=== PATIENT | female | born 1950 | race Caucasian/White ===

== ENCOUNTER 2016-08-24 15:16 | Emergency (ER) | payer MEDICARE, MEDICAID | END 2016-08-24 16:40 | disposition home or self-care (01) | DX: S83.8X2A Sprain of other specified parts of left knee, initial encounter (principal); W01.0XXA Fall on same level from slipping, tripping and stumbling without subsequent striking against object, initial encounter; Y93.01 Activity, walking, marching and hiking; Y92.017 Garden or yard in single-family (private) house as the place of occurrence of the external cause; I10 Essential (primary) hypertension; E78.00 Pure hypercholesterolemia, unspecified; J44.9 Chronic obstructive pulmonary disease, unspecified; K21.9 Gastro-esophageal reflux disease without esophagitis; M19.90 Unspecified osteoarthritis, unspecified site; F17.200 Nicotine dependence, unspecified, uncomplicated ==

== ENCOUNTER 2017-07-03 08:01 | Outpatient (CLI) | payer MEDICARE, MEDICAID ==
[2017-07-03 10:35] LABS: BASOPHILS % (AUTO) 0.5 %; EOSINOPHILS # (AUTO) 0.3 10^3/uL (0.0-0.7); EOSINOPHILS % (AUTO) 3.6 %; HGB - HEMOGLOBIN 13.7 g/dL (12.0-16.0); LYMPHOCYTES # (AUTO) 2.6 10^3/uL (1.5-3.5); LYMPHOCYTES % (AUTO) 34.1 %; MEAN CORPUSCULAR HEMOGLOBIN 30.4 pg (27.0-31.0); MEAN CORPUSCULAR HGB CONC 33.7 g/dL (32.0-36.0); MEAN CORPUSCULAR VOLUME 90.3 fL (81.0-99.0); MEAN PLATELET VOLUME 7.9 fL (7.9-10.8); MONOCYTES # (AUTO) 0.6 10^3/uL (0.0-1.0); MONOCYTES % (AUTO) 8.3 %; NEUTROPHILS # (AUTO) 4.1 10^3/uL (1.5-6.6); NEUTROPHILS % (AUTO) 53.5 %; PLT - PLATELET COUNT 274 10^3/uL (130-450); RED BLOOD COUNT 4.52 10^6/uL (4.20-5.40); RED CELL DISTRIBUTION WIDTH 14.1 % (12.0-15.0); WHITE BLOOD COUNT 7.6 x10^3/uL (4.8-10.8)
[2017-07-03 10:55] LABS: ALBUMIN 3.8 g/dL (3.2-5.5); ALBUMIN/GLOBULIN RATIO 1.2 (1.0-2.2); ALKALINE PHOSPHATASE 91 IU/L (42-121); ALT ALANINE AMINOTRANSFERASE 22 IU/L (10-60); AST ASPARTATE AMINOTRANSFERASE 20 IU/L (10-42); BILIRUBIN,TOTAL 0.4 mg/dL (0.2-1.0); BUN - BLOOD UREA NITROGEN 16 mg/dL (6-20); CALCIUM 9.2 mg/dL (8.5-10.3); CARBON DIOXIDE - CO2 24 mmol/L (21-32); CHLORIDE 103 mmol/L (101-111); CHOL/HDL RATIO 6.8 (<4.4); CHOLESTEROL 291 mg/dL; CREATININE 0.8 mg/dL (0.4-1.0); GFR - MDRD 72 (>89); GLUCOSE 128 mg/dL (70-100); HDL CHOLESTEROL 43 mg/dL; LDL CHOLESTEROL,CALCULATED 211 mg/dL; LDL/HDL RATIO 4.9 (<4.4); SODIUM 138 mmol/L (135-145); TOTAL PROTEIN 6.9 g/dL (6.7-8.2); VLDL CHOLESTEROL 37 mg/dL
== END 2017-07-03 08:02 | disposition home or self-care (01) ==
LOC: LAB.F 08:01
PROVIDERS: ATTEND Nurse Practitioner Family
DX: I10 Essential (primary) hypertension (principal); Z86.79 Personal history of other diseases of the circulatory system; F32.9 Major depressive disorder, single episode, unspecified
CPT/HCPCS: 36415; 80053; 80061; 83721; 84443; 85025

== ENCOUNTER 2017-07-07 13:24 | Emergency (ER) | payer MEDICARE, MEDICAID ==
--- NOTE | 2017-07-07 15:13 | ED Physician Documentation ---
History of Present Illness - Stated complaint Stated Complaint: LOWER ABD PX - Chief complaint Chief Complaint: Abd Pain - Additonal information Additional information: hx from pt 66 female s/p efraín to ER with subacute (several months) but acutely worse upper abd pain is taking prilocec and pepto s relief saw PMD and had labs 07/03 no imaging no fever no cp no soa no cough no back pain no dysuria one episode of diarrhea, no blood (dark from pepto) no vomiting, some nasuea also a SUTTON now which she thinks is due to dehydration Review of Systems Constitutional: denies: Fever Cardiac: denies: Chest pain / pressure Respiratory: denies: Dyspnea GI: reports: Abdominal Pain, Nausea, Diarrhea, Bloody / black stool (pepto) Neurologic: denies: Generalized weakness Endocrine: denies: Easy bruising / bleeding Immunocompromised: denies: Immunocompromised PD PAST MEDICAL HISTORY - Past Medical History Cardiovascular: Hypertension, High cholesterol Respiratory: COPD Neuro: Headache/migraine Endocrine/Autoimmune: None GI: GERD HIGH TENSION TESTER: None : None HEENT: None Psych: Depression, Anxiety Musculoskeletal: Chronic back pain Derm: None - Past Surgical History Past Surgical History: Yes Ortho: Knee replacement - Present Medications Home Medications: Ambulatory Orders Medication Instructions Recorded Confirmed Meloxicam 15 mg ORAL DAILY 04/03/14 01/13/16 Ziprasidone [Geodon] 60 mg PO DAILY 01/13/16 01/13/16 FLUoxetine [PROzac] 20 mg PO DAILY 02/03/16 Losartan [Cozaar] 50 mg PO DAILY 02/03/16 Nystatin 200,000 unit PO TID #300 ml 02/03/16 OLANZapine [Olanzapine] 5 mg PO DAILY 02/03/16 Trazodone HCl 100 mg PO DAILY 02/03/16 lamoTRIgine [LaMICtal] 200 mg PO 02/03/16 oxyCODONE/ACET 5/325 [Percocet 5 1 each PO Q4-6H PRN #12 tablet 08/24/16 mg/325 mg] Nitrofurantoin [Macrobid] 100 mg PO BID #14 capsule 07/07/17 Sucralfate 1 gm PO ACHS #120 tablet 07/07/17 raNITIdine [Zantac] 150 mg PO BID #60 tablet 07/07/17 - Allergies Allergies/Adverse Reactions: Allergies Allergy/AdvReac Type Severity Reaction Status Date / Time Penicillins Allergy Hives Verified 01/13/16 04:09 Sulfa (Sulfonamide Allergy Hives Verified 01/13/16 04:09 Antibiotics) - Social History Does the pt smoke?: Yes Smoking Status: Current every day smoker Does the pt drink ETOH?: No Does the pt have substance abuse?: No - Immunizations Immunizations are current?: No Immunizations: TDAP >10years/unknown - POLST Patient has POLST: No PD ED PE NORMAL - Vitals Vital signs reviewed: Yes - Neck Neck: Supple, no meningeal sign - Cardiac Cardiac: RRR - Respiratory Respiratory: No respiratory distress, Clear bilaterally - Abdomen Abdomen: Other (marked TTP with vol guarding upper abd, lower abd benign) - Derm Derm: Normal color - Extremities Extremities: No deformity Results - Vitals Vitals: Vital Signs - 24 hr 07/07/17 07/07/17 07/07/17 13:48 16:31 17:43 Temperature 36.7 C Heart Rate 81 95 95 Respiratory 16 15 16 Rate Blood Pressure 155/95 H 160/91 H 146/93 H O2 Saturation 96 93 93 Oxygen O2 Source Room air - Labs Labs: Laboratory Tests 07/07/17 07/07/17 07/07/17 15:09 15:09 15:09 WBC 9.4 RBC 4.64 Hgb 14.2 Hct 41.8 MCV 90.2 MCH 30.5 MCHC 33.8 RDW 14.3 Plt Count 279 MPV 7.6 L Neut # 5.0 Lymph # 3.5 Worth # 0.7 Eos # 0.2 Baso # 0.1 Absolute Nucleated RBC 0.00 Nucleated RBC % 0.0 Sodium 137 Potassium 3.8 Chloride 105 Carbon Dioxide 23 Anion Gap 9.0 BUN 16 Creatinine 0.9 Estimated GFR (MDRD) 62 L Glucose 103 H Calcium 9.3 Total Bilirubin 0.6 AST 27 ALT 24 Alkaline Phosphatase 101 Troponin I < 0.04 Total Protein 7.5 Albumin 4.4 Globulin 3.1 Albumin/Globulin Ratio 1.4 Lipase 13 L Urine Color Urine Clarity Urine pH Ur Specific [place] Urine Protein Urine Glucose (UA) Urine Ketones Urine Occult Blood Urine Nitrite Urine Bilirubin Urine Urobilinogen Ur Leukocyte Esterase Urine RBC Urine WBC Urine WBC Clumps Ur Squamous Epith Cells Urine Bacteria Ur Microscopic Review Urine Culture Comments 02/19/18 15:28 WBC RBC Hgb Hct MCV MCH MCHC RDW Plt Count MPV Neut # Lymph # Worth # Eos # Baso # Absolute Nucleated RBC Nucleated RBC % Sodium Potassium Chloride Carbon Dioxide Anion Gap BUN Creatinine Estimated GFR (MDRD) Glucose Calcium Total Bilirubin AST ALT Alkaline Phosphatase Troponin I Total Protein Albumin Globulin Albumin/Globulin Ratio Lipase Urine Color YELLOW Urine Clarity HAZY Urine pH 5.5 Ur Specific [place] 1.025 Urine Protein NEGATIVE Urine Glucose (UA) NEGATIVE Urine Ketones NEGATIVE Urine Occult Blood TRACE-INTA Urine Nitrite POSITIVE H Urine Bilirubin NEGATIVE Urine Urobilinogen 0.2 (NORMAL) Ur Leukocyte Esterase TRACE H Urine RBC 0-5 Urine WBC 11-25 H Urine WBC Clumps PRESENT Ur Squamous Epith Cells MANY Squamous H Urine Bacteria Many H Ur Microscopic Review INDICATED Urine Culture Comments NOT INDICATED - Rads (name of study) CT AP with PO and IV Radiology: See rad report (short segment of mild wall thickening near the hepatic flexure with no mass or obstruction could be peristalsis, ? blood in stool, rec colonoscopy, diverticulosis, fatty liver, s/p efraín) PD MEDICAL DECISION MAKING - ED course ED course: nl labs except UTI CT shows possible wall thickening near hepatic flexure and scopes are rec no perf, AAA, ischemic bowel etc will dc with continued prilosec, add zantac and carafate and refer to surgery for scopes as outpt and ab for UTI (+ eps but + nitrates and leuk est so do not think contaminate) Departure - Departure Disposition: 01 Home, Self Care Clinical Impression: Abdominal pain Qualifiers: Abdominal location: epigastric Qualified Code(s): R10.13 - Epigastric pain Urinary tract infection Qualifiers: Urinary tract infection type: site unspecified Hematuria presence: without hematuria Qualified Code(s): N39.0 - Urinary tract infection, site not specified Condition: Good Instructions: ED Abdominal Pain Unkn Cause, ED PUD Vs Gastritis Follow-Up: GATO PRIEST MD [Provider Admit Priv/Credential] - (for endoscopy and colonoscopy) Prescriptions: Nitrofurantoin [Macrobid] 100 mg PO BID #14 capsule raNITIdine [Zantac] 150 mg PO BID #60 tablet Sucralfate 1 gm PO ACHS #120 tablet Comments: Your labs looked fine except for a UTI - normal liver kidney and pancreas function, no anemia to suggest blood loss. The CT scan showed a thickened section or large bowel near your liver and you will need a colonoscopy to make sure this is not cancer. There was no bowel perforation/infection/blockage, no aneurysm, no kidney stones , no internal bleeding. So you do not need emergent surgery or admission. It is OK for you to go home. I recommend adding zantac and carafate to your prilosec. You can also take tylenol as needed for the pain but I do not recommend anything stronger as that might mask worsening or changing symptoms that we should know about And I have referred you to the surgeons to have scopes of your stomach to look for gastritis and ulcer disease as well as for a colonoscopy to evaluate the thickened area of bowel And I prescribed an antibiotic for the urine infection
[2017-07-07 15:15] LABS: BASOPHILS # (AUTO) 0.1 10^3/uL (0.0-0.1); BASOPHILS % (AUTO) 0.7 %; EOSINOPHILS # (AUTO) 0.2 10^3/uL (0.0-0.7); EOSINOPHILS % (AUTO) 1.7 %; HGB - HEMOGLOBIN 14.2 g/dL (12.0-16.0); LYMPHOCYTES # (AUTO) 3.5 10^3/uL (1.5-3.5); MEAN CORPUSCULAR HEMOGLOBIN 30.5 pg (27.0-31.0); MEAN CORPUSCULAR HGB CONC 33.8 g/dL (32.0-36.0); MEAN CORPUSCULAR VOLUME 90.2 fL (81.0-99.0); MEAN PLATELET VOLUME 7.6 fL (7.9-10.8); MONOCYTES # (AUTO) 0.7 10^3/uL (0.0-1.0); MONOCYTES % (AUTO) 7.5 %; NEUTROPHILS % (AUTO) 53.1 %; PLT - PLATELET COUNT 279 10^3/uL (130-450); RED BLOOD COUNT 4.64 10^6/uL (4.20-5.40); RED CELL DISTRIBUTION WIDTH 14.3 % (12.0-15.0); WHITE BLOOD COUNT 9.4 x10^3/uL (4.8-10.8)
[2017-07-07 15:28] LABS: ALBUMIN 4.4 g/dL (3.2-5.5); ALBUMIN/GLOBULIN RATIO 1.4 (1.0-2.2); BILIRUBIN,TOTAL 0.6 mg/dL (0.2-1.0); CALCIUM 9.3 mg/dL (8.5-10.3); CREATININE 0.9 mg/dL (0.4-1.0); TOTAL PROTEIN 7.5 g/dL (6.7-8.2)
[2017-07-07] MEDS ORDERED: IOPAMIDOL-300 50 ML VIAL ONE (15:32)
[2017-07-07] MEDS ORDERED: IOPAMIDOL-300 100 ML VIAL ONE (15:32)
[2017-07-07 15:37] LABS: BILIRUBIN,URINE NEGATIVE (NEGATIVE); GLUCOSE, URINE (UA) NEGATIVE (NEGATIVE); KETONES,URINE (UA) NEGATIVE (NEGATIVE); LEUKOCYTE ESTERASE, URINE TRACE (NEGATIVE); NITRITE,URINE POSITIVE (NEGATIVE); OCCULT BLOOD,URINE TRACE-INTA (NEGATIVE); PH,URINE 5.5 PH (5.0-7.5); PROTEIN,URINE NEGATIVE (NEGATIVE); UROBILINOGEN,URINE 0.2 (NORMAL) E.U./dL (NORMAL)
[2017-07-07 15:40] LABS: CLARITY,URINE HAZY (CLEAR)
[2017-07-07 15:48] LABS: BACTERIA,URINE Many /HPF (None Seen); RBC,URINE 0-5 /HPF (0-5); SQUAMOUS EPITHELIAL CELL,UR MANY Squamous (<= Few); WBC CLUMPS,URINE PRESENT
[2017-07-07] MEDS ORDERED: MORPHINE 2 MG/ML CARPUJECT IVP STA (16:18)
[2017-07-07] MEDS ORDERED: FAMOTIDINE 20 MG/50 ML 50 ML IV ONE (16:18)
[2017-07-07] MEDS ORDERED: IOPAMIDOL-300 50 ML VIAL PO ONE (17:25)
[2017-07-07] MEDS ORDERED: IOPAMIDOL-300 100 ML VIAL IVP ONE (17:26)
--- NOTE | 2017-07-07 18:06 | CT Preliminary Report ---
Exam: CT ABDOMEN/PELVIS W/ IMPRESSION: 1. Short segment of mild wall thickening in the colon at the hepatic flexure without a definitive mas s or evidence of obstruction. No significant adjacent inflammation. This could be due to peristalsis. Recommend correlating with anemia or positive occult blood in the stool. At present, patient may balaji efit from further imaging with colonoscopy. 2. Diverticulosis. No inflammation. 3. Fatty liver. No mass. 4. Patient status post cholecystectomy. No common bile duct and intrahepatic bile duct dilation. [facility] SITE ID: [id number]
--- NOTE | 2017-07-07 18:21 | CT Report ---
EXAM: CT ABDOMEN AND PELVIS EXAM DATE: 07/07/2017 05:13 PM. CLINICAL HISTORY: Upper abdomen pain. COMPARISONS: Ultrasound 01/13/2016. CT abdomen and pelvis 07/12/2014. TECHNIQUE: Routine helical CT imaging was performed through the abdomen and pelvis. IV contrast: Isov ue 300 100 mL. Enteric contrast: Yes. Reconstructions: Coronal and sagittal. In accordance with CT protocol optimization, one or more of the following dose reduction techniques w ere utilized for this exam: automated exposure control, adjustment of mA and/or KV based on patient s ize, or use of iterative reconstructive technique. FINDINGS: Lung Bases: Mild cardiac enlargement. Small hiatal hernia. Trace pericardial effusion. No significant pleural effusion. Liver: Fatty liver without mass or intrahepatic bile duct dilation. Gallbladder/Bile Ducts: Gallbladder is absent. No common bile duct dilation noted. Spleen: Normal. Pancreas: Normal. Adrenal Glands: Normal. Kidneys: Normal. No masses or hydronephrosis. Peritoneal Cavity/Bowel: No free fluid, free air or adenopathy. No acute inflammatory process. Normal stomach and small bowel. Colonic diverticulosis is present. There is a short segment of mild wall th ickening of the colon at the hepatic flexure best seen on image 5, 30. These findings are less conspi cuous on the sagittal reconstruction. Similar findings are also noted on the axial image 34. No signi ficant adjacent inflammation. Pelvic Organs: Normal. The bladder and visualized pelvic organs are within normal limits. Vasculature: Diffuse atheromatous plaques are present in the abdominal aorta and branch vessels. No a neurysm. Normal IVC. Bones: No significant abnormality. Other: None. IMPRESSION: 1. Short segment of mild wall thickening in the colon at the hepatic flexure without a definitive mas s or evidence of obstruction. No significant adjacent inflammation. Imaging findings favor peristalsi s. Recommend correlating with anemia or positive occult blood in the stool. If present, patient may b enefit from further imaging with colonoscopy. 2. Diverticulosis. No inflammation. 3. Fatty liver. No mass. 4. Patient is status post cholecystectomy. No common bile duct or new intrahepatic bile duct dilation . [facility] Referring Provider Line: [phone] SITE ID: [id number]
[2017-07-07 18:52] VITALS: BP 153/90
== END 2017-07-07 19:00 | disposition home or self-care (01) ==
LOC: ED 13:24
DX: R10.13 Epigastric pain (principal); N39.0 Urinary tract infection, site not specified; R93.5 Abnormal findings on diagnostic imaging of other abdominal regions, including retroperitoneum; I10 Essential (primary) hypertension; E78.00 Pure hypercholesterolemia, unspecified; F17.200 Nicotine dependence, unspecified, uncomplicated; Z96.659 Presence of unspecified artificial knee joint
CPT/HCPCS: 36415; 74177; 80053; 81001; 83690; 84484; 85025; 96365; 96375; 99283; 99284; Q9967; 81003; 87086

== ENCOUNTER 2017-07-12 11:38 | Emergency (ER) | payer MEDICARE, MEDICAID ==
[2017-07-12] MEDS ORDERED: MAG HYDROX/AL HYDROX/SIMETH 30 ML UDC PO STA (12:39)
[2017-07-12] MEDS ORDERED: LIDOCAINE VISCOUS 2% 15 ML UDC MM STA (12:39)
--- NOTE | 2017-07-12 12:40 | ED Physician Documentation ---
PD HPI ABD PAIN - Stated complaint Stated Complaint: ABD PAIN - Chief complaint Chief Complaint: Abd Pain - History obtained from History obtained from: Patient, Family () - History of Present Illness Timing - onset: Other (For the last 2 months she has had daily intermittent epigastric pain that radiates through to the back that is worse after eating after about 20 minutes after eating. It does not get worse with water. She has been on a PPI and Carafate without relief. She had a CT scan showing some thickening of the hepatic flexure within the last week but no other abnormalities. Labs were grossly normal at that time. She has a referral to surgery to be done next Friday for evaluation, probably likely to follow with upper and lower endoscopies. Of note she admits to having a history of opiate abuse which is not active.) Review of Systems Ten Systems: 10 systems reviewed and negative Constitutional: denies: Fever, Chills Nose: denies: Rhinorrhea / runny nose, Congestion GI: reports: Abdominal Pain, Nausea. 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 : None HEENT: None Psych: Depression, Anxiety Musculoskeletal: Chronic back pain Derm: None - Past Surgical History Past Surgical History: Yes Ortho: Knee replacement - Present Medications Home Medications: Ambulatory Orders Medication Instructions Recorded Confirmed Meloxicam 15 mg ORAL DAILY 04/03/14 01/13/16 Ziprasidone [Geodon] 60 mg PO DAILY 01/13/16 01/13/16 FLUoxetine [PROzac] 20 mg PO DAILY 02/03/16 Losartan [Cozaar] 50 mg PO DAILY 02/03/16 Nystatin 200,000 unit PO TID #300 ml 02/03/16 OLANZapine [Olanzapine] 5 mg PO DAILY 02/03/16 Trazodone HCl 100 mg PO DAILY 02/03/16 lamoTRIgine [LaMICtal] 200 mg PO 02/03/16 oxyCODONE/ACET 5/325 [Percocet 5 1 each PO Q4-6H PRN #12 tablet 08/24/16 mg/325 mg] Nitrofurantoin [Macrobid] 100 mg PO BID #14 capsule 07/07/17 Sucralfate 1 gm PO ACHS #120 tablet 07/07/17 raNITIdine [Zantac] 150 mg PO BID #60 tablet 07/07/17 Omeprazole [PriLOSEC] 20 mg PO BID #60 capsule 07/12/17 Oxycodone HCl/Acetaminophen 1 - 2 tab PO Q4H PRN #15 tablet 07/12/17 [Percocet 5-325 mg Tablet] - Allergies Allergies/Adverse Reactions: Allergies Allergy/AdvReac Type Severity Reaction Status Date / Time Penicillins Allergy Hives Verified 07/12/17 11:48 Sulfa (Sulfonamide Allergy Hives Verified 07/12/17 11:48 Antibiotics) - Social History Does the pt smoke?: Yes Smoking Status: Current every day smoker Does the pt drink ETOH?: No Does the pt have substance abuse?: No - Immunizations Immunizations are current?: No Immunizations: TDAP >10years/unknown - POLST Patient has POLST: No PD ED PE NORMAL - Vitals Vital signs reviewed: Yes - General General: Alert and oriented X 3, No acute distress - Cardiac Cardiac: RRR, No murmur - Respiratory Respiratory: No respiratory distress, Clear bilaterally - Abdomen Abdomen: Normal bowel sounds, Soft, Non tender - Extremities Extremities: No edema, No calf tenderness / cord - Neuro Neuro: Alert and oriented X 3, Normal speech Results - Vitals Vitals: Vital Signs - 24 hr 07/12/17 11:43 Temperature 37.0 C Heart Rate 89 Respiratory 20 Rate Blood Pressure 153/84 H O2 Saturation 97 Oxygen O2 Source Room air - Labs Labs: Laboratory Tests 07/12/17 07/12/17 07/12/17 12:42 12:42 12:48 WBC 7.7 RBC 4.24 Hgb 13.1 Hct 38.3 MCV 90.3 MCH 30.9 MCHC 34.2 RDW 14.3 Plt Count 256 MPV 7.6 L Neut # 3.8 Lymph # 3.0 [place] # 0.5 Eos # 0.3 Baso # 0.0 Absolute Nucleated RBC 0.00 Nucleated RBC % 0.1 Sodium 140 Potassium 3.7 Chloride 104 Carbon Dioxide 24 Anion Gap 12.0 BUN 18 Creatinine 0.9 Estimated GFR (MDRD) 62 L Glucose 91 Calcium 8.9 Total Bilirubin 0.3 AST 23 ALT 22 Alkaline Phosphatase 95 Total Protein 7.0 Albumin 3.9 Globulin 3.1 Albumin/Globulin Ratio 1.3 Lipase 21 L Urine Color YELLOW Urine Clarity CLEAR Urine pH 6.0 Ur Specific [place] 1.025 Urine Protein NEGATIVE Urine Glucose (UA) NEGATIVE Urine Ketones NEGATIVE Urine Occult Blood TRACE-INTA Urine Nitrite NEGATIVE Urine Bilirubin NEGATIVE Urine Urobilinogen 0.2 (NORMAL) Ur Leukocyte Esterase NEGATIVE Ur Microscopic Review NOT INDICATED Urine Culture Comments NOT INDICATED Urine Opiates Screen NEGATIVE Ur Oxycodone Screen NEGATIVE Urine Methadone Screen NEGATIVE Ur Propoxyphene Screen NEGATIVE Ur Barbiturates Screen NEGATIVE Ur Tricyclics Screen NEGATIVE Ur Phencyclidine Scrn NEGATIVE Ur Amphetamine Screen NEGATIVE U Methamphetamines Scrn NEGATIVE U Benzodiazepines Scrn NEGATIVE Urine Cocaine Screen NEGATIVE U Cannabinoids Screen NEGATIVE PD MEDICAL DECISION MAKING - ED course ED course: 66-year-old woman with subacute epigastric pain that is worsening status post negative mostly CT within the last week and is scheduled for surgical consultation. Her labs remain benign. She had partial relief with a GI cocktail here. We discussed with her the timing of medications especially with regard to sucralfate. She does have a history of narcotic addiction but would like some pain medications and the will hold them. Departure - Departure Disposition: 01 Home, Self Care Clinical Impression: Abdominal pain Qualifiers: Abdominal location: epigastric Qualified Code(s): R10.13 - Epigastric pain Condition: Good Record reviewed to determine appropriate education?: Yes Instructions: ED Abdominal Pain Unkn Cause Prescriptions: Omeprazole [PriLOSEC] 20 mg PO BID #60 capsule Oxycodone HCl/Acetaminophen [Percocet 5-325 mg Tablet] 1 - 2 tab PO Q4H PRN #15 tablet PRN Reason: Pain Comments: Call your doctor to arrange a follow-up appointment, make the next available appointment. In the interim, return anytime if worse or if new symptoms develop. Your blood pressure was elevated today on check into the emergency department. This does not mean that you have hypertension, it is a common phenomenon to come to the emergency department and have elevated blood pressure. I recommend that you see your primary care physician within the week to have it rechecked when you are feeling better. Do not drink or drive while taking narcotic pain medication. Note that many narcotic pain relievers also contain Tylenol/acetaminophen. Please ensure that your total dose of acetaminophen from all sources does not exceed 3 g (3000 mg) per day. You may get constipated while on this medication. Take a stool softener such as Colace twice a day while you are on it. Also add an [id number] laxative such as senna or MiraLAX on any day that you do not have a bowel movement. If you received a narcotic pain medication or sedative while in the emergency department, do not drive for the next 24 hours.
[2017-07-12 12:53] LABS: MUDS CUTOFF CONCENTRATIONS CUTOFF CONC BELOW:
[2017-07-12 12:55] LABS: BILIRUBIN,URINE NEGATIVE (NEGATIVE); GLUCOSE, URINE (UA) NEGATIVE (NEGATIVE); KETONES,URINE (UA) NEGATIVE (NEGATIVE); LEUKOCYTE ESTERASE, URINE NEGATIVE (NEGATIVE); NITRITE,URINE NEGATIVE (NEGATIVE); OCCULT BLOOD,URINE TRACE-INTA (NEGATIVE); PROTEIN,URINE NEGATIVE (NEGATIVE); UROBILINOGEN,URINE 0.2 (NORMAL) E.U./dL (NORMAL)
[2017-07-12 12:57] LABS: CLARITY,URINE CLEAR (CLEAR)
[2017-07-12 13:00] LABS: BASOPHILS % (AUTO) 0.4 %; EOSINOPHILS # (AUTO) 0.3 10^3/uL (0.0-0.7); EOSINOPHILS % (AUTO) 3.7 %; HGB - HEMOGLOBIN 13.1 g/dL (12.0-16.0); LYMPHOCYTES % (AUTO) 39.2 %; MEAN CORPUSCULAR HEMOGLOBIN 30.9 pg (27.0-31.0); MEAN CORPUSCULAR HGB CONC 34.2 g/dL (32.0-36.0); MEAN CORPUSCULAR VOLUME 90.3 fL (81.0-99.0); MEAN PLATELET VOLUME 7.6 fL (7.9-10.8); MONOCYTES # (AUTO) 0.5 10^3/uL (0.0-1.0); MONOCYTES % (AUTO) 6.8 %; NEUTROPHILS # (AUTO) 3.8 10^3/uL (1.5-6.6); NEUTROPHILS % (AUTO) 49.9 %; PLT - PLATELET COUNT 256 10^3/uL (130-450); RED BLOOD COUNT 4.24 10^6/uL (4.20-5.40); RED CELL DISTRIBUTION WIDTH 14.3 % (12.0-15.0); WHITE BLOOD COUNT 7.7 x10^3/uL (4.8-10.8)
[2017-07-12 13:06] LABS: AMPHETAMINE SCREEN,URINE NEGATIVE (NEGATIVE); BENZODIAZEPINES SCREEN, URINE NEGATIVE (NEGATIVE); COCAINE SCREEN URINE NEGATIVE (NEGATIVE); METHADONE SCREEN, URINE NEGATIVE (NEGATIVE); METHAMPHETAMINES SCREEN, URINE NEGATIVE (NEGATIVE); OPIATE SCREEN, URINE NEGATIVE (NEGATIVE); OXYCODONE SCREEN, URINE NEGATIVE (NEGATIVE); PROPOXYPHENE SCREEN, URINE NEGATIVE (NEGATIVE); TRICYCLIC ANTIDEPRESSANT,URINE NEGATIVE (NEGATIVE)
[2017-07-12 13:08] LABS: ALBUMIN 3.9 g/dL (3.2-5.5); ALBUMIN/GLOBULIN RATIO 1.3 (1.0-2.2); BILIRUBIN,TOTAL 0.3 mg/dL (0.2-1.0); CALCIUM 8.9 mg/dL (8.5-10.3); CREATININE 0.9 mg/dL (0.4-1.0)
[2017-07-12] MEDS ORDERED: oxyCOD/ACETAMIN 5 MG/325 MG TABLET PO STA (13:23)
[2017-07-12 13:46] VITALS: BP 144/69
== END 2017-07-12 13:44 | disposition home or self-care (01) ==
LOC: ED 11:38
DX: R10.31 Right lower quadrant pain (principal); I10 Essential (primary) hypertension; E78.00 Pure hypercholesterolemia, unspecified; Z96.659 Presence of unspecified artificial knee joint
CPT/HCPCS: 36415; 80053; 80306; 81003; 83690; 85025; 99283; A9270; 81001; 87086

== ENCOUNTER 2017-07-21 21:31 | Outpatient (CLI) | payer MEDICARE, MEDICAID ==
[2017-07-21 17:17] LABS: BILIRUBIN,URINE NEGATIVE (NEGATIVE); GLUCOSE, URINE (UA) NEGATIVE (NEGATIVE); KETONES,URINE (UA) NEGATIVE (NEGATIVE); LEUKOCYTE ESTERASE, URINE TRACE (NEGATIVE); NITRITE,URINE POSITIVE (NEGATIVE); OCCULT BLOOD,URINE TRACE-INTA (NEGATIVE); PROTEIN,URINE NEGATIVE (NEGATIVE); UROBILINOGEN,URINE 0.2 (NORMAL) E.U./dL (NORMAL)
[2017-07-21 17:23] LABS: BACTERIA,URINE Few /HPF (None Seen); CLARITY,URINE CLEAR (CLEAR); RBC,URINE 0-5 /HPF (0-5); SQUAMOUS EPITHELIAL CELL,UR RARE Squamous (<= Few)
== END 2017-07-21 21:32 | disposition home or self-care (01) ==
LOC: LAB.R 21:31
PROVIDERS: ATTEND Nurse Practitioner Family
DX: R30.0 Dysuria (principal)
CPT/HCPCS: 81001; 87086

== ENCOUNTER 2017-08-05 13:30 | Outpatient (CLI) | payer MEDICARE, MEDICAID | END 2017-08-05 13:31 | disposition home or self-care (01) | LOC: LAB.R 13:30 | PROVIDERS: ATTEND Nurse Practitioner Family | DX: R30.0 Dysuria (principal) | CPT/HCPCS: 87086 ==

== ENCOUNTER 2017-08-07 07:00 | Day surgery (SDC) | payer MEDICARE, MEDICAID ==
[2017-08-07] MEDS ORDERED: LACTATED RINGERS 1,000 ML IV ONE ×2 (07:22→08:40)
[2017-08-07] MEDS ORDERED: MIDAZOLAM 2 MG/2 ML VIAL IVP ONE (08:13)
[2017-08-07] MEDS ORDERED: fentaNYL 250 MCG/5 ML VIAL IVP ONE (08:13)
--- NOTE | 2017-08-07 08:15 | HISTORY & PHYSICAL EXAMINATION ---
HPI - History of Present Illness HPI Comment/Other: Patient is here for epigastric pain, nausea, GERD and colonic thickening on CT. Since her last visit with me the epigastric pain has resolved. She is continuing to take omeprazole and carafate. Current Meds: OXYCODONE HCL 5 MG ORAL TABLET (OXYCODONE HCL) Take one to two tablets by mouth as needed SUCRALFATE 1 GM ORAL TABLET (SUCRALFATE) Dissolve one tablet in water, drink before meals and bedtime, four times daily ONDANSETRON 4 MG ORAL TABLET DISINTEGRATING (ONDANSETRON) one tablet every 8 hrs as needed for nausea FLONASE 50 MCG/ACT NASAL SUSPENSION (FLUTICASONE PROPIONATE) one puff each nostril each day for sinus congestion LAMOTRIGINE 200 MG ORAL TABLET (LAMOTRIGINE) Take two tablets at bedtime LOSARTAN POTASSIUM 50 MG ORAL TABLET (LOSARTAN POTASSIUM) Take one tablet by mouth daily SERTRALINE HCL 100 MG ORAL TABLET (SERTRALINE HCL) one tablet by mouth daily for mood [facility] OMEPRAZOLE 20 MG ORAL TABLET DELAYED RELEASE (OMEPRAZOLE) one tablet by mouth daily for GERD TRAZODONE HCL 100 MG ORAL TABLET (TRAZODONE HCL) 1 tab po daily VITAMIN D 1000 UNIT ORAL TABLET (CHOLECALCIFEROL) 8 daily for vit D deficiency Past Medical History: Reviewed history from 03/28/2017 and no changes required: pneumonia alcoholism-sober x 2 years. Attends [employer] smoker-trying to quit Anxiety Asthma Depression High blood pressure Migraines Sleep Apnea Hyperlipidemia Emphysema Chronic Cough Severe Snoring Frequent Indigestion Heartbeat Acid Reflux Stomach ulcer Prednisone Use Dentures Claustrophobia Past Surgical History: Reviewed history from 09/05/2016 and no changes required: arthroscopic left knee x2 Carpal Tunnel Release Knee Arthroscopy Total Knee Arthroplasty Urinary incontinence surgery Denies any prior history of complications from anesthesia. Denies any history of surgical complications. Family History Summary: Reviewed history Last on 02/18/2017 and no changes required:07/15/2017 Mother (biol.) - Has Family History of Alcoholism - Entered On: 09/05/2016 Mother (biol.) - Has Family History of Arthritis - Entered On: 09/05/2016 Mother (biol.) - Has Family History of Anxiety - Entered On: 09/05/2016 Mother (biol.) - Has Family History of Hypertension - Entered On: 09/05/2016 Father (biol.) - Has Family History of Arthritis - Entered On: 09/05/2016 Father (nina.) - Has Family History of Depression - Entered On: 09/05/2016 Father (nina.) - Has Family History of Hypertension - Entered On: 09/05/2016 Mother () - Has Family History of Other Medical Problems - cancer - Entered On: 07/15/2017 Father (nina.) - Has Family History of Alcoholism - Entered On: 07/15/2017 General Comments - FH: arthritis and hypertension Social History: Reviewed history from 03/28/2017 and no changes required: Has a daughter in [place]. Lives locally with a partner. Lost her son 4 years ago. Had a seizure and . Unemployed. 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 Risk Factors: Smoked Tobacco Use: Current every day smoker Cigarettes: Yes Drug use: no Alcohol use: no Exercise: yes Times per week: 1 Type of Exercise: walking Review of Systems General Denies weight loss. GI Complains of abdominal pain and nausea. Denies vomiting, diarrhea, constipation and hematochezia. CV Denies chest pains. Resp Denies shortness of breath. Psych Complains of anxiety. Heme Denies bleeding. Medications were reviewed with the patient during this visit. Allergies were reviewed with the patient during this visit. Allergies: PENICILLIN V POTASSIUM (Critical) SULFA (Critical) Physical Exam General: normal appearance and obese. Lungs: clear bilaterally to A & P Heart: regular rate and rhythm, S1, S2 without murmurs, rubs, gallops, or clicks Abdomen: bowel sounds positive; abdomen soft and non-tender without masses, organomegaly, or hernias noted Pulses: pulses normal in all 4 extremities Cervical Nodes: no significant adenopathy Psych: alert and cooperative; normal mood and affect; normal attention span and concentration Impression & Recommendations: proceed with EGD and colonoscopy. PMH/PSH - Past Medical History Cardiovascular: positive: Hypertension, High cholesterol Respiratory: positive: COPD, Sleep apnea, CPAP use Neuro: positive: Headache/migraine Endocrine/Autoimmune: positive: None GI: positive: GERD, Ulcers CLINICAL UNIT COORDINATOR: positive: None : positive: None HEENT: positive: None Psych: positive: Depression, Anxiety, Bipolar disorder, Panic attacks, ADD/ADHD , Claustrophobia Musculoskeletal: positive: Osteoarthritis, Chronic back pain Derm: positive: Eczema MRSA Hx?: No - Past Surgical History Ortho: positive: Knee replacement, Arthroscopic surgery, Carpal Tunnel surgery Social & Family Hx - Social History Does the pt smoke?: Yes Smoking Status: Current every day smoker Does the pt drink ETOH?: No Does the pt have substance abuse?: No - POLST Patient has POLST: No Meds/Allgy - Home Medications Home Medications: Ambulatory Orders Medication Instructions Recorded Confirmed Losartan [Cozaar] 50 mg PO DAILY 02/03/16 08/07/17 OLANZapine [Olanzapine] 5 mg PO DAILY 02/03/16 08/07/17 Trazodone HCl 100 mg PO DAILY 02/03/16 08/07/17 lamoTRIgine [LaMICtal] 200 mg PO BID 02/03/16 08/07/17 Sucralfate 1 gm PO ACHS #120 tablet 07/07/17 08/07/17 raNITIdine [Zantac] 150 mg PO BID #60 tablet 07/07/17 08/07/17 Hyoscyamine [Levsin] 0.125 08/06/17 Sertraline HCl 100 mg PO DAILY 08/06/17 08/07/17 Trazodone HCl 100 mg PO DAILY 08/06/17 08/07/17 Acetaminophen [Tylenol Extra 2 PRN 08/07/17 Strength] Ibuprofen 2 PRN 08/07/17 Ondansetron Odt [Zofran Odt] 1 PRN 08/07/17 - Allergies Allergies/Adverse Reactions: Allergies Allergy/AdvReac Type Severity Reaction Status Date / Time Penicillins Allergy Hives Verified 07/12/17 11:48 Sulfa (Sulfonamide Allergy Hives Verified 07/12/17 11:48 Antibiotics) Exam - Vital Signs Vital Signs: Vital Signs x48h Temp Pulse Resp BP Pulse Ox 08/07/17 07:07 36.2 C L 106 H 18 126/84 H 96
[2017-08-07] MEDS ORDERED: BENZOCAINE/TETRACAINE/BUTAMBEN SPRAY 56 GM TOP ONE (08:18)
[2017-08-07 09:18] VITALS: BP 132/78
== END 2017-08-07 07:01 | disposition home or self-care (01) ==
LOC: SDS 07:00
PROVIDERS: ATTEND Surgery
PROC: 0DJD8ZZ Inspection of Lower Intestinal Tract, Via Natural or Artificial Opening Endoscopic (ICD-10-PCS; principal; 2017-08-07 08:15)
PROC: 0DJ08ZZ Inspection of Upper Intestinal Tract, Via Natural or Artificial Opening Endoscopic (ICD-10-PCS; 2017-08-07 08:15)
DX: K57.30 Diverticulosis of large intestine without perforation or abscess without bleeding (principal); K64.8 Other hemorrhoids; K44.9 Diaphragmatic hernia without obstruction or gangrene; R10.13 Epigastric pain; F41.9 Anxiety disorder, unspecified; F32.9 Major depressive disorder, single episode, unspecified; J45.909 Unspecified asthma, uncomplicated; F17.210 Nicotine dependence, cigarettes, uncomplicated; K21.9 Gastro-esophageal reflux disease without esophagitis
CPT/HCPCS: 43235; 45378; A9270; J3010; J7120

== ENCOUNTER 2017-08-15 10:00 | Outpatient (CLI) | payer MEDICARE, MEDICAID ==
[2017-08-15 17:57] LABS: BILIRUBIN,URINE NEGATIVE (NEGATIVE); GLUCOSE, URINE (UA) NEGATIVE (NEGATIVE); KETONES,URINE (UA) NEGATIVE (NEGATIVE); LEUKOCYTE ESTERASE, URINE NEGATIVE (NEGATIVE); NITRITE,URINE NEGATIVE (NEGATIVE); OCCULT BLOOD,URINE SMALL (NEGATIVE); PROTEIN,URINE NEGATIVE (NEGATIVE); UROBILINOGEN,URINE 0.2 (NORMAL) E.U./dL (NORMAL)
[2017-08-15 18:00] LABS: CLARITY,URINE CLEAR (CLEAR)
[2017-08-15 18:10] LABS: RBC,URINE 0-5 /HPF (0-5); SQUAMOUS EPITHELIAL CELL,UR FEW Squamous (<= Few)
[2017-08-15 18:11] LABS: BACTERIA,URINE Rare /HPF (None Seen)
== END 2017-08-15 10:01 | disposition home or self-care (01) ==
LOC: LAB.R 10:00
PROVIDERS: ATTEND Nurse Practitioner Family
DX: R30.0 Dysuria (principal)
CPT/HCPCS: 81001; 87086

== ENCOUNTER 2017-08-18 19:00 | Outpatient (CLI) | payer MEDICARE, MEDICAID ==
--- NOTE | 2017-08-19 09:12 | Ultrasound Report ---
ABDOMEN ULTRASOUND: 08/18/2017 HISTORY: Acute abdominal pain. COMPARISON: CT scan abdomen and pelvis 07/07/2017. TECHNIQUE: Real-time scanning by the diamond die driller with saved static images reviewed. FINDINGS: LIVER: Mild hepatomegaly with the liver length 17.8 cm. Normal directional portal venous blood flow. Mild diffuse fatty infiltration without focal masses. GALLBLADDER: Surgically absent. COMMON BILE DUCT: 6 mm. PANCREAS: Partially obscured by bowel gas. Pancreatic duct 2.5 mm. KIDNEYS: Right 10.6 cm longitudinally. Left 9.9 cm longitudinally. No evidence of mass, stones, perinephric fluid, or obstruction. SPLEEN: 9.9 cm. AORTA AND INFERIOR VENA CAVA: Unremarkable. FREE FLUID: None. IMPRESSION: MILD HEPATOMEGALY WITH FATTY INFILTRATION OF THE LIVER. STATUS POST CHOLECYSTECTOMY. OTHERWISE NEGATIVE. TD: 08/19/2017 09:11 MTDHalie
== END 2017-08-18 19:01 | disposition home or self-care (01) ==
LOC: DI 19:00
PROVIDERS: ATTEND Nurse Practitioner Family
DX: K76.0 Fatty (change of) liver, not elsewhere classified (principal); Z90.49 Acquired absence of other specified parts of digestive tract
CPT/HCPCS: 76700

== ENCOUNTER 2018-01-09 11:12 | Outpatient (CLI) | payer MEDICARE, MEDICAID ==
[2018-01-09 17:18] LABS: BILIRUBIN,URINE NEGATIVE (NEGATIVE); GLUCOSE, URINE (UA) NEGATIVE (NEGATIVE); KETONES,URINE (UA) NEGATIVE (NEGATIVE); LEUKOCYTE ESTERASE, URINE NEGATIVE (NEGATIVE); NITRITE,URINE NEGATIVE (NEGATIVE); OCCULT BLOOD,URINE TRACE-INTA (NEGATIVE); PROTEIN,URINE NEGATIVE (NEGATIVE); UROBILINOGEN,URINE 0.2 (NORMAL) E.U./dL (NORMAL)
[2018-01-09 17:25] LABS: CLARITY,URINE CLEAR (CLEAR)
[2018-01-09 17:35] LABS: BACTERIA,URINE Many /HPF (None Seen); MUCUS,URINE Few Strands; RBC,URINE 0-5 /HPF (0-5); SQUAMOUS EPITHELIAL CELL,UR MANY Squamous (<= Few)
== END 2018-01-09 11:13 | disposition home or self-care (01) ==
LOC: LAB.F 11:12
PROVIDERS: ATTEND Family Medicine
DX: R31.9 Hematuria, unspecified (principal)
CPT/HCPCS: 81001

== ENCOUNTER 2018-01-25 04:38 | Outpatient (CLI) | payer MEDICARE, MEDICAID | END 2018-01-25 04:39 | disposition short-term general hospital (02) | LOC: EMS 04:38 | PROVIDERS: ATTEND Surgery | DX: R07.9 Chest pain, unspecified (principal); R61 Generalized hyperhidrosis | CPT/HCPCS: A0425; A0433 ==

== ENCOUNTER 2018-04-14 17:04 | Outpatient (CLI) | payer MEDICARE | END 2018-04-14 17:05 | disposition home or self-care (01) | LOC: RT.S 17:04 | PROVIDERS: ATTEND Nurse Practitioner Family | DX: I20.9 Angina pectoris, unspecified (principal) | CPT/HCPCS: 93005 ==

== ENCOUNTER 2019-02-26 08:46 | Outpatient (CLI) | payer MEDICARE, MEDICAID ==
[2019-02-26 18:30] LABS: ALBUMIN 3.9 g/dL (3.2-5.5); ALBUMIN/GLOBULIN RATIO 1.4 (1.0-2.2); ALKALINE PHOSPHATASE 131 IU/L (42-121); ALT ALANINE AMINOTRANSFERASE 21 IU/L (10-60); AST ASPARTATE AMINOTRANSFERASE 20 IU/L (10-42); BILIRUBIN,TOTAL 0.3 mg/dL (0.2-1.0); BUN - BLOOD UREA NITROGEN 26 mg/dL (6-20); CARBON DIOXIDE - CO2 23 mmol/L (21-32); CHLORIDE 108 mmol/L (101-111); CHOL/HDL RATIO 2.9 (<4.4); CHOLESTEROL 188 mg/dL; CREATININE 0.9 mg/dL (0.4-1.0); GFR - MDRD 62 (>89); GLUCOSE 114 mg/dL (70-100); HDL CHOLESTEROL 64 mg/dL; LDL CHOLESTEROL,CALCULATED 108 mg/dL; LDL/HDL RATIO 1.7 (<4.4); SODIUM 140 mmol/L (135-145); TOTAL PROTEIN 6.6 g/dL (6.7-8.2); VLDL CHOLESTEROL 16 mg/dL
[2019-02-26 18:35] LABS: HB2 TOTAL 11.1 g/dL; HEMOGLOBIN A1C 0.49 g/dL; HEMOGLOBIN A1C % 6.2 % (4.6-6.2)
== END 2019-02-26 08:47 | disposition home or self-care (01) ==
LOC: LAB.S 08:46
PROVIDERS: ATTEND Internal Medicine
DX: E78.5 Hyperlipidemia, unspecified (principal); R73.02 Impaired glucose tolerance (oral); F31.31 Bipolar disorder, current episode depressed, mild
CPT/HCPCS: 36415; 80053; 80061; 83036; 83721; 84443

== ENCOUNTER 2019-03-30 09:18 | Outpatient (CLI) | payer MEDICARE, MEDICAID ==
--- NOTE | 2019-03-30 11:52 | XRAY Report ---
Reason: LOW BACK PAIN, HIP PAIN Procedure Date: 03/30/2019 Accession Number: [id number] / [id number] Procedure: XRS - Lumbar Spine 2 View CPT Code: Final Report FULL RESULT: EXAM: LUMBAR SPINE RADIOGRAPHY BILATERAL HIP RADIOGRAPHY EXAM DATE: 03/30/2019 09:43 AM. CLINICAL HISTORY: Bilateral hip/pelvis pain. COMPARISON: Pelvis 1 view 03/01/2014 LUMBAR SPINE 2 VIEW 03/01/2014 2:39 PM. TECHNIQUE: Pelvis with hips 2 views each, lumbar spine, 2 views. FINDINGS: Lumbar Spine: Anterior bridging osteophytes are seen at T11-T12, T12-L1, and L1-L2. There is increased disk space narrowing at L1-L2 since the prior exam. A mild compression deformity is now seen at L2 without significant vertebral body height loss. Anterior osteophytes are also seen at L3, L4, and T10. Facet hypertrophy at L3-L4, L4-L5, and L5-S1 have increased since the prior exam. The spinal alignment is maintained. The sacroiliac joints are normal. Hip/Pelvis: Both hips are seated. The bones of the pelvis are intact and well aligned. There are no acute fractures. Sacroiliac joints are normal. No focal soft tissue swelling is seen. The visible bowel gas pattern is nonobstructive. IMPRESSION: Progressive degenerative changes in the thoracolumbar spine with mild chronic appearing compression deformity, likely chronic, at L1 without significant vertebral body height loss and increased L1-L2 disk space narrowing. No acute osseous abnormality in the pelvis or hips. RADIA
--- NOTE | 2019-03-30 11:52 | XRAY Report ---
Reason: BILATERAL HIP/PELVIS PAIN Procedure Date: 03/30/2019 Accession Number: [id number] / [id number] Procedure: XRS - Hips 2V BILAT CPT Code: Final Report FULL RESULT: EXAM: LUMBAR SPINE RADIOGRAPHY BILATERAL HIP RADIOGRAPHY EXAM DATE: 03/30/2019 09:43 AM. CLINICAL HISTORY: Bilateral hip/pelvis pain. COMPARISON: Pelvis 1 view 03/01/2014 LUMBAR SPINE 2 VIEW 03/01/2014 2:39 PM. TECHNIQUE: Pelvis with hips 2 views each, lumbar spine, 2 views. FINDINGS: Lumbar Spine: Anterior bridging osteophytes are seen at T11-T12, T12-L1, and L1-L2. There is increased disk space narrowing at L1-L2 since the prior exam. A mild compression deformity is now seen at L2 without significant vertebral body height loss. Anterior osteophytes are also seen at L3, L4, and T10. Facet hypertrophy at L3-L4, L4-L5, and L5-S1 have increased since the prior exam. The spinal alignment is maintained. The sacroiliac joints are normal. Hip/Pelvis: Both hips are seated. The bones of the pelvis are intact and well aligned. There are no acute fractures. Sacroiliac joints are normal. No focal soft tissue swelling is seen. The visible bowel gas pattern is nonobstructive. IMPRESSION: Progressive degenerative changes in the thoracolumbar spine with mild chronic appearing compression deformity, likely chronic, at L1 without significant vertebral body height loss and increased L1-L2 disk space narrowing. No acute osseous abnormality in the pelvis or hips. RADIA
== END 2019-03-30 09:19 | disposition home or self-care (01) ==
LOC: DI.S 09:18
PROVIDERS: ATTEND Family Medicine
DX: M47.816 Spondylosis without myelopathy or radiculopathy, lumbar region (principal); M47.817 Spondylosis without myelopathy or radiculopathy, lumbosacral region; M43.8X6 Other specified deforming dorsopathies, lumbar region; M47.814 Spondylosis without myelopathy or radiculopathy, thoracic region; M25.551 Pain in right hip; M25.552 Pain in left hip
CPT/HCPCS: 72100; 73521

== ENCOUNTER 2020-05-30 09:14 | Outpatient (CLI) | payer MEDICARE ==
[2020-05-30 15:37] LABS: BASOPHILS % (AUTO) 0.6 %; EOSINOPHILS # (AUTO) 0.5 10^3/uL (0.0-0.7); EOSINOPHILS % (AUTO) 7.8 %; HGB - HEMOGLOBIN 11.6 g/dL (12.0-16.0); LYMPHOCYTES # (AUTO) 1.8 10^3/uL (1.5-3.5); LYMPHOCYTES % (AUTO) 26.7 %; MEAN CORPUSCULAR HEMOGLOBIN 28.2 pg (27.0-31.0); MEAN CORPUSCULAR HGB CONC 30.5 g/dL (32.0-36.0); MEAN CORPUSCULAR VOLUME 92.5 fL (81.0-99.0); MEAN PLATELET VOLUME 10.1 fL (7.9-10.8); MONOCYTES # (AUTO) 0.6 10^3/uL (0.0-1.0); MONOCYTES % (AUTO) 9.2 %; NEUTROPHILS # (AUTO) 3.6 10^3/uL (1.5-6.6); NEUTROPHILS % (AUTO) 55.4 %; PLT - PLATELET COUNT 248 10^3/uL (130-450); RED BLOOD COUNT 4.11 10^6/uL (4.20-5.40); RED CELL DISTRIBUTION WIDTH 13.7 % (12.0-15.0); WHITE BLOOD COUNT 6.6 x10^3/uL (4.8-10.8)
[2020-05-30 15:56] LABS: ALBUMIN 3.9 g/dL (3.2-5.5); ALBUMIN/GLOBULIN RATIO 1.3 (1.0-2.2); ALKALINE PHOSPHATASE 129 IU/L (42-121); ALT ALANINE AMINOTRANSFERASE 18 IU/L (10-60); AST ASPARTATE AMINOTRANSFERASE 16 IU/L (10-42); BILIRUBIN,TOTAL 0.6 mg/dL (0.2-1.0); BUN - BLOOD UREA NITROGEN 18 mg/dL (6-20); CALCIUM 9.1 mg/dL (8.5-10.3); CARBON DIOXIDE - CO2 23 mmol/L (21-32); CHLORIDE 103 mmol/L (101-111); CHOLESTEROL 160 mg/dL; CREATININE 1.1 mg/dL (0.4-1.0); GLUCOSE 113 mg/dL (70-100); HDL CHOLESTEROL 54 mg/dL; LDL CHOLESTEROL,CALCULATED 82 mg/dL; LDL/HDL RATIO 1.5 (<4.4); SODIUM 134 mmol/L (135-145); VLDL CHOLESTEROL 24 mg/dL
[2020-05-30 20:03] LABS: HEMOGLOBIN A1c% 6.4 % (4.27-6.07)
== END 2020-05-30 09:15 | disposition home or self-care (01) ==
LOC: LAB.S 09:14
PROVIDERS: ATTEND Registered Nurse
DX: E78.5 Hyperlipidemia, unspecified (principal); R73.02 Impaired glucose tolerance (oral); I10 Essential (primary) hypertension; G47.33 Obstructive sleep apnea (adult) (pediatric); G47.00 Insomnia, unspecified; F31.31 Bipolar disorder, current episode depressed, mild; K21.9 Gastro-esophageal reflux disease without esophagitis; Z79.899 Other long term (current) drug therapy
CPT/HCPCS: 36415; 80053; 80061; 80175; 83036; 83721; 84443; 85025

== ENCOUNTER 2020-09-10 07:55 | Emergency (ER) | payer MEDICARE ==
--- NOTE | 2020-09-10 08:29 | ED Physician Documentation ---
PD HPI OPHTHO - Stated complaint Stated Complaint: L EYE PX - Chief complaint Chief Complaint: Heent - History obtained from History obtained from: Patient - History of Present Illness Timing - details: Constant Pain level max: 8 Pain level now: 8 Location: Left Quality / character: Aching Associated symptoms: Swelling, Photophobia, Other. No: Tearing, Discharge, Matting, FB sensation Contributing factors: No: Exposed to conjunctivitis, Recent URI, FB, UV light (welding etc), Chemical exposure, acid, Chemical exposure, base, Blunt trauma, Penetrating trauma, Irrigated SOUP MIXER, Wears contacts, Work related - Additional information Additional information: 70-year-old female with left eye pain for the past 10 days. She states nothing seems to make it better or worse. Describes the pain as an 8 out of 10. Has been there constantly. Has been seen at the walk-in clinic x2. She states that she was placed on clindamycin and cefdinir. She states that this has not improved in that time. She does wear reading glasses. Does not wear contacts. Denies any injury to the eye. No tearing. No real change with light. She states her upper eyelid is starting to feel "itchy on the inside". Review of Systems Constitutional: denies: Fever, Chills Eyes: reports: Other (Patient states that her left eye vision is blurred). 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 : None HEENT: None Psych: Depression, Anxiety Musculoskeletal: Chronic back pain Derm: None - Past Surgical History Past Surgical History: Yes Ortho: Knee replacement - Present Medications Home Medications: Ambulatory Orders Medication Instructions Recorded Confirmed Losartan [Cozaar] 50 mg PO DAILY 02/03/16 09/10/20 OLANZapine [Olanzapine] 5 mg PO DAILY 02/03/16 09/10/20 lamoTRIgine [LaMICtal] 200 mg PO BID 02/03/16 09/10/20 raNITIdine [Zantac] 150 mg PO BID #60 tablet 07/07/17 09/10/20 Hyoscyamine [Levsin] 0.125 mg PO PRN PRN 08/06/17 09/10/20 Sertraline HCl 100 mg PO DAILY 08/06/17 09/10/20 Trazodone HCl 100 mg PO DAILY 08/06/17 09/10/20 Acetaminophen [Tylenol Extra 2 tab PO PRN PRN 08/07/17 09/10/20 Strength] Ibuprofen 2 tab PO PRN PRN 08/07/17 09/10/20 Ondansetron Odt [Zofran Odt] 1 tab SL PRN PRN 08/07/17 09/10/20 Ketotifen Fumarate [Zaditor] 1 drops EACHEYE Q8H PRN #1 bottle 09/10/20 Oxycodone HCl/Acetaminophen 1 - 2 each PO Q6H PRN #7 tablet 09/10/20 [Percocet 5-325 mg Tablet] predniSONE [Deltasone] 40 mg PO DAILY #10 tablet 09/10/20 - Allergies Allergies/Adverse Reactions: Allergies Allergy/AdvReac Type Severity Reaction Status Date / Time Penicillins Allergy Hives Verified 09/10/20 08:04 Sulfa (Sulfonamide Allergy Hives Verified 09/10/20 08:04 Antibiotics) - Social History Does the pt smoke?: Yes Smoking Status: Current every day smoker Does the pt drink ETOH?: No Does the pt have substance abuse?: No - Immunizations Immunizations are current?: No Immunizations: TDAP >10years/unknown - POLST Patient has POLST: No PD ED PE NORMAL - Vitals Vital signs reviewed: Yes - General General: Alert and oriented X 3, No acute distress - HEENT HEENT: PERRL, EOMI, Moist mucous membranes, Other (Right eye is normal. Left eye has swelling of the upper and lower eyelids. Minimal erythema. Mild pain with extraocular movements. No tenderness over the temporal artery. No fluorescein uptake. No dendrites on exam. No foreign bodies visible.) - Neck Neck: Supple, no meningeal sign - Cardiac Cardiac: RRR - Respiratory Respiratory: No respiratory distress, Clear bilaterally - Derm Derm: Warm and dry - Neuro Neuro: Alert and oriented X 3 - Psych Psych: Normal mood, Normal affect - Free text exam Free text exam: Left upper and lower eyelids are swollen. No significant erythema. Extraocular movements are intact. Pupils are equal round reactive to light. Intraocular pressure is 19 in the left eye, 17 in the right eye. No uptake with fluorescein stain. No dendrites. Minimal conjunctival injection. No drainage. Results - Vitals Vitals: Vital Signs - 24 hr 09/10/20 09/10/20 08:01 10:32 Temperature 36.0 C L 36.3 C L Heart Rate 81 67 Respiratory 20 18 Rate Blood Pressure 174/71 H 152/64 H O2 Saturation 95 95 Oxygen O2 Source Room air - Labs Labs: Laboratory Tests 09/10/20 09/10/20 09/10/20 08:40 08:40 08:40 WBC 7.2 RBC 3.78 L Hgb 10.8 L Hct 34.3 L MCV 90.7 MCH 28.6 MCHC 31.5 L RDW 14.6 Plt Count 249 MPV 9.0 Neut # (Auto) 3.8 Lymph # (Auto) 2.2 [place] # (Auto) 0.7 Eos # (Auto) 0.4 Baso # (Auto) 0.0 Absolute Nucleated RBC 0.00 Nucleated RBC % 0.0 ESR 31 H Sodium 138 Potassium 4.1 Chloride 106 Carbon Dioxide 23 Anion Gap 9.0 BUN 20 Creatinine 1.0 Estimated GFR (MDRD) 55 L Glucose 116 H Calcium 8.9 C-Reactive Protein < 1.0 - Rads (name of study) CT orbit Radiology: Prelim report reviewed, EMP read contemporaneously, See rad report (No imaging explanation is found for the patient's presenting symptoms. No masses or abnormal enhancement can be seen. ) PD MEDICAL DECISION MAKING - ED course Complexity details: reviewed results, re-evaluated patient, considered differential, d/w patient ED course: 70-year-old female with eye pain of unclear etiology. Normal intraocular pressures. No evidence of orbital or preseptal cellulitis on imaging. Patient does seem to have a blepharitis and we will treat for this. No fluorescein uptake on the cornea. No dendrites. No rashes. No trauma. We will have her follow-up closely with ophthalmology for further care. Patient counseled regarding signs and symptoms for which I believe and urgent re-evaluation would be necessary. Patient with good understanding of and agreement to plan and is comfortable going home at this time This document was made in part using voice recognition software. While efforts are made to proofread this document, sound alike and grammatical errors may occur. No tenderness over the temporal artery Departure - Departure Disposition: 01 Home, Self Care Clinical Impression: Blepharitis Qualifiers: Blepharitis type: unspecified type Laterality: left Eyelid: both upper and lower Qualified Code(s): H01.00B - Unspecified blepharitis left eye, upper and lower eyelids Condition: Good Instructions: ED Inflammation Eyelid Follow-Up: Zayra Ambrose ARNP [Primary Care Provider] - Adrian Yeager MD [Provider Admit Priv/Credential] - Tomorrow Prescriptions: predniSONE [Deltasone] 40 mg PO DAILY #10 tablet Oxycodone HCl/Acetaminophen [Percocet 5-325 mg Tablet] 1 - 2 each PO Q6H PRN #7 tablet PRN Reason: pain Ketotifen Fumarate [Zaditor] 1 drops EACHEYE Q8H PRN #1 bottle PRN Reason: itching Comments: We will trial you on the Zaditor eyedrops and a small dose of steroids. Please see ophthalmology tomorrow. Return if you worsen. Do not drink alcohol or drive while on narcotic pain medicine. Note that many narcotic pain relievers also contain tylenol/acetaminophen. Please ensure that your total dose of acetaminophen from all sources does not exceed 3 grams (3000mg) per day. You may constipated on this medication, take a stool softener such as "Colace" twice a day while you are on it. Also recommend a fbxx-wmq-tnlcass laxative such as senna or MiraLAX any day that you do not have a bowel movement. If you received narcotic pain medication in the emergency department, do not drive or operate machinery for the next 24 hours. Discharge Date/Time: 09/10/20 10:48
[2020-09-10 08:55] LABS: BASOPHILS % (AUTO) 0.4 %; EOSINOPHILS # (AUTO) 0.4 10^3/uL (0.0-0.7); EOSINOPHILS % (AUTO) 5.7 %; HCT - HEMATOCRIT 34.3 % (37.0-47.0); HGB - HEMOGLOBIN 10.8 g/dL (12.0-16.0); LYMPHOCYTES # (AUTO) 2.2 10^3/uL (1.5-3.5); LYMPHOCYTES % (AUTO) 30.4 %; MEAN CORPUSCULAR HEMOGLOBIN 28.6 pg (27.0-31.0); MEAN CORPUSCULAR HGB CONC 31.5 g/dL (32.0-36.0); MEAN CORPUSCULAR VOLUME 90.7 fL (81.0-99.0); MONOCYTES # (AUTO) 0.7 10^3/uL (0.0-1.0); MONOCYTES % (AUTO) 9.6 %; NEUTROPHILS # (AUTO) 3.8 10^3/uL (1.5-6.6); NEUTROPHILS % (AUTO) 53.3 %; PLT - PLATELET COUNT 249 10^3/uL (130-450); RED BLOOD COUNT 3.78 10^6/uL (4.20-5.40); RED CELL DISTRIBUTION WIDTH 14.6 % (12.0-15.0); WHITE BLOOD COUNT 7.2 x10^3/uL (4.8-10.8)
[2020-09-10] MEDS ORDERED: IOPAMIDOL-300 100 ML VIAL ONE (09:03)
[2020-09-10 09:13] LABS: BUN - BLOOD UREA NITROGEN 20 mg/dL (6-20); CALCIUM 8.9 mg/dL (8.5-10.3); CARBON DIOXIDE - CO2 23 mmol/L (21-32); CHLORIDE 106 mmol/L (101-111); GFR - MDRD 55 (>89); GLUCOSE 116 mg/dL (70-100); POTASSIUM 4.1 mmol/L (3.5-5.0); SODIUM 138 mmol/L (135-145)
[2020-09-10 09:19] LABS: CRP - C-REACTIVE PROTEIN < 1.0 mg/dL (0-1.0)
[2020-09-10] MEDS ORDERED: IOPAMIDOL-300 100 ML VIAL IVP ONE (09:46)
--- NOTE | 2020-09-10 10:00 | CT Report ---
PROCEDURE: ORBITS W INDICATIONS: L eye pain CONTRAST: IV CONTRAST: Isovue 300 ml: 100 PO CONTRAST: *NO PO CONTRAST TECHNIQUE: After the administration of intravenous contrast, 3.0 mm axial images acquired through the orbits, wi th coronal reformatting. COMPARISON: Correlation is made with prior head CT, 06/04/2013 FINDINGS: Image quality: Excellent. Orbits: Globes are symmetrical. The optic nerves are normal in size and enhancement. No retrobulba r masses or fat abnormalities. The extra-ocular muscles are normal and symmetrical in appearance. L acrimal glands are normal. Optic chiasm is normal. Periorbital soft tissues are normal. Intracranial: The pituitary gland is normal, without sellar or suprasellar masses. Visualized cereb ral hemispheres, brainstem, and spinal cord appear normal. Bones and sinuses: Visualized calvarium and facial bones appear intact. Visualized sinuses and mast oids are clear. Moderate rightward nasal septal deviation is incidentally noted. IMPRESSION: No imaging explanation is found for the patient's presenting symptoms. No masses or abnormal enhancement can be seen. Reviewed by: Dejuan Chan MD on 09/10/2020 8:58 AM [facility] Approved by: Dejuan Chan MD on 09/10/2020 8:58 AM [facility] Station ID: [id number]
[2020-09-10 10:32] VITALS: BP 152/64
== END 2020-09-10 10:48 | disposition home or self-care (01) ==
LOC: ED 07:55
DX: H01.00B Unspecified blepharitis left eye, upper and lower eyelids (principal); I10 Essential (primary) hypertension; F17.200 Nicotine dependence, unspecified, uncomplicated
CPT/HCPCS: 36415; 70481; 80048; 85025; 85651; 86140; 99284; Q9967

== ENCOUNTER 2020-09-21 08:00 | Outpatient (CLI) | payer MEDICARE | END 2020-09-21 23:59 | disposition home or self-care (01) | LOC: LAB.S 08:00 | PROVIDERS: ATTEND Physician Assistant Medical | DX: N32.89 Other specified disorders of bladder (principal); Z79.899 Other long term (current) drug therapy | CPT/HCPCS: 87086 ==

== ENCOUNTER 2021-02-19 08:00 | Outpatient (CLI) | payer MEDICARE | END 2021-02-19 23:59 | disposition home or self-care (01) | LOC: LAB.S 08:00 | PROVIDERS: ATTEND Physician Assistant Medical | DX: B37.2 Candidiasis of skin and nail (principal) | CPT/HCPCS: 82962 ==

== ENCOUNTER 2021-08-01 08:00 | Outpatient (CLI) | payer MEDICARE ==
--- NOTE | 2021-08-01 16:32 | XRAY Report ---
PROCEDURE: Shoulder 3 View LT INDICATIONS: LEFT SHOULDER PAIN TECHNIQUE: 3 views of the shoulder were acquired. COMPARISON: 12/22/2010 FINDINGS: Bones: No acute fractures or dislocations. Moderate degenerative changes of the left acromioclavicul ar joint. Acromioclavicular and coracoclavicular intervals are maintained. No suspicious bony lesions . Visualized ribs appear intact. Soft tissues: No suspicious soft tissue calcifications. IMPRESSION: Left shoulder without acute fracture or malalignment. Mild progression of moderate left acromioclavicular osteoarthrosis. Reviewed by: Adonis Sanchez MD on 08/01/2021 4:30 PM PDT Approved by: Adonis Sanchez MD on 08/01/2021 4:30 PM PDT Station ID: [id number]
== END 2021-08-01 23:59 ==
LOC: DI.S 08:00
PROVIDERS: ATTEND Registered Nurse
DX: M19.012 Primary osteoarthritis, left shoulder (principal)

== ENCOUNTER 2021-10-30 09:06 | Outpatient (CLI) | payer MEDICARE ==
[2021-10-30 09:11] LABS: MUDS CUTOFF CONCENTRATIONS CUTOFF CONC BELOW:
[2021-10-30 14:37] LABS: AMPHETAMINE SCREEN,URINE NEGATIVE (NEGATIVE); BARBITURATE SCREEN,UR NEGATIVE (NEGATIVE); BENZODIAZEPINES SCREEN, URINE NEGATIVE (NEGATIVE); COCAINE SCREEN URINE NEGATIVE (NEGATIVE); METHADONE SCREEN, URINE NEGATIVE (NEGATIVE); METHAMPHETAMINES SCREEN, URINE NEGATIVE (NEGATIVE); OPIATE SCREEN, URINE NEGATIVE (NEGATIVE); OXYCODONE SCREEN, URINE NEGATIVE (NEGATIVE); PROPOXYPHENE SCREEN, URINE NEGATIVE (NEGATIVE); THC CANNABINOID SCREEN, URINE NEGATIVE (NEGATIVE); TRICYCLIC ANTIDEPRESSANT,URINE NEGATIVE (NEGATIVE)
== END 2021-10-30 09:07 | disposition home or self-care (01) ==
LOC: LAB.S 09:06
PROVIDERS: ATTEND Registered Nurse
DX: Z79.899 Other long term (current) drug therapy (principal)
CPT/HCPCS: 80306

== ENCOUNTER 2021-12-03 19:49 | Outpatient (CLI) | payer MEDICARE | END 2021-12-03 19:50 | disposition EMS.NT | LOC: EMS 19:49 | DX: Z03.89 Encounter for observation for other suspected diseases and conditions ruled out (principal) ==

== ENCOUNTER 2022-04-20 08:00 | Outpatient (CLI) | payer MEDICARE ==
--- NOTE | 2022-04-20 15:13 | XRAY Report ---
PROCEDURE: Knee 3 View RT INDICATIONS: RIGHT KNEE SPRAIN TECHNIQUE: 3 views of the right knee(s) were acquired. COMPARISON: 12/20/2019 FINDINGS: Bones: No fractures or dislocations. No suspicious bony lesions. There is moderate to severe medial femorotibial joint space narrowing, with associated degenerative c hange with subchondral sclerosis and osteophyte formation. On the sunrise view, there is mild osteoph yte formation seen along the margins of the patella. Soft tissues: No there is a small joint effusion. No suspicious soft tissue calcifications. IMPRESSION: Focal medial femorotibial joint space narrowing seen, with associated remodeling change. The degenerative change appears progressed compared to 2020. If it would be helpful for clinical management decision making, please consider a dedicated, schedule d knee MRI for further evaluation (assuming that there is no contraindication). Reviewed by: Dejuan Chan MD on 04/20/2022 2:11 PM [facility] Approved by: Dejuan Chan MD on 04/20/2022 2:11 PM [facility] Station ID: [id number]
== END 2022-04-20 08:01 | disposition home or self-care (01) ==
LOC: DI.S 08:00
PROVIDERS: ATTEND Emergency Medicine
DX: M17.11 Unilateral primary osteoarthritis, right knee (principal)

== ENCOUNTER 2022-07-01 16:32 | Outpatient (CLI) | payer MEDICARE ==
--- NOTE | 2022-07-01 13:29 | XRAY Report ---
PROCEDURE: Knee 2 View RT INDICATIONS: RIGHT KNEE PAIN TECHNIQUE: 2 frontal views of the right knee single frontal view of the left knee COMPARISON: Right knee radiographs 04/20/2022 FINDINGS: Bones: Severe degenerative changes of the right knee redemonstrated, better evaluated on the prior e xam. On the current study there is severe joint space loss of the medial compartment, moderate joint space loss of the lateral compartment, spurring is present of both compartments. Left knee arthroplasty. Soft: No suspicious soft tissue calcifications. IMPRESSION: Severe right knee degenerative changes as before Reviewed by: Michael Castro MD on 07/01/2022 1:27 PM PST Approved by: Michael Castro MD on 07/01/2022 1:27 PM PST Station ID: [id number]
== END 2022-07-01 16:33 | disposition home or self-care (01) ==
LOC: DI.WOS 16:32
PROVIDERS: ATTEND Physician Assistant Surgical
DX: M17.11 Unilateral primary osteoarthritis, right knee (principal)

== ENCOUNTER 2023-03-27 08:27 | Emergency (ER) | payer MEDICARE ==
--- NOTE | 2023-03-27 08:44 | ED Physician Documentation ---
PD HPI LOWER EXT INJURY - Stated complaint Stated Complaint: RT KNEE INJ - Chief complaint Chief Complaint: Trauma Ext - History obtained from History obtained from: Patient - History of Present Illness PD HPI LOW EXT INJURY LOCATION: Right, Knee Type of injury: Fall Timing - onset: How many weeks ago (2) Timing - duration: Weeks (2) Timing - details: Abrupt onset, Still present (has had knee pain due to arthritis and "needs a knee replacement". Is supposed to see ortho 04/07 for joint injection. Had fall onto knee while cleaning bathtub 2 weeks ago and knee has been hurting much more than baseline since, even worse the past few days.) Worsened by: Moving, Palpating (anterior patella area.) Associated symptoms: Swelling. No: Weakness, Numbness Contributing factors: Anticoagulated. 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 : None HEENT: None Psych: Depression, Anxiety Musculoskeletal: Osteoarthritis, Chronic back pain Derm: None - Past Surgical History Past Surgical History: Yes General: Cholecystectomy Ortho: Knee replacement - Present Medications Home Medications: Ambulatory Orders Medication Instructions Recorded Confirmed Losartan [Cozaar] 50 mg PO DAILY 02/03/16 09/10/20 OLANZapine [Olanzapine] 5 mg PO DAILY 02/03/16 09/10/20 lamoTRIgine [LaMICtal] 200 mg PO BID 02/03/16 09/10/20 raNITIdine [Zantac] 150 mg PO BID #60 tablet 07/07/17 09/10/20 Hyoscyamine [Levsin] 0.125 mg PO PRN PRN 08/06/17 09/10/20 Sertraline HCl 100 mg PO DAILY 08/06/17 09/10/20 Trazodone HCl 100 mg PO DAILY 08/06/17 09/10/20 Acetaminophen [Tylenol Extra 2 tab PO PRN PRN 08/07/17 09/10/20 Strength] Ibuprofen 2 tab PO PRN PRN 08/07/17 09/10/20 Ondansetron Odt [Zofran Odt] 1 tab SL PRN PRN 08/07/17 09/10/20 Ketotifen Fumarate [Zaditor] 1 drops EACHEYE Q8H PRN #1 bottle 09/10/20 Oxycodone HCl/Acetaminophen 1 - 2 each PO Q6H PRN #7 tablet 09/10/20 [Percocet 5-325 mg Tablet] predniSONE [Deltasone] 40 mg PO DAILY #10 tablet 09/10/20 Oxycodone HCl/Acetaminophen 1 each PO TID PRN #20 tablet 03/27/23 [Percocet 7.5-325 mg Tablet] dexAMETHasone [Decadron] 4 mg PO DAILY #5 tablet 03/27/23 - Allergies Allergies/Adverse Reactions: Allergies Allergy/AdvReac Type Severity Reaction Status Date / Time Penicillins Allergy Hives Verified 03/27/23 08:37 Sulfa (Sulfonamide Allergy Hives Verified 03/27/23 08:37 Antibiotics) - Social History Does the pt smoke?: No Smoking Status: Never smoker Does the pt drink ETOH?: No Does the pt have substance abuse?: No - Immunizations Immunizations are current?: Yes Immunizations: TDAP >10years/unknown - POLST Patient has POLST: No PD ED PE NORMAL - Vitals Vital signs reviewed: Yes - General General: Alert and oriented X 3, Well developed/nourished - Derm Derm: Normal color, Warm and dry, No rash - Extremities Extremities: Other (tender anterior right knee. Mild swelling/effusion of the knee. No prepatellar edema. Popliteal area and calf without tenderness. Stress testing of knee without notable laxity nor pain. Impaction hurts. ) - Neuro Neuro: No motor deficit, No sensory deficit Results - Vitals Vitals: Oxygen O2 Source Room air - Rads (name of study) knee xray Relevant Findings:: Prelim report reviewed, EMP independent interpretation of test (Small joint effusion. ) PD Medical Decision Making - ED course Complexity details: reviewed results (xray reviewed myself. ), considered differential (has prior knee arthritis and pain, then fell onto it wiht worse pain. Xray obtained without fracture. Can give anti-inflammatories for acute injury component and tylenol for pain. Opios pain med short term. ), d/w patient Departure - Departure Disposition: 01 Home, Self Care Clinical Impression: Knee pain, right, History of recent fall Condition: Stable Record reviewed to determine appropriate education?: Yes Follow-Up: Zayra Ambrose ARNP [Primary Care Provider] - Prescriptions: dexAMETHasone [Decadron] 4 mg PO DAILY #5 tablet Oxycodone HCl/Acetaminophen [Percocet 7.5-325 mg Tablet] 1 each PO TID PRN #20 tablet PRN Reason: Pain 5-7 Comments: Your x-ray appears normal insofar as no acute fractures. There is a significant arthritis you already know. We can try combination of some anti-inflammatories with Decadron daily for several days as a steroid anti-inflammatory. To that add Tylenol 500 to 650 mg every 4-6 hours if needed for mild pain or the Percocet 7.5 mg every 3 times a day if needed for worse pain. This likely is a slightly higher dose than he had been on so be aware of the milligram difference. Hopefully this will help a little bit better. Follow-up with orthopedist as planned on the . Return if needed. I sent your prescriptions to the [facility] pharmacy here in [place]. I am prescribing a short course of narcotic pain medication for you. These are potentially dangerous and addictive medications that should be used carefully. These medications may constipate you. Take an prnn-owr-ceshgqa stool softener such as docusate twice daily with plenty of water while taking these medications. If you go 24 hours without a bowel movement, take ybtb-dgw-blymrxn MiraLAX, per package instructions. Do not drink or drive while taking these medications. If you received narcotic or sedating medications while in the emergency department do not drive for 24 hours. Store this medication in a safe, secure place and out of reach of children. It is a violation of federal law to give or sell this medication to another person or to use in a manner other than prescribed. The ED will not refill narcotic prescriptions, including prescriptions lost or stolen. You can dispose of unwanted medications at the [facility]'s office or at several pharmacies such as [facility]. Forms: PCP List Discharge Date/Time: 03/27/23 11:16
[2023-03-27] MEDS ORDERED: oxyCODONE 5 MG TABLET PO STA (09:39)
[2023-03-27] MEDS ORDERED: dexAMETHasone 4 MG TABLET PO STA (09:39)
--- NOTE | 2023-03-27 10:05 | XRAY Report ---
PROCEDURE: Knee 3 View RT INDICATIONS: arthritis severe; fell to knee 2 days ago TECHNIQUE: 3 views of the knee(s) were acquired. COMPARISON: 07/01/2022 FINDINGS: Bones: Moderate to severe degenerative changes, particularly the medial compartment. No discrete frac ture line is identified. No dislocation. Soft tissues: Small knee joint effusion. Patellar enthesopathy. Prepatellar soft tissue swelling. IMPRESSION: No acute radiographic abnormality. However, there are moderate to severe degenerative changes and a s mall joint effusion. If there is high concern for further derangement, consider MRI evaluation. Reviewed by: Chapo Chow MD on 03/27/2023 10:04 AM PST Approved by: Chapo Chow MD on 03/27/2023 10:04 AM PST Station ID: [id number]
[2023-03-27] MEDS ORDERED: KETOROLAC 30 MG/ML VIAL IM STA (10:26)
[2023-03-27] MEDS ORDERED: HYDROmorphone 1 MG/ML CARPUJECT IM STA (10:26)
[2023-03-27 11:22] VITALS: BP 151/74; O2SAT 99
== END 2023-03-27 11:16 | disposition home or self-care (01) ==
LOC: ED 08:27
DX: M25.561 Pain in right knee (principal); W19.XXXA Unspecified fall, initial encounter; E11.9 Type 2 diabetes mellitus without complications; I10 Essential (primary) hypertension; Z96.651 Presence of right artificial knee joint
CPT/HCPCS: 73562; 96372; 99283; 99284; A9270; J1170; J8540

== ENCOUNTER 2023-05-18 09:07 | Emergency (ER) | payer MEDICARE ==
--- NOTE | 2023-05-18 09:57 | XRAY Report ---
PROCEDURE: Knee 4+V RT INDICATIONS: Trauma TECHNIQUE: 4 views of the knee(s) were acquired. COMPARISON: 03/27/2023 FINDINGS: Bones: No displaced fracture or dislocation. Similar moderate to severe arthrosis, with osteophytes a nd joint space narrowing most significant in the medial and patellofemoral compartments. There may be intra-articular loose ossified bodies. Patellar enthesopathy. Soft tissues: Joint effusion persists. There may also be soft tissue swelling the prepatellar region. There are vascular calcifications. IMPRESSION: Advanced degenerative changes, particularly in the medial and patellofemoral compartments. No acute r adiographic abnormality. There may be intra-articular loose bodies. If there is high concern for further derangement, consider MRI evaluation. Reviewed by: Chapo Chow MD on 05/18/2023 9:55 AM PST Approved by: Chapo Chow MD on 05/18/2023 9:55 AM PST Station ID: [id number]
--- NOTE | 2023-05-18 11:23 | ED Physician Documentation ---
PD HPI LOWER EXT INJURY - Stated complaint Stated Complaint: RT KNEE PX - Chief complaint Chief Complaint: Ext Problem - History obtained from History obtained from: Patient - History of Present Illness PD HPI LOW EXT INJURY LOCATION: Right, Knee - Additional information Additional information: 72-year-old female presents with right knee pain. The patient has pain intermittently on the right knee, but states it has been worse the last few days. She denies any known injuries, denies any increase in activity, no twisting or falls. She denies any redness, and no swelling. The pain keeps her awake at nighttime however and it is quite uncomfortable to try to walk. She has had similar pain in the past though it has never been quite as bad. She is not a fever or chills, no other injuries or pain. She is taking quite a bit of Tylenol because it has not been effective for her, she is taking up to 5 tablets at a time but no more than 8 or so tablets in a day. She states she has been told she cannot take ibuprofen due to heart issues. Review of Systems Constitutional: reports: Reviewed and negative Cardiac: reports: Reviewed and negative Respiratory: reports: Reviewed and negative GI: reports: Reviewed and negative : reports: Reviewed and negative Skin: reports: Reviewed and negative Musculoskeletal: reports: Joint pain. 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 : None HEENT: None Psych: Depression, Anxiety Musculoskeletal: Osteoarthritis, Chronic back pain Derm: None - Past Surgical History Past Surgical History: Yes General: Cholecystectomy Ortho: Knee replacement - Present Medications Home Medications: Ambulatory Orders Medication Instructions Recorded Confirmed Losartan [Cozaar] 50 mg PO DAILY 02/03/16 09/10/20 OLANZapine [Olanzapine] 5 mg PO DAILY 02/03/16 09/10/20 lamoTRIgine [LaMICtal] 200 mg PO BID 02/03/16 09/10/20 raNITIdine [Zantac] 150 mg PO BID #60 tablet 07/07/17 09/10/20 Hyoscyamine [Levsin] 0.125 mg PO PRN PRN 08/06/17 09/10/20 Sertraline HCl 100 mg PO DAILY 08/06/17 09/10/20 Trazodone HCl 100 mg PO DAILY 08/06/17 09/10/20 Acetaminophen [Tylenol Extra 2 tab PO PRN PRN 08/07/17 09/10/20 Strength] Ibuprofen 2 tab PO PRN PRN 08/07/17 09/10/20 Ondansetron Odt [Zofran Odt] 1 tab SL PRN PRN 08/07/17 09/10/20 Ketotifen Fumarate [Zaditor] 1 drops EACHEYE Q8H PRN #1 bottle 09/10/20 Oxycodone HCl/Acetaminophen 1 - 2 each PO Q6H PRN #7 tablet 09/10/20 [Percocet 5-325 mg Tablet] predniSONE [Deltasone] 40 mg PO DAILY #10 tablet 09/10/20 Oxycodone HCl/Acetaminophen 1 each PO TID PRN #20 tablet 03/27/23 [Percocet 7.5-325 mg Tablet] dexAMETHasone [Decadron] 4 mg PO DAILY #5 tablet 03/27/23 Ibuprofen [Motrin] 400 mg PO BID PRN #20 tablet 05/18/23 Oxycodone HCl/Acetaminophen 1 - 2 each PO Q6H PRN #14 tablet 05/18/23 [Percocet 5-325 mg Tablet] - Allergies Allergies/Adverse Reactions: Allergies Allergy/AdvReac Type Severity Reaction Status Date / Time Penicillins Allergy Hives Verified 05/18/23 09:23 Sulfa (Sulfonamide Allergy Hives Verified 05/18/23 09:23 Antibiotics) - Social History Does the pt smoke?: No Smoking Status: Never smoker Does the pt drink ETOH?: No Does the pt have substance abuse?: No - Immunizations Immunizations are current?: Yes Immunizations: TDAP >10years/unknown - POLST Patient has POLST: No PD ED PE NORMAL - Vitals Vital signs reviewed: Yes - General General: Alert and oriented X 3, No acute distress, Well developed/nourished - HEENT HEENT: Atraumatic, Moist mucous membranes - Cardiac Cardiac: RRR, No murmur - Respiratory Respiratory: No respiratory distress, Clear bilaterally - Derm Derm: Normal color, Warm and dry, No rash - Extremities Extremities: No deformity, No edema, No calf tenderness / cord, Other (Mild generalized right knee tenderness, primarily on the medial joint line.) - Neuro Neuro: Alert and oriented X 3 Eye Opening: Spontaneous Motor: Obeys Commands Verbal: Oriented GCS Score: 15 Results - Vitals Vitals: Vital Signs - 24 hr 05/18/23 05/18/23 09:24 11:38 Temperature 36.4 C L Heart Rate 72 71 Respiratory 18 16 Rate Blood Pressure 175/72 H 183/81 H O2 Saturation 95 96 Oxygen O2 Source Room air - Rads (name of study) No standard instances Relevant Findings:: Final report received PD Medical Decision Making - ED course Complexity details: reviewed results, considered differential, d/w patient ED course: 71-year-old female presented with right knee pain as described in HPI. She denies any acute injuries and there are no signs of infection on physical exam today. We did obtain x-ray which shows severe degenerative changes, no other acute findings. I discussed this with patient, she has had a left knee replacement in the past and I discussed with patient that she may need the right knee done as well. She states she is aware. She is going to follow-up in the clinic next week and request a steroid injection but in the meantime we will give her a short course of pain medication to use only as needed, I think she can do 3 to 5 days of ibuprofen twice a day as well to reduce the pain and limit narcotic use. No additional testing or admission to the hospital is indicated at this time and patient was discharged home in stable condition. Departure - Departure Disposition: 01 Home, Self Care Clinical Impression: Right knee pain Qualifiers: Chronicity: acute Qualified Code(s): M25.561 - Pain in right knee Condition: Good Instructions: Knee Osteoarthritis Prescriptions: Ibuprofen [Motrin] 400 mg PO BID PRN #20 tablet PRN Reason: Pain 1-4 Oxycodone HCl/Acetaminophen [Percocet 5-325 mg Tablet] 1 - 2 each PO Q6H PRN #14 tablet PRN Reason: pain Comments: X-ray today shows arthritis and chronic degenerative changes. Please continue cool compress, you can start ibuprofen twice a day for the next several days, and I have given you Percocet help with your pain. Use this sparingly and only as needed. Please follow-up with your orthopedic surgeon as planned, you been benefit from steroid injection or MRI. Forms: PCP List Discharge Date/Time: 05/18/23 11:40
[2023-05-18 11:40] VITALS: BP 183/81; O2SAT 96
== END 2023-05-18 11:40 | disposition home or self-care (01) ==
LOC: ED 09:07
DX: M25.561 Pain in right knee (principal); I10 Essential (primary) hypertension
CPT/HCPCS: 99283

== ENCOUNTER 2023-05-23 08:00 | Outpatient (CLI) | payer MEDICARE ==
--- NOTE | 2023-05-23 15:13 | XRAY Report ---
PROCEDURE: Chest 2V INDICATIONS: COUGH/CHEST CONGESTION TECHNIQUE: 2 views of the chest were acquired. COMPARISON: 04/03/2014 two-view chest. FINDINGS: Surgical changes and devices: None. Lungs and pleura: No pleural effusions or pneumothorax. Lungs are slightly edematous. Mediastinum: Mediastinal contours appear normal. Heart size is globally enlarged. Bones and chest wall: No suspicious bony lesions. Overlying soft tissues appear unremarkable. IMPRESSION: Chronic CHF pattern without pneumonia. Minimal pulmonary edema when body habitus is taken into accoun t. Reviewed by: Luis Burt MD on 05/23/2023 3:12 PM PST Approved by: Luis Burt MD on 05/23/2023 3:12 PM PST Station ID: [id number]
== END 2023-05-23 23:59 | disposition home or self-care (01) ==
LOC: DI.S 08:00
PROVIDERS: ATTEND Physician Assistant Medical
DX: I50.9 Heart failure, unspecified (principal)

== ENCOUNTER 2023-05-23 08:00 | Outpatient (CLI) | payer MEDICARE | END 2023-05-23 08:01 | disposition home or self-care (01) | LOC: LAB.S 08:00 | PROVIDERS: ATTEND Physician Assistant Medical | DX: U07.1 COVID-19 (principal) ==

== ENCOUNTER 2023-08-25 13:08 | Outpatient (CLI) | payer MEDICARE | END 2023-08-25 23:59 | disposition critical access hospital (66) | LOC: EMS 13:08 | DX: R19.5 Other fecal abnormalities (principal); R19.7 Diarrhea, unspecified; R42 Dizziness and giddiness; M54.50 Low back pain, unspecified; R53.1 Weakness; R00.0 Tachycardia, unspecified; Z79.01 Long term (current) use of anticoagulants; Z59.12 Inadequate housing utilities; Z59.89 Other problems related to housing and economic circumstances | CPT/HCPCS: A0425; A0427 ==

== ENCOUNTER 2023-08-25 13:35 | Emergency (ER) | payer MEDICARE ==
[2023-08-25] MEDS: PANTOPRAZOLE 40 MG VIAL IV STA (13:52)
[2023-08-25] MEDS ORDERED: PANTOPRAZOLE 40 MG VIAL ONE (13:54)
[2023-08-25] MEDS: SODIUM CHLORIDE 0.9% 1,000 ML IV STA (13:54)
[2023-08-25 14:12] LABS: BASOPHILS % (AUTO) 0.1 %; HCT - HEMATOCRIT 22.7 % (37.0-47.0); LYMPHOCYTES # (AUTO) 3.1 10^3/uL (1.5-3.5); MEAN CORPUSCULAR HEMOGLOBIN 28.6 pg (27.0-31.0); MEAN CORPUSCULAR VOLUME 95.4 fL (81.0-99.0); MEAN PLATELET VOLUME 10.6 fL (7.9-10.8); NEUTROPHILS # (AUTO) 10.6 10^3/uL (1.5-6.6); NEUTROPHILS % (AUTO) 71.4 %; PLT - PLATELET COUNT 307 10^3/uL (130-450); RED BLOOD COUNT 2.38 10^6/uL (4.20-5.40); WHITE BLOOD COUNT 14.9 x10^3/uL (4.8-10.8)
[2023-08-25 14:14] LABS: INR 1.3 (0.8-1.2); PT - PROTHROMBIN TIME 14.1 secs (9.9-12.6)
[2023-08-25 14:18] LABS: HGB - HEMOGLOBIN 6.8 g/dL (12.0-16.0)
--- NOTE | 2023-08-25 14:18 | ED Physician Documentation ---
PD HPI GI BLEED - Stated complaint Stated Complaint: DIARRHEA - Chief complaint Chief Complaint: Abd Pain - History obtained from History obtained from: Patient, EMS - Additional information Additional information: Patient is a 73-year-old female with a history of coronary artery disease and prior MIs on Plavix (reports stents placed 3-4 years ago at [facility]) presenting for evaluation of diarrhea and generalized weakness. Patient states she started feeling unwell 2 days ago with having nausea. Since yesterday she has had multiple loose stools of dark liquid. She was too weak to get up out of bed when EMS was called. She has not had any falls. EMS noted that the residence Was somewhat of a hoarder's home Did not seem to have electricity. EMS is filing an APS report. Patient and spouse are having meals delivered and there were 4 fresh meals that were just dropped off this morning. Patient does report using Aleve pretty regularly due to chronic knee pain. Denies known history of ulcers. Denies history of alcohol abuse.EMS noted that she was hypotensive and tachycardic and did start an IV and administered IV fluids. Review of Systems Constitutional: denies: Fever Cardiac: denies: Chest pain / pressure Respiratory: denies: Dyspnea GI: reports: Nausea, Bloody / black stool. 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 : None HEENT: None Psych: Depression, Anxiety Musculoskeletal: Osteoarthritis, Chronic back pain Derm: None - Past Surgical History Past Surgical History: Yes General: Cholecystectomy Ortho: Knee replacement - Present Medications Home Medications: Ambulatory Orders Medication Instructions Recorded Confirmed Losartan [Cozaar] 50 mg PO DAILY 02/03/16 09/10/20 OLANZapine [Olanzapine] 5 mg PO DAILY 02/03/16 09/10/20 lamoTRIgine [LaMICtal] 200 mg PO BID 02/03/16 09/10/20 raNITIdine [Zantac] 150 mg PO BID #60 tablet 07/07/17 09/10/20 Hyoscyamine [Levsin] 0.125 mg PO PRN PRN 08/06/17 09/10/20 Sertraline HCl 100 mg PO DAILY 08/06/17 09/10/20 Trazodone HCl 100 mg PO DAILY 08/06/17 09/10/20 Acetaminophen [Tylenol Extra 2 tab PO PRN PRN 08/07/17 09/10/20 Strength] Ibuprofen 2 tab PO PRN PRN 08/07/17 09/10/20 Ondansetron Odt [Zofran Odt] 1 tab SL PRN PRN 08/07/17 09/10/20 Ketotifen Fumarate [Zaditor] 1 drops EACHEYE Q8H PRN #1 bottle 09/10/20 Oxycodone HCl/Acetaminophen 1 - 2 each PO Q6H PRN #7 tablet 09/10/20 [Percocet 5-325 mg Tablet] predniSONE [Deltasone] 40 mg PO DAILY #10 tablet 09/10/20 Oxycodone HCl/Acetaminophen 1 each PO TID PRN #20 tablet 03/27/23 [Percocet 7.5-325 mg Tablet] dexAMETHasone [Decadron] 4 mg PO DAILY #5 tablet 03/27/23 Ibuprofen [Motrin] 400 mg PO BID PRN #20 tablet 05/18/23 Oxycodone HCl/Acetaminophen 1 - 2 each PO Q6H PRN #14 tablet 05/18/23 [Percocet 5-325 mg Tablet] - Allergies Allergies/Adverse Reactions: Allergies Allergy/AdvReac Type Severity Reaction Status Date / Time Penicillins Allergy Hives Verified 08/25/23 13:44 Sulfa (Sulfonamide Allergy Hives Verified 08/25/23 13:44 Antibiotics) - Social History Does the pt smoke?: No Smoking Status: Never smoker Does the pt drink ETOH?: No Does the pt have substance abuse?: No - Immunizations Immunizations are current?: Yes Immunizations: TDAP >10years/unknown - POLST Patient has POLST: No PD ED PE NORMAL - General General: Alert and oriented X 3, Well developed/nourished, Other (Pt covered in dried black stool) - HEENT HEENT: Atraumatic - Neck Neck: Supple, no meningeal sign - Cardiac Cardiac: Other (Tachycardic, irregularly irregular) - Respiratory Respiratory: No respiratory distress, Clear bilaterally - Abdomen Abdomen: Normal bowel sounds, Soft, Non tender, Non distended - Rectal Rectal: Other (Chaperoned by Saniya MELOL, melena) - Neuro Neuro: Alert and oriented X 3, No motor deficit, Normal speech Results - Vitals Vitals: Vital Signs - 24 hr 08/25/23 08/25/23 08/25/23 13:44 13:46 15:25 Temperature 36.4 C L 36.4 C L 36.9 C Heart Rate 116 H 116 H Heart Rate [136 136 H ] Respiratory 18 18 24 Rate Blood Pressure 95/79 95/79 Blood Pressure 140/64 H [Left Brachial artery] O2 Saturation 92 92 94 08/25/23 08/25/23 08/25/23 15:30 15:42 15:46 Temperature 36.8 C 36.8 C 36.8 C Heart Rate 120 H Heart Rate [136 140 H 120 H ] Respiratory 24 22 22 Rate Blood Pressure 144/86 H Blood Pressure 128/60 144/86 H [Left Brachial artery] O2 Saturation 94 94 94 08/25/23 08/25/23 16:37 17:33 Temperature 36.7 C Heart Rate 140 H Heart Rate [136 116 H ] Respiratory 30 H 23 Rate Blood Pressure 97/68 Blood Pressure 148/77 H [Left Brachial artery] O2 Saturation 100 98 Oxygen O2 Source Room air - EKG (time done) 1430 EKG releavant findings:: EKG personally interpreted by author of this note. Relevant findings are: Rate 129, atrial fibrillation, no STEMI, QTc 485 - Labs Labs: Microbiology 08/25/23 14:12 Occult Blood - Final Stool Laboratory Tests 08/25/23 08/25/23 08/25/23 13:59 13:59 13:59 WBC RBC Hgb Hct MCV MCH MCHC RDW Plt Count MPV Neut # (Auto) Lymph # (Auto) Wells # (Auto) Eos # (Auto) Baso # (Auto) Absolute Nucleated RBC Nucleated RBC % PT 14.1 H INR 1.3 H Sodium 137 Potassium 3.4 L Chloride 111 Carbon Dioxide 14 L Anion Gap 12.0 BUN 104 H* Creatinine 1.3 Estimated GFR (MDRD) 40 L Glucose 143 H Calcium 8.0 L Total Bilirubin 0.3 AST 10 ALT 11 Alkaline Phosphatase 58 Troponin I High Sens Total Protein 4.9 L Albumin 3.1 L Globulin 1.8 L Albumin/Globulin Ratio 1.7 Lipase < 10 L Blood Type O POSITIVE Antibody Screen NEGATIVE Crossmatch IS Only See Detail 08/25/23 08/25/23 14:02 14:02 WBC 14.9 H RBC 2.38 L Hgb 6.8 L* Hct 22.7 L MCV 95.4 MCH 28.6 MCHC 30.0 L RDW 15.0 Plt Count 307 MPV 10.6 Neut # (Auto) 10.6 H Lymph # (Auto) 3.1 Wells # (Auto) 1.0 Eos # (Auto) 0.0 Baso # (Auto) 0.0 Absolute Nucleated RBC 0.00 Nucleated RBC % 0.0 PT INR Sodium Potassium Chloride Carbon Dioxide Anion Gap BUN Creatinine Estimated GFR (MDRD) Glucose Calcium Total Bilirubin AST ALT Alkaline Phosphatase Troponin I High Sens 23.8 H* Total Protein Albumin Globulin Albumin/Globulin Ratio Lipase Blood Type Antibody Screen Crossmatch IS Only PD Medical Decision Making - ED course Complexity details: reviewed results, re-evaluated patient, d/w patient, d/w family ED course: Patient is a 73-year-old female with a history of Coronary artery disease On Plavix presenting for evaluation of generalized weakness and a symptoms of melena since at least yesterday. She was noted to be hypotensive and tachycardic. EKG demonstrates that she is in new onset atrial fibrillation. Blood pressure did respond to fluids. She is caked in dried melena.She has not taken her Plavix today. CBC, chemistries were obtained and reviewed. Hemoglobin is significant at 6.8. Patient did consent for blood transfusion and 2 units were ordered. Patient admits to using Aleve recently for knee pain and therefore I did give her Protonix as I am concerned this is likely from an upper GI source. Discussed the case with on-call general surgeon, Dr. Vela as well as admitting hospitalist, Dr. Gooden. JUSTINE Pereyra was also involved in consulting on patient and all 3 did evaluate the patient in the emergency department. Based on the fact that she is morbidly obese, has a history of coronary artery disease, has new onset atrial fibrillation and is having an active GI bleed they are concerned that she is likely too medically complex for critical access hospital and are requesting transfer to facility that is a higher level of care. Dr. Vela did request for a troponin which we obtained which is slightly elevated at 23.8 which is likely related to demand from anemia related to blood loss as well as her tachycardia. Patient denies having chest pain. Vital signs are improving with fluids and blood. She understands the need for transfer.Patient is signed out at shift change pending transfer. 1646 - Hospitalist, MACHINE FILLER, general surgery have all evaluated the patient and after discussion together feel that patient is too complex for case to be handled at our critical access hospital and recommend transfer to a larger facility that has cardiology and rpg programmer available. 1800 - Neighbor is at bedside. Patient aware of need for transfer. - Critical Care Time(min): 42 Departure - Departure Disposition: 02 Transfer Acute Care Hosp Clinical Impression: GI bleed, New onset atrial fibrillation, Acute anemia, Melena Condition: Critical Forms: PCP List
[2023-08-25 15:00] LABS: ALBUMIN 3.1 g/dL (3.2-5.5); ALBUMIN/GLOBULIN RATIO 1.7 (1.0-2.2); ALKALINE PHOSPHATASE 58 IU/L (42-121); ALT ALANINE AMINOTRANSFERASE 11 IU/L (10-60); AST ASPARTATE AMINOTRANSFERASE 10 IU/L (10-42); BILIRUBIN,TOTAL 0.3 mg/dL (0.2-1.0); BUN - BLOOD UREA NITROGEN 104 mg/dL (6-20); CARBON DIOXIDE - CO2 14 mmol/L (21-32); CHLORIDE 111 mmol/L (101-111); CREATININE 1.3 mg/dL (0.6-1.3); GFR - MDRD 40 (>89); GLUCOSE 143 mg/dL (74-104); LIPASE < 10 U/L (11-82); POTASSIUM 3.4 mmol/L (3.5-4.5); SODIUM 137 mmol/L (135-145); TOTAL PROTEIN 4.9 g/dL (6.4-8.9)
--- NOTE | 2023-08-25 16:40 | CONSULTATION NOTE ---
Referring Provider Name of Referring Provider:: ED (Dr. Knutson) Consult Date: 08/25/23 (GI bleed) Chief Complaint - Chief Complaint Chief Complaint: gi bleed History of Present Illness - Admitted From Admitted From:: ED - History Obtained From Records Reviewed: yes History obtained from: patient, chart, ED provider Exam Limitations: patient's agitation - History of Present Illness HPI Comment/Other: Patient reports that she's been having dark stools and having some nausea for "a while" and was too weak to get up today, prompting her to call EMS. On further questioning her symptoms have been going on for at least two weeks but less than one month. She has not been taking any medication for heartburn and has been "chewing some medication and I think that's made my stomach hurt." She reported taking Aleve for knee pain on a daily basis to the ED provider. Patient has a history of cardiac stents and is on plavix. She is also found to be in new atrial fibrillation at the time of presentation. She cannot confirm or deny chest pain, but does feel short of breath. She tells me, "I feel like I'm going to ," several times during my visit with her and she appears acutely anxious. History - Past Medical History Cardiovascular: reports: Hypertension, High cholesterol, [place], Atrial fibrillation Respiratory: reports: COPD Neuro: reports: None, Migraines Endocrine/Autoimmune: reports: Type 2 diabetes GI: reports: GERD LAYOUT ARTIST: reports: None : reports: None HEENT: reports: None Psych: reports: Depression, Anxiety Musculoskeletal: reports: Osteoarthritis, Chronic back pain Derm: reports: None MRSA Hx?: No - Past Surgical History General: reports: Cholecystectomy Ortho: reports: Knee replacement Other past surgical history: last EGD/CE in 2018. Found to have diverticulosis, no gastritis or PUD at that time. - Family & Social History Living arrangement: At home (EMS reports unsanitary/hoarding condition in home without electricity) - POLST Patient has POLST: No Meds/Allgy - Home Medications Home Medications: Ambulatory Orders Medication Instructions Recorded Confirmed Losartan [Cozaar] 50 mg PO DAILY 02/03/16 09/10/20 OLANZapine [Olanzapine] 5 mg PO DAILY 02/03/16 09/10/20 lamoTRIgine [LaMICtal] 200 mg PO BID 02/03/16 09/10/20 raNITIdine [Zantac] 150 mg PO BID #60 tablet 07/07/17 09/10/20 Hyoscyamine [Levsin] 0.125 mg PO PRN PRN 08/06/17 09/10/20 Sertraline HCl 100 mg PO DAILY 08/06/17 09/10/20 Trazodone HCl 100 mg PO DAILY 08/06/17 09/10/20 Acetaminophen [Tylenol Extra 2 tab PO PRN PRN 08/07/17 09/10/20 Strength] Ibuprofen 2 tab PO PRN PRN 08/07/17 09/10/20 Ondansetron Odt [Zofran Odt] 1 tab SL PRN PRN 08/07/17 09/10/20 Ketotifen Fumarate [Zaditor] 1 drops EACHEYE Q8H PRN #1 bottle 09/10/20 Oxycodone HCl/Acetaminophen 1 - 2 each PO Q6H PRN #7 tablet 09/10/20 [Percocet 5-325 mg Tablet] predniSONE [Deltasone] 40 mg PO DAILY #10 tablet 09/10/20 Oxycodone HCl/Acetaminophen 1 each PO TID PRN #20 tablet 03/27/23 [Percocet 7.5-325 mg Tablet] dexAMETHasone [Decadron] 4 mg PO DAILY #5 tablet 03/27/23 Ibuprofen [Motrin] 400 mg PO BID PRN #20 tablet 05/18/23 Oxycodone HCl/Acetaminophen 1 - 2 each PO Q6H PRN #14 tablet 05/18/23 [Percocet 5-325 mg Tablet] - Allergies Allergies/Adverse Reactions: Allergies Allergy/AdvReac Type Severity Reaction Status Date / Time Penicillins Allergy Hives Verified 08/25/23 13:44 Sulfa (Sulfonamide Allergy Hives Verified 08/25/23 13:44 Antibiotics) Review of Systems - Constitutional Constitutional: reports: Other (Negative except for HPI, PMH) Exam - Vital Signs Vital Signs: Vital Signs x48h Temp Pulse Pulse Resp BP BP Pulse Ox 08/25/23 15:46 36.8 C 120 H 22 144/86 H 94 08/25/23 15:42 36.8 C 120 H 22 144/86 H 94 08/25/23 15:30 36.8 C 140 H 24 128/60 94 08/25/23 15:25 36.9 C 136 H 24 140/64 H 94 08/25/23 13:46 36.4 C L 116 H 18 92 08/25/23 13:44 36.4 C L 116 H 18 92 - Physical Exam General Appearance: positive: Moderate distress, Anxious Eyes Bilateral: positive: PERRL, EOMI ENT: positive: Dry mucous membranes Neck: positive: Trachea midline Respiratory: negative: No respiratory distress (mild distress, satting in 80s on my arrival, improved with deep breathing, to 93% on RA) Cardiovascular: positive: Irregularly irregular Peripheral Pulses: positive: 1+ Abdomen: positive: Tenderness (epigastric), Other (morbidly obese). negative: Guarding, Rebound Rectal: positive: Other (patient was covered in melanotic stool on presentation) Skin: positive: Pallor Extremities: positive: Non-tender Neurologic/Psychiatric: positive: Oriented x3 Conclusion and Plan - Lab Results Microbiology Results 08/25/23 14:12 Stool Occult Blood - Final Laboratory Results 08/25/23 14:02: WBC 14.9 H, RBC 2.38 L, Hgb 6.8 L*, Hct 22.7 L, MCV 95.4, MCH 28.6, MCHC 30.0 L, RDW 15.0, Plt Count 307, MPV 10.6, Neut # (Auto) 10.6 H, Lymph # (Auto) 3.1, [place] # (Auto) 1.0, Eos # (Auto) 0.0, Baso # (Auto) 0.0, Absolute Nucleated RBC 0.00, Nucleated RBC % 0.0 08/25/23 13:59: Sodium 137, Potassium 3.4 L, Chloride 111, Carbon Dioxide 14 L, Anion Gap 12.0, BUN 104 H*, Creatinine 1.3, Estimated GFR (MDRD) 40 L, Glucose 143 H, Calcium 8.0 L, Total Bilirubin 0.3, AST 10, ALT 11, Alkaline Phosphatase 58, Total Protein 4.9 L, Albumin 3.1 L, Globulin 1.8 L, Albumin/Globulin Ratio 1.7, Lipase < 10 L 08/25/23 13:59: PT 14.1 H, INR 1.3 H 08/25/23 13:59: Blood Type O POSITIVE, Antibody Screen NEGATIVE, Crossmatch IS Only See Detail - Consultation Note Consultation Note: 73 y/o F with: 1. GI bleed - acute blood loss anemia to hgb 6.8 - with elevated BUN, melena, I suspect an upper GI source of her bleeding - She is currently anxious and tachycardic, receiving her first unit of blood - tachycardic and initially hypotensive on presentation though her blood pressure has improved with fluids - I recommend resuscitation prior to endoscopy. - I did discuss upper endoscopy with the patient including the r/b/a of the procedure including bleeding, rebleeding, and perforation. The patient voiced understanding, her questions were answered, and she wished to proceed with upper endoscopy. She signed a consent for the procedure. I also discussed the case with Roddy Cardenas CRNA who notes this patient will require general end otracheal anesthesia for upper endoscopy at our facility and is very high risk for complication at this time. 2. h/o CAD with stents, new onset a fib, morbid obesity, osteoarthritis, chronic pain, HTN, biopolar disorder - troponin pending - Patient is high risk for decompensation. I will discuss with medicine team if they feel patient is appropriate for admission to ICU here. She appears acutely ill and may benefit from transfer to higher level of care with cardiology/pulmonology teams. If the patient is not able to transfer and improves clinically such that she appears to be an appropriate candidate for admission, I would consider upper endoscopy for diagnostic and possibly therapeutic purposes. Thank you for consulting surgery in the care of this patient.
--- NOTE | 2023-08-25 19:15 | ED Physician Documentation ---
ED Addendum - Addendum Addendum: 08/25/23 19:[address] Knutson at 6 PM shift change. At this time she was presented to Dr. Wilson (no relation to me), GI in [place] who agrees on the need to transfer. Defers to hospitalist and they will get that on the line for me. 08/25/23 19:40 Accepted to [facility] by Dr. Mckenzie at this time. [place]ras are completed and she is stable for transport. Condition: Stable Diagnosis: 1. Upper GI bleed 2. New onset atrial fibrillation 3. History of coronary disease Disposition: Transferred to [facility] for higher level of care
[2023-08-25] MEDS: POTASSIUM CHLOR 10 MEQ/100 ML 10 MEQ/100 ML BAG IV SCH (19:20)
[2023-08-25] MEDS: HYDROmorphone 1 MG/ML CARPUJECT IVP STA (21:00)
[2023-08-25] MEDS ORDERED: ACETAMINOPHEN 500 MG TABLET PO PRN (21:25)
[2023-08-25] MEDS ORDERED: ONDANSETRON 4 MG/2 ML VIAL IVP PRN (21:25)
--- NOTE | 2023-08-25 23:11 | ED Physician Documentation ---
ED Addendum - Addendum Addendum: 08/25/23 23:10 Patient received in signout from outgoing physician, please see their d ocumentation for further detail. Repeat hemoglobin and hematocrit is much improved. Transport has become available and patient transferred to [facility] for further evaluation and treatment. 08/26/23 01:58
[2023-08-26] MEDS: PANTOPRAZOLE 40 MG VIAL IVP SCH (00:04)
[2023-08-26 00:17] VITALS: O2SAT 64
[2023-08-26 00:28] VITALS: BP 151/91
[2023-08-26 00:34] LABS: HCT - HEMATOCRIT 26.8 % (37.0-47.0); HGB - HEMOGLOBIN 8.6 g/dL (12.0-16.0)
== END 2023-08-26 00:36 | disposition short-term general hospital (02) ==
LOC: EDUNIT# → ED 13:35
DX: K92.2 Gastrointestinal hemorrhage, unspecified (principal); K92.1 Melena; I48.91 Unspecified atrial fibrillation; D64.9 Anemia, unspecified; I25.10 Atherosclerotic heart disease of native coronary artery without angina pectoris; I10 Essential (primary) hypertension; J44.9 Chronic obstructive pulmonary disease, unspecified; E11.9 Type 2 diabetes mellitus without complications; E78.00 Pure hypercholesterolemia, unspecified; I25.2 Old myocardial infarction; R79.89 Other specified abnormal findings of blood chemistry; E66.01 Morbid (severe) obesity due to excess calories; Z68.41 Body mass index [BMI] 40.0-44.9, adult; Z79.82 Long term (current) use of aspirin; Z79.899 Other long term (current) drug therapy
CPT/HCPCS: 36415; 36430; 80053; 82272; 83690; 84484; 85014; 85018; 85025; 85610; 86850; 86900; 86901; 86920; 93005; 96361; 96365; 96375; 99285; 99291; J1170; P9016; 80048

== ENCOUNTER 2023-09-09 13:43 | Emergency (ER) | payer MEDICARE ==
--- NOTE | 2023-09-09 14:29 | ED Physician Documentation ---
History of Present Illness - Stated complaint Stated Complaint: DISORIENTED - Chief complaint Chief Complaint: General - History obtained from History obtained from: Patient, Family - Additonal information Additional information: 73-year-old woman presents with daughter for the evaluation of diarrhea, confusion, nausea. She was seen by my partner on 24 August found to be in new onset A-fib with a GI bleed. She was sent to [place] because she was deemed to be a high risk surgical candidate. She was there for about a week, during which she had upper and lower endoscopies. Per the daughter there was an old ulcer but no clear active cause of bleeding. She was placed on a PPI and metoprolol. She went home about a week ago and has been doing well up until the morning before yesterday. At that time she called her daughter and had nonspecific symptoms of dry mouth and feeling bad. She developed diarrhea yesterday and was reportedly flailing out and confused overnight last night. At this point she complains of a mild headache but no other specific complaints other than nausea and feeling weak. The daughter does note that since last week she has been taking excessive amounts of Sudafed and her methylphenidate as "uppers." Note by the way there was a delay to triage as the patient checked in and then went directly to the bathroom where she was for a while. PD PAST MEDICAL HISTORY - Past Medical History Past Medical History: Yes Cardiovascular: Hypertension, High cholesterol, [place] Respiratory: COPD Neuro: None, Migraines Endocrine/Autoimmune: Type 2 diabetes GI: GERD PSYCHOLOGICAL EXAMINER: None : None HEENT: None Psych: Depression, Anxiety Musculoskeletal: Osteoarthritis, Chronic back pain Derm: None - Past Surgical History Past Surgical History: Yes General: Cholecystectomy Ortho: Knee replacement - Present Medications Home Medications: Ambulatory Orders Medication Instructions Recorded Confirmed Losartan [Cozaar] 50 mg PO DAILY 02/03/16 09/10/20 OLANZapine [Olanzapine] 5 mg PO DAILY 02/03/16 09/10/20 lamoTRIgine [LaMICtal] 200 mg PO BID 02/03/16 09/10/20 raNITIdine [Zantac] 150 mg PO BID #60 tablet 07/07/17 09/10/20 Hyoscyamine [Levsin] 0.125 mg PO PRN PRN 08/06/17 09/10/20 Sertraline HCl 100 mg PO DAILY 08/06/17 09/10/20 Trazodone HCl 100 mg PO DAILY 08/06/17 09/10/20 Acetaminophen [Tylenol Extra 2 tab PO PRN PRN 08/07/17 09/10/20 Strength] Ibuprofen 2 tab PO PRN PRN 08/07/17 09/10/20 Ondansetron Odt [Zofran Odt] 1 tab SL PRN PRN 08/07/17 09/10/20 Ketotifen Fumarate [Zaditor] 1 drops EACHEYE Q8H PRN #1 bottle 09/10/20 Oxycodone HCl/Acetaminophen 1 - 2 each PO Q6H PRN #7 tablet 09/10/20 [Percocet 5-325 mg Tablet] predniSONE [Deltasone] 40 mg PO DAILY #10 tablet 09/10/20 Oxycodone HCl/Acetaminophen 1 each PO TID PRN #20 tablet 03/27/23 [Percocet 7.5-325 mg Tablet] dexAMETHasone [Decadron] 4 mg PO DAILY #5 tablet 03/27/23 Ibuprofen [Motrin] 400 mg PO BID PRN #20 tablet 05/18/23 Oxycodone HCl/Acetaminophen 1 - 2 each PO Q6H PRN #14 tablet 05/18/23 [Percocet 5-325 mg Tablet] - Allergies Allergies/Adverse Reactions: Allergies Allergy/AdvReac Type Severity Reaction Status Date / Time clavulanic acid Allergy Nausea Verified 09/09/23 14:18 doxycycline Allergy Hives Verified 09/09/23 14:18 Penicillins Allergy Hives Verified 09/09/23 14:18 Sulfa (Sulfonamide Allergy Hives Verified 09/09/23 14:18 Antibiotics) - Social History Does the pt smoke?: No Smoking Status: Never smoker Does the pt drink ETOH?: No Does the pt have substance abuse?: No - Immunizations Immunizations are current?: Yes Immunizations: TDAP >10years/unknown - POLST Patient has POLST: No PD ED PE NORMAL - Vitals Vital signs reviewed: Yes (Tachycardic and hypotensive. On my evaluation she's on the monitor 126/95) - General General: Alert and oriented X 3, No acute distress - HEENT HEENT: PERRL, EOMI - Neck Neck: Supple, no meningeal sign, No bony TTP - Cardiac Cardiac: Other (Tachycardic but regular without murmur) - Respiratory Respiratory: No respiratory distress, Clear bilaterally - Abdomen Abdomen: Soft, Non tender - Extremities Extremities: No edema, No calf tenderness / cord - Neuro Neuro: Alert and oriented X 3, Normal speech Eye Opening: Spontaneous Motor: Obeys Commands Verbal: Oriented GCS Score: 15 Results - Vitals Vitals: Vital Signs - 24 hr 09/09/23 14:08 Temperature 36.3 C L Heart Rate 125 H Respiratory 18 Rate Blood Pressure 89/44 L O2 Saturation 99 Oxygen O2 Source Room air - EKG (time done) 1449 EKG releavant findings:: EKG personally interpreted by author of this note. Relevant findings are: Rate: Rate (enter#) (119) Rhythm: Sinus tachycardia (w pac/pvc) Tillar: Normal Intervals: RBBB QRS: Normal Ischemia: Q waves. No: ST elevation c/w ischemia Computer interpretation: Agree with computer - Labs Labs: Laboratory Tests 09/09/23 09/09/23 09/09/23 14:43 14:43 14:43 WBC 9.2 RBC 3.73 L Hgb 10.4 L Hct 33.6 L MCV 90.1 MCH 27.9 MCHC 31.0 L RDW 15.6 H Plt Count 469 H MPV 9.2 Neut # (Auto) 6.2 Lymph # (Auto) 1.9 Wetzel # (Auto) 1.0 Eos # (Auto) 0.1 Baso # (Auto) 0.0 Absolute Nucleated RBC 0.00 Nucleated RBC % 0.0 PT INR VBG pH VBG pCO2 VBG pO2 VBG HCO3 VBG Total CO2 VBG O2 Saturation VBG Base Excess Sodium 134 L Potassium 3.6 Chloride 102 Carbon Dioxide 19 L Anion Gap 13.0 BUN 14 Creatinine 1.3 Estimated GFR (MDRD) 40 L Glucose 144 H Lactic Acid 1.8 Calcium 10.0 Phosphorus 2.9 Magnesium 1.6 L Total Bilirubin 0.5 AST 20 ALT 15 Alkaline Phosphatase 120 Ammonia Total Protein 7.0 Albumin 4.1 Globulin 2.9 Albumin/Globulin Ratio 1.4 Lipase < 10 L Urine Color Urine Clarity Urine pH Ur Specific [place] Urine Protein Urine Glucose (UA) Urine Ketones Urine Occult Blood Urine Nitrite Urine Bilirubin Urine Urobilinogen Ur Leukocyte Esterase Urine RBC Urine WBC Ur Squamous Epith Cells Amorphous Sediment Urine Bacteria Ur Microscopic Review Urine Culture Comments Urine Opiates Screen Ur Buprenorphine Scrn Ur Oxycodone Screen Urine Methadone Screen Ur Barbiturates Screen Ur Tricyclics Screen Ur Phencyclidine Scrn Ur Amphetamine Screen U Methamphetamines Scrn U Benzodiazepines Scrn Urine Cocaine Screen U Cannabinoids Screen Ur Drug Screen Comment Ethyl Alcohol < 10.0 09/09/23 09/09/23 09/09/23 14:43 14:43 14:43 WBC RBC Hgb Hct MCV MCH MCHC RDW Plt Count MPV Neut # (Auto) Lymph # (Auto) Wetzel # (Auto) Eos # (Auto) Baso # (Auto) Absolute Nucleated RBC Nucleated RBC % PT 12.9 H INR 1.2 VBG pH 7.371 VBG pCO2 31.8 L VBG pO2 46.8 VBG HCO3 18.0 L VBG Total CO2 19.0 L VBG O2 Saturation 83.3 H VBG Base Excess -6.2 L Sodium Potassium Chloride Carbon Dioxide Anion Gap BUN Creatinine Estimated GFR (MDRD) Glucose Lactic Acid Calcium Phosphorus Magnesium Total Bilirubin AST ALT Alkaline Phosphatase Ammonia 27.2 Total Protein Albumin Globulin Albumin/Globulin Ratio Lipase Urine Color Urine Clarity Urine pH Ur Specific Beck[place] Urine Protein Urine Glucose (UA) Urine Ketones Urine Occult Blood Urine Nitrite Urine Bilirubin Urine Urobilinogen Ur Leukocyte Esterase Urine RBC Urine WBC Ur Squamous Epith Cells Amorphous Sediment Urine Bacteria Ur Microscopic Review Urine Culture Comments Urine Opiates Screen Ur Buprenorphine Scrn Ur Oxycodone Screen Urine Methadone Screen Ur Barbiturates Screen Ur Tricyclics Screen Ur Phencyclidine Scrn Ur Amphetamine Screen U Methamphetamines Scrn U Benzodiazepines Scrn Urine Cocaine Screen U Cannabinoids Screen Ur Drug Screen Comment Ethyl Alcohol 09/09/23 09/09/23 16:18 16:18 WBC RBC Hgb Hct MCV MCH MCHC RDW Plt Count MPV Neut # (Auto) Lymph # (Auto) Wetzel # (Auto) Eos # (Auto) Baso # (Auto) Absolute Nucleated RBC Nucleated RBC % PT INR VBG pH VBG pCO2 VBG pO2 VBG HCO3 VBG Total CO2 VBG O2 Saturation VBG Base Excess Sodium Potassium Chloride Carbon Dioxide Anion Gap BUN Creatinine Estimated GFR (MDRD) Glucose Lactic Acid Calcium Phosphorus Magnesium Total Bilirubin AST ALT Alkaline Phosphatase Ammonia Total Protein Albumin Globulin Albumin/Globulin Ratio Lipase Urine Color YELLOW Urine Clarity CLOUDY Urine pH 7.0 Ur Specific Beck[place] 1.025 Urine Protein 30 H Urine Glucose (UA) NEGATIVE Urine Ketones 40 H Urine Occult Blood NEGATIVE Urine Nitrite NEGATIVE Urine Bilirubin MODERATE H Urine Urobilinogen 0.2 (NORMAL) Ur Leukocyte Esterase TRACE H Urine RBC 3 Urine WBC 11-25 H Ur Squamous Epith Cells MOD Squamous H Amorphous Sediment Few Urine Bacteria Many H Ur Microscopic Review INDICATED Urine Culture Comments NOT INDICATED Urine Opiates Screen NEGATIVE Ur Buprenorphine Scrn NEGATIVE Ur Oxycodone Screen NEGATIVE Urine Methadone Screen NEGATIVE Ur Barbiturates Screen NEGATIVE Ur Tricyclics Screen NEGATIVE Ur Phencyclidine Scrn NEGATIVE Ur Amphetamine Screen NEGATIVE U Methamphetamines Scrn NEGATIVE U Benzodiazepines Scrn NEGATIVE Urine Cocaine Screen NEGATIVE U Cannabinoids Screen NEGATIVE Ur Drug Screen Comment CUTOFF CONC BELOW: Ethyl Alcohol PD Medical Decision Making - ED course ED course: This is a 73-year-old woman who presents by POV companied by the daughter for nausea, shakiness, confusion and diarrhea. She was briefly hypotensive in triage, which had resolved by the time she got to the room where I was seeing her. She was tachycardic. Differential diagnosis is broad and includes continued GI bleeding, renal failure, cardiac issue, hepatic encephalopathy, infection. That said the daughter and patient admits she has been excessively using both Sudafed and methylphenidate as "uppers" and that could be explanatory. She was administered IV fluids and a workup was done showing significant improvement in hemoglobin hematocrit on CBC since prior values with GI bleeding. She has unremarkable venous blood gas and coagulation parameters. CMP, lactate, ammonia levels, and toxicology screens were normal/negative. She does have a contaminated urine but no signs or symptoms of UTI. She was feeling much better after some time in the emergency department and the fluids. She was counseled not to overuse Sudafed and methylphenidate and not use them in combination. Departure - Departure Disposition: 01 Home, Self Care Clinical Impression: Shakiness, Nausea, Tachycardia Stimulant intoxication Qualifiers: Complication of substance-induced condition: with unspecified complication Qualified Code(s): F15.929 - Other stimulant use, unspecified with intoxication, unspecified Condition: Good Record reviewed to determine appropriate education?: Yes Comments: As discussed, we suspect the symptoms today are due to combination overdoses of methylphenidate and pseudoephedrine which are both stimulants. I would recommend against the use of either of these especially given age. Take it easy today and drink plenty of fluids. Call your doctor to arrange a follow-up appointment, make the next available appointment. In the interim, return anytime if worse or if new symptoms develop. Continue other medications other than the stimulants. Avoid excessive caffeine use 2. Forms: PCP List
[2023-09-09 14:50] LABS: BASOPHILS % (AUTO) 0.3 %; EOSINOPHILS # (AUTO) 0.1 10^3/uL (0.0-0.7); HCT - HEMATOCRIT 33.6 % (37.0-47.0); HGB - HEMOGLOBIN 10.4 g/dL (12.0-16.0); LYMPHOCYTES # (AUTO) 1.9 10^3/uL (1.5-3.5); LYMPHOCYTES % (AUTO) 20.2 %; MEAN CORPUSCULAR HEMOGLOBIN 27.9 pg (27.0-31.0); MEAN CORPUSCULAR VOLUME 90.1 fL (81.0-99.0); MEAN PLATELET VOLUME 9.2 fL (7.9-10.8); MONOCYTES % (AUTO) 10.7 %; NEUTROPHILS # (AUTO) 6.2 10^3/uL (1.5-6.6); NEUTROPHILS % (AUTO) 67.3 %; PLT - PLATELET COUNT 469 10^3/uL (130-450); RED BLOOD COUNT 3.73 10^6/uL (4.20-5.40); RED CELL DISTRIBUTION WIDTH 15.6 % (12.0-15.0); WHITE BLOOD COUNT 9.2 x10^3/uL (4.8-10.8)
[2023-09-09] MEDS: SODIUM CHLORIDE 0.9% 1,000 ML IV STA (14:53)
[2023-09-09 15:04] LABS: VBG PH 7.371 (7.31-7.41)
[2023-09-09 15:05] LABS: ALBUMIN 4.1 g/dL (3.2-5.5); ALBUMIN/GLOBULIN RATIO 1.4 (1.0-2.2); ALKALINE PHOSPHATASE 120 IU/L (42-121); ALT ALANINE AMINOTRANSFERASE 15 IU/L (10-60); AST ASPARTATE AMINOTRANSFERASE 20 IU/L (10-42); BILIRUBIN,TOTAL 0.5 mg/dL (0.2-1.0); BUN - BLOOD UREA NITROGEN 14 mg/dL (6-20); CARBON DIOXIDE - CO2 19 mmol/L (21-32); CHLORIDE 102 mmol/L (101-111); CREATININE 1.3 mg/dL (0.6-1.3); ETOH - ETHANOL < 10.0 mg/dL; GFR - MDRD 40 (>89); GLUCOSE 144 mg/dL (74-104); MAGNESIUM 1.6 mg/dL (1.7-2.3); PHOSPHORUS 2.9 mg/dL (2.5-5.0); POTASSIUM 3.6 mmol/L (3.5-4.5); SODIUM 134 mmol/L (135-145); VBG PCO2 31.8 mmHg (41-51)
[2023-09-09 15:06] LABS: VBG BASE EXCESS -6.2 mmol/L (-2 - +2); VBG OXYGEN SATURATION 83.3 % (60-80); VBG PO2 46.8 mmHg (25-47)
[2023-09-09 15:10] LABS: INR 1.2 (0.8-1.2); PT - PROTHROMBIN TIME 12.9 secs (9.9-12.6)
[2023-09-09 15:14] LABS: LIPASE < 10 U/L (11-82)
--- NOTE | 2023-09-09 15:43 | XRAY Report ---
PROCEDURE: Chest 1V INDICATIONS: shock TECHNIQUE: One view of the chest was acquired. COMPARISON: 05/23/2023 FINDINGS: Surgical changes and devices: None. Lungs and pleura: Low lung volumes. No dense consolidation or pleural effusion. Mediastinum: Cardiomegaly. Cardiomediastinal contours are unchanged. Bones and chest wall: Degenerative findings. IMPRESSION: No acute radiographic abnormality. Limited single view portable study. Cardiomegaly. Reviewed by: Chapo Chow MD on 09/09/2023 3:42 PM PDT Approved by: Chapo Chow MD on 09/09/2023 3:42 PM PDT Station ID: [id number]
[2023-09-09 16:29] LABS: BILIRUBIN,URINE MODERATE (NEGATIVE); GLUCOSE, URINE (UA) NEGATIVE (NEGATIVE); KETONES,URINE (UA) 40 mg/dL (NEGATIVE); LEUKOCYTE ESTERASE, URINE TRACE (NEGATIVE); NITRITE,URINE NEGATIVE (NEGATIVE); OCCULT BLOOD,URINE NEGATIVE (NEGATIVE); PROTEIN,URINE 30 mg/dL (NEGATIVE); UROBILINOGEN,URINE 0.2 (NORMAL) E.U./dL (NORMAL)
[2023-09-09 16:31] LABS: CLARITY,URINE CLOUDY (CLEAR)
[2023-09-09 16:39] LABS: AMORPHOUS SEDIMENT,UR Few /LPF; BACTERIA,URINE Many /HPF (None Seen); RBC,URINE 3 /HPF (0-5); SQUAMOUS EPITHELIAL CELL,UR MOD Squamous (<= Few)
[2023-09-09 16:41] LABS: AMPHETAMINE SCREEN,URINE NEGATIVE (NEGATIVE); BARBITURATE SCREEN,UR NEGATIVE (NEGATIVE); BENZODIAZEPINES SCREEN, URINE NEGATIVE (NEGATIVE); COCAINE SCREEN URINE NEGATIVE (NEGATIVE); METHADONE SCREEN, URINE NEGATIVE (NEGATIVE); METHAMPHETAMINES SCREEN, URINE NEGATIVE (NEGATIVE); OPIATE SCREEN, URINE NEGATIVE (NEGATIVE); THC CANNABINOID SCREEN, URINE NEGATIVE (NEGATIVE); TRICYCLIC ANTIDEPRESSANT,URINE NEGATIVE (NEGATIVE)
[2023-09-09 16:42] LABS: BUPRENORPHINE SCREEN, URINE NEGATIVE (NEGATIVE); OXYCODONE SCREEN, URINE NEGATIVE (NEGATIVE)
[2023-09-09 17:20] VITALS: BP 143/64; O2SAT 98
== END 2023-09-09 17:34 | disposition home or self-care (01) ==
LOC: ED 13:43
DX: R00.0 Tachycardia, unspecified (principal); R11.0 Nausea; I10 Essential (primary) hypertension; I48.91 Unspecified atrial fibrillation; E78.00 Pure hypercholesterolemia, unspecified; J44.9 Chronic obstructive pulmonary disease, unspecified; E11.9 Type 2 diabetes mellitus without complications; Z79.899 Other long term (current) drug therapy
CPT/HCPCS: 36415; 71045; 80053; 80306; 81001; 82140; 82803; 83605; 83690; 83735; 84100; 85025; 85610; 87040; 93005; 96360; 96361; 99284; G0480; 81003; 82077; 87086

== ENCOUNTER 2023-09-11 05:26 | Outpatient (CLI) | payer MEDICARE | END 2023-09-11 23:59 | disposition critical access hospital (66) | LOC: EMS 05:26 | DX: M54.50 Low back pain, unspecified (principal); W01.0XXA Fall on same level from slipping, tripping and stumbling without subsequent striking against object, initial encounter; Y92.003 Bedroom of unspecified non-institutional (private) residence as the place of occurrence of the external cause | CPT/HCPCS: A0425; A0429 ==

== ENCOUNTER 2023-09-11 06:44 | Emergency (ER) | payer MEDICARE ==
--- NOTE | 2023-09-11 07:16 | ED Physician Documentation ---
PD HPI Fall - Stated complaint Stated Complaint: GLF - Chief complaint Chief Complaint: Trauma Ch/Bk - History obtained from History obtained from: Patient - History of Present Illness Mechanism of injury: Tripped (fixing bed sheets and the cloth got around her foot and she fell forward to knee and struck forehead. No LOC. Some headache.) Fall distance: Standing position Where injury occurred: Home Timing - onset: Today Injury(ies) location: Head, Back, Right Lower Extremity (knee anteriorly). No: Chest, Abdomen Pain level max: 2 Pain level now: 2 Quality of pain: Throbbing, Aching Associated symptoms: No: LOC, AMS Worsens with: Movement (for low back), Palpation Contributing factors: No: Anticoagulated (but antiplatelet agent of Plavix daily.) Review of Systems Musculoskeletal: denies: Neck pain Neurologic: denies: Focal weakness, Numbness, Altered mental status, LOC PD PAST MEDICAL HISTORY - Past Medical History Past Medical History: Yes Cardiovascular: Hypertension, High cholesterol, [place] Respiratory: COPD Neuro: Migraines Endocrine/Autoimmune: Type 2 diabetes GI: GERD GRAIN DISTRIBUTOR: None : None HEENT: None Psych: Depression, Anxiety Musculoskeletal: Osteoarthritis, Chronic back pain Derm: None - Past Surgical History Past Surgical History: Yes General: Cholecystectomy Ortho: Knee replacement HEENT: Other - Present Medications Home Medications: Ambulatory Orders Medication Instructions Recorded Confirmed Losartan [Cozaar] 50 mg PO DAILY 02/03/16 09/11/23 OLANZapine [Olanzapine] 5 mg PO DAILY 02/03/16 09/10/20 lamoTRIgine [LaMICtal] 200 mg PO BID 02/03/16 09/10/20 raNITIdine [Zantac] 150 mg PO BID #60 tablet 07/07/17 09/10/20 Sertraline HCl 100 mg PO DAILY 08/06/17 09/10/20 Trazodone HCl 100 mg PO DAILY 08/06/17 09/11/23 Atorvastatin [Lipitor] 20 mg PO QPM 09/11/23 09/11/23 Clopidogrel [Plavix] 75 mg PO DAILY 09/11/23 09/11/23 DULoxetine [Cymbalta] 120 mg PO DAILY 09/11/23 09/11/23 Lurasidone HCl [Latuda] 80 mg PO DAILY 09/11/23 09/11/23 Methylphenidate HCl 20 mg ORAL DAILY 09/11/23 09/11/23 Oxycodone HCl/Acetaminophen 1 each PO Q6H PRN #14 tablet 09/11/23 [Percocet 5-325 mg Tablet] Pantoprazole [Protonix] 40 mg PO DAILY 09/11/23 09/11/23 - Allergies Allergies/Adverse Reactions: Allergies Allergy/AdvReac Type Severity Reaction Status Date / Time clavulanic acid Allergy Nausea Verified 09/11/23 06:47 doxycycline Allergy Hives Verified 09/11/23 06:47 Penicillins Allergy Hives Verified 09/11/23 06:47 Sulfa (Sulfonamide Allergy Hives Verified 09/11/23 06:47 Antibiotics) - Social History Does the pt smoke?: No Smoking Status: Never smoker Does the pt drink ETOH?: No Does the pt have substance abuse?: No - Immunizations Immunizations are current?: Yes Immunizations: TDAP >10years/unknown - POLST Patient has POLST: No PD ED PE NORMAL - Vitals Vital signs reviewed: Yes - General General: Alert and oriented X 3, No acute distress, Well developed/nourished - HEENT HEENT: Other (some tenderness forehead and right parietal area. ) - Neck Neck: Supple, no meningeal sign, No bony TTP, C-Spine cleared by NEXUS criteria - Back Back: No CVA TTP, No spinal TTP (but some muscle tederness right paralumbar area. ) - Derm Derm: Normal color, Warm and dry - Extremities Extremities: Other (some tenderness anterior knee without deformity Mild effusion. ROm mildly limited from that. No clikcing nor popping. No laxity with stress testing. ) Results - Vitals Vitals: Vital Signs - 24 hr 09/11/23 10:00 Heart Rate 86 Respiratory 15 Rate Blood Pressure 107/50 L O2 Saturation 98 Oxygen O2 Source Room air - Rads (name of study) head CT Relevant Findings:: Prelim report reviewed (no ICH nor acute findings. ), EMP independent interpretation of test lumbar CT Relevant Findings:: Prelim report reviewed (no acute fractures), EMP independent interpretation of test knee xray Relevant Findings:: Prelim report reviewed (arthritic changes chronic, no acute fracutres. ), EMP independent interpretation of test PD Medical Decision Making - ED course Complexity details: reviewed results (CT head and lubar wihtout fractures. Knee xray with arthritis but no fractures. ), considered differential (Clinically not seeming too injured byt did strike head and is having back and knee pain. Shared ecision for imaging of these areas to ensure no osseous injuries. ), d/w patient Departure - Departure Disposition: 01 Home, Self Care Clinical Impression: Fall from slip, trip, or stumble, Head contusion, Low back pain, Knee contusion Condition: Stable Record reviewed to determine appropriate education?: Yes Prescriptions: Oxycodone HCl/Acetaminophen [Percocet 5-325 mg Tablet] 1 each PO Q6H PRN #14 tablet PRN Reason: pain Comments: Your CT scans did not show any signs of bleeding in the brain compartment or other acute findings. The CT of the spine and there is certainly old arthritic changes in injuries but no new injuries. Your knee x-ray is good as well without any new injury but certainly arthritis. No doubt you will be sore in the area is injured for several days at least just from the fall. I would suggest some regular medications with Tylenol 500 to 650 mg 4 times a day for the next several days to week. Add oxycodone every 4 to 6 to 8 hours if needed for worse pain. I sent your prescription to your preferred pharmacy. Ice to areas that are sore tender today to help with any swelling. Activity as tolerated. Forms: PCP List Discharge Date/Time: 09/11/23 10:18
[2023-09-11] MEDS: KETOROLAC 15 MG/ML VIAL IVP STA (07:33)
--- NOTE | 2023-09-11 08:04 | XRAY Report ---
PROCEDURE: Knee 3V RT INDICATIONS: fall, right knee pain anteriorly TECHNIQUE: 3 views of the knee(s) were acquired. COMPARISON: 05/18/2023, 03/27/2023. FINDINGS: Bones: No fractures or dislocations. Moderate to severe osteoarthritic changes throughout right knee are seen most notably in medial femoral tibial compartment. Mild genu varum is seen. No suspicious b karen lesions. Soft tissues: No knee joint effusion. No suspicious soft tissue calcifications or masses. IMPRESSION: No acute bony abnormality. Moderate to severe tricompartmental osteoarthritis in right knee. Mild gen u varum. No significant joint effusion. Reviewed by: Parth Deleon MD on 09/11/2023 8:02 AM PDT Approved by: Parth Deleon MD on 09/11/2023 8:02 AM PDT Station ID: [id number]
--- NOTE | 2023-09-11 08:29 | CT Report ---
PROCEDURE: Head WO INDICATIONS: fall, struck head; SUTTON; plavix TECHNIQUE: Noncontrast 4.5 mm thick angled axial sections acquired from the foramen magnum to the vertex. For r adiation dose reduction, the following was used: automated exposure control, adjustment of mA and/or kV according to patient size. COMPARISON: 06/04/2013 FINDINGS: Image quality: Diagnostic. Patient motion is noted.. CSF spaces: Basal cisterns are patent. No extra-axial fluid collections. The ventricles are symmet jazmin in size and shape. Brain: No intracranial bleeds or masses. There is cerebral volume loss for age, with resultant vent ricular and sulcal prominence. There are periventricular and deep white matter chronic small vessel ischemic changes. There is intracranial internal carotid artery atherosclerosis. Skull and face: Calvarium and visualized facial bones appear intact, without suspicious lesions. Sinuses: Visualized sinuses and mastoids are clear. IMPRESSION: 1. Patient motion is noted. 2. No gross acute intracranial abnormalities. 3. Age-related atrophy and extensive white matter chronic small vessel ischemic changes. Reviewed by: Parth Deleon MD on 09/11/2023 8:28 AM PDT Approved by: Parth Deleon MD on 09/11/2023 8:28 AM PDT Station ID: [id number]
--- NOTE | 2023-09-11 08:38 | CT Report ---
PROCEDURE: Lumbar Spine WO INDICATIONS: fall, low back pain acutely TECHNIQUE: Noncontrast 3 mm thick sections acquired from the T12 level to the sacrum. Sagittal and coronal refo rmats were constructed. For radiation dose reduction, the following was used: automated exposure co ntrol, adjustment of mA and/or kV according to patient size. COMPARISON: Lumbar spine radiograph dated 03/30/2019 and 03/01/2014. CT of abdomen and pelvis dated 07/07/2017. FINDINGS: Image quality: Excellent. Bones: There is normal bony alignment. Chronic superior endplate anterior wedge compression deformit y at L1 level is seen with up to 20% loss of L1 vertebral body height unchanged from 2018 study. Old fracture involving right transverse process of L1 is also seen with chronic-appearing deformity. No a cute vertebral body compression fractures. No suspicious lytic or blastic bony lesions. Central spi nal caliber is of normal overall caliber. No pars defects. T12-L1: Degenerative endplate changes are seen. No significant disc bulge, canal stenosis or neural n arrowing. L1-L2: Degenerative endplate changes are seen. No significant disc bulge, canal stenosis or neural foraminal narrowing. L2-L3: Vacuum disc phenomenon and degenerative endplate changes are seen. Broad-based disc bulge a nd bilateral facet arthrosis is seen causing moderate central canal stenosis and right worse than lef t bilateral neural foraminal narrowing. L3-L4: Degenerative endplate changes are seen. Diffuse disc bulge and bilateral facet arthrosis wit h [id number] central canal stenosis and bilateral neural foraminal narrowing is seen. L4-L5: Degenerative endplate changes are seen. Broad-based disc bulge and bilateral facet arthrosis causing moderate central canal stenosis and bilateral neural foraminal narrowing. L5-S1: Loss of disc height and degenerative endplate changes are noted. Broad-based disc bulge and bilateral facet arthrosis is seen with mild central canal stenosis and moderate bilateral neural fora raoul narrowing. Soft tissues: No retroperitoneal masses or hematomas. Visualized aorta is normal in caliber. IMPRESSION: 1. No acute lumbar spine fracture or dislocation. No acute vertebral body compression fracture. Old i njury involving right transverse process of L1. Chronic anterior wedge compression deformity involvin g superior endplate of L1. 2. Degenerative disc disease throughout lower thoracic and lumbar spine causing various degrees of ce ntral canal stenosis and bilateral neural foraminal narrowing most notably at L4-5 level as above. Reviewed by: Parth Deleon MD on 09/11/2023 8:37 AM PDT Approved by: Parth Deleon MD on 09/11/2023 8:37 AM PDT Station ID: [id number]
[2023-09-11 09:11] VITALS: O2SAT 98
[2023-09-11 10:21] VITALS: BP 107/50
== END 2023-09-11 10:18 | disposition home or self-care (01) ==
LOC: EDUNIT# → ED 06:44
DX: S00.93XA Contusion of unspecified part of head, initial encounter (principal); S80.01XA Contusion of right knee, initial encounter; W01.0XXA Fall on same level from slipping, tripping and stumbling without subsequent striking against object, initial encounter; Y93.E9 Activity, other interior property and clothing maintenance; Y92.003 Bedroom of unspecified non-institutional (private) residence as the place of occurrence of the external cause; M47.816 Spondylosis without myelopathy or radiculopathy, lumbar region; M17.11 Unilateral primary osteoarthritis, right knee
CPT/HCPCS: 96374; 99284

== ENCOUNTER 2023-09-30 11:21 | Outpatient (CLI) | payer MEDICARE ==
[2023-09-30 14:47] LABS: BASOPHILS % (AUTO) 0.5 %; EOSINOPHILS # (AUTO) 0.2 10^3/uL (0.0-0.7); EOSINOPHILS % (AUTO) 2.1 %; HCT - HEMATOCRIT 35.5 % (37.0-47.0); HGB - HEMOGLOBIN 10.7 g/dL (12.0-16.0); LYMPHOCYTES # (AUTO) 2.2 10^3/uL (1.5-3.5); MEAN CORPUSCULAR HEMOGLOBIN 27.6 pg (27.0-31.0); MEAN CORPUSCULAR HGB CONC 30.1 g/dL (32.0-36.0); MEAN CORPUSCULAR VOLUME 91.5 fL (81.0-99.0); MEAN PLATELET VOLUME 10.3 fL (7.9-10.8); MONOCYTES # (AUTO) 0.7 10^3/uL (0.0-1.0); MONOCYTES % (AUTO) 8.3 %; NEUTROPHILS % (AUTO) 61.8 %; PLT - PLATELET COUNT 331 10^3/uL (130-450); RED BLOOD COUNT 3.88 10^6/uL (4.20-5.40); RED CELL DISTRIBUTION WIDTH 15.7 % (12.0-15.0)
[2023-09-30 15:17] LABS: FERRITIN 30.8 ng/mL (11.0-306.8)
[2023-09-30 15:43] LABS: ALBUMIN/GLOBULIN RATIO 1.3 (1.0-2.2); BILIRUBIN,TOTAL 0.4 mg/dL (0.2-1.0); CREATININE 1.1 mg/dL (0.6-1.3); POTASSIUM 3.9 mmol/L (3.5-4.5)
== END 2023-09-30 11:22 | disposition home or self-care (01) ==
LOC: LAB.S 11:21
PROVIDERS: ATTEND Registered Nurse
DX: D64.9 Anemia, unspecified (principal); K92.2 Gastrointestinal hemorrhage, unspecified
CPT/HCPCS: 36415; 80053; 82728; 83540; 84466; 85025

== ENCOUNTER 2023-10-16 02:31 | Outpatient (CLI) | payer MEDICARE | END 2023-10-16 23:59 | disposition EMS.NT | LOC: EMS 02:31 | DX: R53.1 Weakness (principal) ==

== ENCOUNTER 2023-10-17 02:07 | Outpatient (CLI) | payer MEDICARE | END 2023-10-17 23:59 | disposition left against medical advice (07) | LOC: EMS 02:07 | DX: R53.1 Weakness (principal); W01.0XXA Fall on same level from slipping, tripping and stumbling without subsequent striking against object, initial encounter; Y92.009 Unspecified place in unspecified non-institutional (private) residence as the place of occurrence of the external cause; Z79.02 Long term (current) use of antithrombotics/antiplatelets; Z59.19 Other inadequate housing; Z77.128 Contact with and (suspected) exposure to other hazards in the physical environment ==

== ENCOUNTER 2023-11-02 09:12 | Emergency (ER) | payer MEDICARE ==
--- NOTE | 2023-11-02 10:09 | ED Physician Documentation ---
PD HPI LOWER EXT INJURY - Stated complaint Stated Complaint: LT TOE PX - Chief complaint Chief Complaint: Ext Problem - History obtained from History obtained from: Patient - Additional information Additional information: The patient comes to the emergency department with chief complaint of left great toe pain and is worried about possible infection. She states that she has not been able to clip her toenails for months and that they have grown very long. She has been busy taking care of her partner who is in poor health. She has never been to a spin table operator. She denies catching her toenails on anything recently, or sustaining any trauma. She denies any fevers or swelling of the toe. No other complaints at this time. PD PAST MEDICAL HISTORY - Past Medical History Cardiovascular: Hypertension, High cholesterol, [place] Respiratory: COPD Neuro: Migraines Endocrine/Autoimmune: Type 2 diabetes GI: GERD SENIOR SUPPORT ENGINEER: None : None HEENT: None Psych: Depression, Anxiety Musculoskeletal: Osteoarthritis, Chronic back pain Derm: None - Past Surgical History Past Surgical History: Yes General: Cholecystectomy Ortho: Knee replacement HEENT: Other - Present Medications Home Medications: Ambulatory Orders Medication Instructions Recorded Confirmed Losartan [Cozaar] 50 mg PO DAILY 02/03/16 11/02/23 OLANZapine [Olanzapine] 5 mg PO DAILY 02/03/16 09/10/20 Sertraline HCl 100 mg PO DAILY 08/06/17 09/10/20 Trazodone HCl 100 mg PO DAILY 08/06/17 11/02/23 Atorvastatin [Lipitor] 20 mg PO QPM 09/11/23 11/02/23 Clopidogrel [Plavix] 75 mg PO DAILY 09/11/23 11/02/23 DULoxetine [Cymbalta] 120 mg PO DAILY 09/11/23 11/02/23 Lurasidone HCl [Latuda] 80 mg PO DAILY 09/11/23 11/02/23 Methylphenidate HCl 20 mg ORAL DAILY 09/11/23 11/02/23 Oxycodone HCl/Acetaminophen 1 each PO Q6H PRN #14 tablet 09/11/23 11/02/23 [Percocet 5-325 mg Tablet] Pantoprazole [Protonix] 40 mg PO DAILY 09/11/23 11/02/23 HYDROcod/ACETAM 5/325 [[place]yers 5/325] 1 - 2 tablet PO Q6H PRN #7 tablet 11/02/23 Metoprolol Succinate [Toprol Xl] 1 tab PO DAILY 11/02/23 11/02/23 - Allergies Allergies/Adverse Reactions: Allergies Allergy/AdvReac Type Severity Reaction Status Date / Time clavulanic acid Allergy Nausea Verified 11/02/23 09:23 doxycycline Allergy Hives Verified 11/02/23 09:23 Penicillins Allergy Hives Verified 11/02/23 09:23 Sulfa (Sulfonamide Allergy Hives Verified 11/02/23 09:23 Antibiotics) - Social History Does the pt smoke?: No Smoking Status: Never smoker Does the pt drink ETOH?: No Does the pt have substance abuse?: No - Immunizations Immunizations are current?: Yes Immunizations: TDAP >10years/unknown - POLST Patient has POLST: No PD ED PE NORMAL - Vitals Vital signs reviewed: Yes - General General: No acute distress, Well developed/nourished, Other (Alert, grossly oriented.) - HEENT HEENT: Atraumatic, EOMI, Moist mucous membranes - Neck Neck: Supple, no meningeal sign - Cardiac Cardiac: Strong equal pulses - Respiratory Respiratory: No respiratory distress - Derm Derm: Normal color, Warm and dry, No rash - Extremities Extremities: No deformity, Other (Extremely long, curled, thickened toenails on all toes of left foot. Toes themselves are pink, nonedematous, and nonindurated. There is no evidence of infection. No drainage from under the toenails. No ingrown toenails.) - Neuro Neuro: Other (Grossly intact.) - Psych Psych: Normal mood, Normal affect Results - Vitals Vitals: Vital Signs - 24 hr 11/02/23 09:17 Temperature 36.0 C L Heart Rate 74 Respiratory 20 Rate Blood Pressure 153/88 H O2 Saturation 98 Oxygen O2 Source Room air PD Medical Decision Making - ED course Complexity details: considered differential, d/w patient ED course: I discussed with the patient that I am not certain that we have clippers that can handle her toenails in the current condition. I have checked our instrument supply subsequently and found that we do not have anything that can clip the patient's toenails in their current state. I do not find any evidence of ingrown toenails or infected toes and as such, there is no emergent condition to be handled at this time. I have advised the patient that she should call and make an appointment with either her primary doctor or the spin table operator in [place], Dr. Winkler, to have her toenails taken care of. She has been ambulatory for months with these long toenails and this has not changed recently. We have discussed the usual indications for return. Departure - Departure Disposition: Home, Self Care Clinical Impression: Toe pain, left, Overgrown toenails Condition: Stable Instructions: Thickened Nails Follow-Up: Gilberto Winkler DPM [Physician No Access] - Prescriptions: HYDROcod/ACETAM 5/325 [[place] 5/325] 1 - 2 tablet PO Q6H PRN #7 tablet PRN Reason: Pain Comments: There is no evidence of infection of your toe and it looks like your toenails have been growing for many months. Unfortunately, we do not have proper equipment to be able to clip such long thick toenails. The only instrument we have that could maybe do it would be an instrument that is used for taking down the ends of the bones, but this does not have the sharp edges needed to cut through the nail. As such, it is recommended that you go to the podiatry office in [place] to have them inspect her feet and take care of your very long toenails for you. Your toenails do not appear ingrown or infected. There is no other acute treatment indicated at this time. Please call Dr. Winkler's office first thing tomorrow morning to set up an appointment for follow-up. Forms: PCP List
[2023-11-02 10:26] VITALS: BP 146/88; O2SAT 100
== END 2023-11-02 10:16 | disposition home or self-care (01) ==
LOC: ED 09:12
DX: M79.675 Pain in left toe(s) (principal); L60.8 Other nail disorders; I10 Essential (primary) hypertension; E78.00 Pure hypercholesterolemia, unspecified; J44.9 Chronic obstructive pulmonary disease, unspecified; E11.9 Type 2 diabetes mellitus without complications; I25.2 Old myocardial infarction; Z79.899 Other long term (current) drug therapy; Z79.02 Long term (current) use of antithrombotics/antiplatelets
CPT/HCPCS: 99282; 99283

== ENCOUNTER 2023-11-22 08:06 | Outpatient (CLI) | payer MEDICARE | END 2023-11-22 23:59 | disposition EMS.NT | LOC: EMS 08:06 | DX: M25.561 Pain in right knee (principal); W01.0XXA Fall on same level from slipping, tripping and stumbling without subsequent striking against object, initial encounter; Y92.008 Other place in unspecified non-institutional (private) residence as the place of occurrence of the external cause ==

== ENCOUNTER 2024-01-23 08:00 | Outpatient (CLI) | payer MEDICARE | END 2024-01-23 23:59 | disposition home or self-care (01) | LOC: LAB.R 08:00 | PROVIDERS: ATTEND Nurse Practitioner | DX: R11.0 Nausea (principal); Z79.899 Other long term (current) drug therapy | CPT/HCPCS: G0480 ×3; 80324; 80347; 80359; 81599 ==

== ENCOUNTER 2024-01-31 08:00 | Outpatient (CLI) | payer MEDICARE ==
--- NOTE | 2024-02-01 06:52 | XRAY Report ---
PROCEDURE: Hip w/Pelvis 2-3V LT INDICATIONS: LEFT HIP PAIN TECHNIQUE: AP view the pelvis and lateral view of the left hip COMPARISON: Bilateral hip x-rays 03/30/2019 FINDINGS: Diffuse osseous demineralization, which limits the assessment of fractures and fracture acuity. Other fink, no fracture or dislocation. No pelvic ring disruption. Moderate lower lumbar osteoarthritis. Mi ld bilateral hip osteoarthritis. IMPRESSION: No fracture or dislocation of the left hip. Reviewed by: Weston Alfonso MD on 02/01/2024 6:51 AM PDT Approved by: Weston Alfonso MD on 02/01/2024 6:51 AM PDT Station ID: [id number]
== END 2024-01-31 23:59 | disposition home or self-care (01) ==
LOC: DI.S 08:00
PROVIDERS: ATTEND Emergency Medicine
DX: M16.0 Bilateral primary osteoarthritis of hip (principal); M47.816 Spondylosis without myelopathy or radiculopathy, lumbar region

== ENCOUNTER 2024-02-06 14:53 | Outpatient (CLI) | payer MEDICARE | END 2024-02-06 23:59 | disposition critical access hospital (66) | LOC: EMS 14:53 | DX: R10.9 Unspecified abdominal pain (principal); R11.2 Nausea with vomiting, unspecified | CPT/HCPCS: A0425; A0427 ==

== ENCOUNTER 2024-02-06 15:30 | Emergency (ER) | payer MEDICARE ==
--- NOTE | 2024-02-06 15:42 | ED Physician Documentation ---
PD HPI ABD PAIN - Stated complaint Stated Complaint: ABD PX - Chief complaint Chief Complaint: Abd Pain - History obtained from History obtained from: Patient - History of Present Illness Timing - onset: How many days ago (has had intermittent abd cramping pains for couple weeks. More consistent the past 2-3 days. Mainly mid abd to epigastric area, increased with eating.) Timing - duration: Days, Weeks (intermittently) Timing - details: Intermittant, Waxing and waning Quality: Cramping, Aching, Pain Location: Epigastric, Periumbilical Improved by: BM Worsened by: Eating Associated symptoms: Nausea. No: Fever, Diarrhea, Constipation (she states somewhat firm at times but not feeling constipated per se, going every 2-3 days.) Recently seen: Clinic ([facility] and told to take famotidine PRN.) Review of Systems GI: denies: Diarrhea, Bloody / black stool PD PAST MEDICAL HISTORY - Past Medical History Past Medical History: Yes Cardiovascular: Hypertension, High cholesterol, [place] Respiratory: COPD Neuro: Migraines Endocrine/Autoimmune: Type 2 diabetes GI: GERD LOGISTIC SPECIALIST: None : None HEENT: None Psych: Depression, Anxiety Musculoskeletal: Osteoarthritis, Chronic back pain Derm: None - Past Surgical History Past Surgical History: Yes General: Cholecystectomy Ortho: Knee replacement HEENT: Other - Present Medications Home Medications: Ambulatory Orders Medication Instructions Recorded Confirmed Losartan [Cozaar] 50 mg PO DAILY 02/03/16 11/02/23 OLANZapine [Olanzapine] 5 mg PO DAILY 02/03/16 09/10/20 Sertraline HCl 100 mg PO DAILY 08/06/17 09/10/20 Trazodone HCl 100 mg PO DAILY 08/06/17 11/02/23 Atorvastatin [Lipitor] 20 mg PO QPM 09/11/23 11/02/23 Clopidogrel [Plavix] 75 mg PO DAILY 09/11/23 11/02/23 DULoxetine [Cymbalta] 120 mg PO DAILY 09/11/23 11/02/23 Lurasidone HCl [Latuda] 80 mg PO DAILY 09/11/23 11/02/23 Methylphenidate HCl 20 mg ORAL DAILY 09/11/23 11/02/23 Oxycodone HCl/Acetaminophen 1 each PO Q6H PRN #14 tablet 09/11/23 11/02/23 [Percocet 5-325 mg Tablet] Pantoprazole [Protonix] 40 mg PO DAILY 09/11/23 11/02/23 HYDROcod/ACETAM 5/325 [Cliff 5/325] 1 - 2 tablet PO Q6H PRN #7 tablet 11/02/23 Metoprolol Succinate [Toprol Xl] 1 tab PO DAILY 11/02/23 11/02/23 Docusate Sodium 100Mg Capsule 100 mg PO DAILY #15 cap 02/06/24 [Colace 100Mg Capsule] Famotidine [Pepcid] 20 mg PO DAILY #30 tablet 02/06/24 Ondansetron Odt [Zofran] 4 mg TL Q6H PRN #10 tablet 02/06/24 - Allergies Allergies/Adverse Reactions: Allergies Allergy/AdvReac Type Severity Reaction Status Date / Time clavulanic acid Allergy Nausea Verified 02/06/24 15:35 doxycycline Allergy Hives Verified 02/06/24 15:35 Penicillins Allergy Hives Verified 02/06/24 15:35 Sulfa (Sulfonamide Allergy Hives Verified 02/06/24 15:35 Antibiotics) - Social History Does the pt smoke?: No Smoking Status: Never smoker Does the pt drink ETOH?: No Does the pt have substance abuse?: No - Immunizations Immunizations are current?: Yes Immunizations: TDAP >10years/unknown - POLST Patient has POLST: No PD ED PE NORMAL - Vitals Vital signs reviewed: Yes - General General: Alert and oriented X 3, No acute distress, Well developed/nourished - Cardiac Cardiac: RRR, No murmur - Respiratory Respiratory: Clear bilaterally - Abdomen Abdomen: Normal bowel sounds, Soft, Non distended, No organomegaly, Other (some tender without gaurding nor rebound in mid to upper abd.) Results - Vitals Vitals: Vital Signs - 24 hr 02/06/24 02/06/24 02/06/24 15:35 15:38 17:38 Temperature 36.5 C Heart Rate 105 H 99 98 Respiratory 16 Rate Blood Pressure 112/80 112/80 O2 Saturation 94 95 97 02/06/24 02/06/24 19:00 20:08 Temperature 36.5 C Heart Rate 98 Respiratory 18 18 Rate Blood Pressure 134/65 H 134/65 H O2 Saturation 98 98 Oxygen O2 Source Room air - Labs Labs: Laboratory Tests 02/06/24 02/06/24 15:44 15:44 WBC 9.3 RBC 4.69 Hgb 13.4 Hct 42.5 MCV 90.6 MCH 28.6 MCHC 31.5 L RDW 14.5 Plt Count 342 MPV 9.6 Neut # (Auto) 5.8 Lymph # (Auto) 2.5 Bryan # (Auto) 0.9 Eos # (Auto) 0.1 Baso # (Auto) 0.0 Absolute Nucleated RBC 0.00 Nucleated RBC % 0.0 Sodium 136 Potassium 4.0 Chloride 101 Carbon Dioxide 22 Anion Gap 13.0 BUN 21 H Creatinine 1.3 Estimated GFR (MDRD) 40 L Glucose 129 H Calcium 9.9 Total Bilirubin 0.5 AST 14 ALT 14 Alkaline Phosphatase 96 Total Protein 7.2 Albumin 4.1 Globulin 3.1 Albumin/Globulin Ratio 1.3 Lipase 12 PD Medical Decision Making - ED course Complexity details: reviewed results (prior CCY and her LFTs/lipase are normal. Does not sound biliary. No focal process seen on CT. ), considered differential (mid to upper abd pains for few weeks, worsening and consistent. Associated with eating. Has less stools out so consiseer some element of constipation/uneven stools. SYmptoms suggest gastritis as well, so target that.), d/w patient Departure - Departure Disposition: 01 Home, Self Care Clinical Impression: Nausea, Abdominal pain Condition: Stable Record reviewed to determine appropriate education?: Yes Instructions: ED Abdominal Pain Female Non-Specific Abdominal Pain Follow-Up: [facility] [Provider Group] Prescriptions: Docusate Sodium 100Mg Capsule [Colace 100Mg Capsule] 100 mg PO DAILY #15 cap Famotidine [Pepcid] 20 mg PO DAILY #30 tablet Ondansetron Odt [Zofran] 4 mg TL Q6H PRN #10 tablet PRN Reason: Nausea / Vomiting Comments: Your CT scan did not show any obvious acute abnormality. There is certainly problems that will happen throughout the abdominal area that do not show on CT. Your blood tests were also good as well without any signs of inflammation of pancreas or liver. Considerations can be just some general intestinal irritation. Sometimes a viral type illness. Some of your symptoms sound potentially irritation of the stomach such as gastritis or ulcer. I would target treatment that way initially with famotidine acid reducing medicine daily for the next 2 or 3 weeks. In addition ondansetron every 6 hours if needed for nausea. [place] food and nothing too spicy. Minimal alcohol or caffeine. No anti-inflammatories. For pain or discomfort, I would suggest Tylenol/acetaminophen 500 650 mg 3-4 times daily just at that level of it over the next several days or so. On CT scan there is not an excessive amount of stool but with the iron supplement you are taking and some firm stools, sometimes the unevenness through the intestine can cause cramping or pain. I would suggest docusate stool softener daily for the next week or so. I sent prescriptions to the [facility] pharmacy in [place]. See how you do with this combination over the next several days to week. Follow-up with your primary care. Forms: PCP List Discharge Date/Time: 02/06/24 20:12
[2024-02-06 15:53] LABS: BASOPHILS % (AUTO) 0.3 %; EOSINOPHILS # (AUTO) 0.1 10^3/uL (0.0-0.7); EOSINOPHILS % (AUTO) 1.3 %; HCT - HEMATOCRIT 42.5 % (37.0-47.0); HGB - HEMOGLOBIN 13.4 g/dL (12.0-16.0); LYMPHOCYTES # (AUTO) 2.5 10^3/uL (1.5-3.5); LYMPHOCYTES % (AUTO) 26.3 %; MEAN CORPUSCULAR HEMOGLOBIN 28.6 pg (27.0-31.0); MEAN CORPUSCULAR HGB CONC 31.5 g/dL (32.0-36.0); MEAN CORPUSCULAR VOLUME 90.6 fL (81.0-99.0); MEAN PLATELET VOLUME 9.6 fL (7.9-10.8); MONOCYTES # (AUTO) 0.9 10^3/uL (0.0-1.0); MONOCYTES % (AUTO) 9.2 %; NEUTROPHILS # (AUTO) 5.8 10^3/uL (1.5-6.6); NEUTROPHILS % (AUTO) 62.8 %; PLT - PLATELET COUNT 342 10^3/uL (130-450); RED BLOOD COUNT 4.69 10^6/uL (4.20-5.40); RED CELL DISTRIBUTION WIDTH 14.5 % (12.0-15.0); WHITE BLOOD COUNT 9.3 x10^3/uL (4.8-10.8)
[2024-02-06 16:07] LABS: ALBUMIN 4.1 g/dL (3.2-5.5); ALBUMIN/GLOBULIN RATIO 1.3 (1.0-2.2); BILIRUBIN,TOTAL 0.5 mg/dL (0.2-1.0); CALCIUM 9.9 mg/dL (8.5-10.3); CREATININE 1.3 mg/dL (0.6-1.3); TOTAL PROTEIN 7.2 g/dL (6.4-8.9)
[2024-02-06] MEDS: SODIUM CHLORIDE 0.9% 1,000 ML IV STA (16:37)
[2024-02-06] MEDS: ONDANSETRON 4 MG/2 ML VIAL IVP STA ×2 (16:40→19:07)
[2024-02-06] MEDS: KETOROLAC 15 MG/ML VIAL IVP STA (16:41)
[2024-02-06] MEDS ORDERED: iohexoL-300 100 ML VIAL ONE (16:42)
[2024-02-06] MEDS: iohexoL-300 100 ML VIAL IVP ONE (17:47)
--- NOTE | 2024-02-06 18:05 | CT Report ---
PROCEDURE: Abdomen/Pelvis W INDICATIONS: mid abd pain for 3 days CONTRAST: omni, 100 TECHNIQUE: After the administration of intravenous contrast, a CT scan of the abdomen and pelvis was performed. Images were recorded and evaluated at appropriate window settings. Reformats: coronal and sagittal. F or radiation dose reduction, the following was used: automated exposure control, adjustment of mA and /or kV according to patient size. COMPARISON: CT abdomen and pelvis 07/07/2017.. FINDINGS: Image quality: Diagnostic. Lower chest: Trace pericardial effusion, similar to 2018. No pleural effusion. Liver: No solid mass. Probable hepatic steatosis. Gallbladder: Surgically absent. Biliary tree: No intrahepatic or extrahepatic dilation, accounting for age. Spleen: No splenomegaly. Pancreas: No pancreatic ductal dilation. Adrenals: No adrenal nodule. Kidneys and ureters: No hydronephrosis. No renal cystic lesion which requires follow up. No solid mas s. Stomach, bowel and peritoneum: No gastric or small bowel dilation. No abnormal wall thickening. No pa thologic free fluid. Diverticulosis. No diverticulitis identified. Normal appendix. Lymph nodes: No central or retroperitoneal adenopathy. Vessels: No infrarenal aortic aneurysm. Mild aortic ectasia. Extensive plaque. Patent portal vein. PELVIS Reproductive organs: Anteverted uterus. Bladder: No abnormal wall thickening, accounting for underdistention. Pelvic lymph nodes: No pelvic adenopathy by size criteria. Bones: No aggressive osseous abnormality. Mild height loss at L1, unchanged. Other: No significant ventral or inguinal hernia. IMPRESSION: No acute abnormality identified. No free fluid. Reviewed by: Robert Gould MD on 02/06/2024 6:04 PM PDT Approved by: Robert Gould MD on 02/06/2024 6:04 PM PDT Station ID: [id number]
[2024-02-06] MEDS: HYDROmorphone 0.5 MG/0.5 ML SYRINGE IVP STA (19:06)
[2024-02-06] MEDS: ONDANSETRON ODT 4 MG Prepack 2 TL PRN (19:07)
[2024-02-06] MEDS: FAMOTIDINE 20 MG/2 ML VIAL IVP STA (19:07)
[2024-02-06] MEDS: DOCUSATE SODIUM 100 MG CAPSULE PO STA (19:11)
[2024-02-06 19:38] VITALS: BP 134/65; O2SAT 98
== END 2024-02-06 20:12 | disposition home or self-care (01) ==
LOC: EDUNIT# → ED 15:30
DX: R10.9 Unspecified abdominal pain (principal); R11.0 Nausea; I10 Essential (primary) hypertension; E11.9 Type 2 diabetes mellitus without complications; J44.9 Chronic obstructive pulmonary disease, unspecified; E78.00 Pure hypercholesterolemia, unspecified; Z79.02 Long term (current) use of antithrombotics/antiplatelets; F32.A Depression, unspecified; F41.9 Anxiety disorder, unspecified
CPT/HCPCS: 36415; 74177; 80053; 83690; 85025; 96374; 96375; 99284; A9270; J1170; Q9967

== ENCOUNTER 2024-07-22 23:31 | Inpatient (IN) ==
--- NOTE | 2024-07-22 23:51 | ED Physician Documentation ---
PD HPI NVD Stated complaint Stated Complaint: ABD PAIN, RT LEG PAIN, VOMITING Chief complaint Chief Complaint: Abd Pain History obtained from History obtained from: Patient (She has several complaints of continued knee and hip pain after a fall a week ago. Also having general weakness, lightheadedness, nausea and some upper abdominal pains. Right chest pain.) and EMS (EMS called for patient complaining of knee pain but they found her to be tachycardic with general weakness and difficulty standing.) Meds/Allgy Home Medications Ambulatory Orders Medication Instructions Recorded Confirmed ondansetron 4 mg disintegrating 4 mg PO Q8H PRN nausea and 05/31/24 07/20/24 tablet vomiting #14 tabs atorvastatin 20 mg tablet 20 mg PO QPM 06/03/24 07/20/24 duloxetine 60 mg capsule,delayed 120 mg PO QDAY 06/03/24 07/20/24 release losartan 50 mg tablet 50 mg PO QDAY 06/03/24 07/20/24 trazodone 100 mg tablet 300 mg PO HS 06/03/24 07/20/24 famotidine 20 mg tablet 20 mg PO DAILY #90 tabs 06/09/24 07/20/24 metoprolol succinate 25 mg 25 mg PO QDAY #90 tabs 06/09/24 07/20/24 tablet,extended release 24 hr naproxen 500 mg tablet 500 mg PO BID PRN Pain #20 tabs 07/14/24 07/20/24 Allergies Allergies Allergy/AdvReac Type Severity Reaction Status Date / Time clavulanic acid Allergy Nausea Verified 07/22/24 23:45 doxycycline Allergy Hives Verified 07/22/24 23:45 Penicillins Allergy Hives Verified 07/22/24 23:45 Sulfa (Sulfonamide Allergy Hives Verified 07/22/24 23:45 Antibiotics) PFSH Active Problems All Active Problems (Updated 07/23/24 @ 02:34 by Vasyl Covington MD) Yeast infection of the skin (Acute) Sinus tachycardia (Acute) Light-headed feeling (Acute) History of recent fall (Acute) NSAID induced gastritis (Acute) Acute knee pain (Acute) Acute anemia (Acute) Acute upper gastrointestinal bleeding (Acute) Pericardial effusion (Acute) Aneurysm of thoracic aorta (Acute) Acute hypokalemia (Acute) Tachycardia (Acute) Atypical chest pain (Acute) Dehydration (Acute) Fall at home (Acute) Acute pain of right hip (Acute) Chest pain (Acute) GERD (gastroesophageal reflux disease) (Acute) Hematemesis (Acute) History of atrial fibrillation (Acute) Vomiting (Acute) HTN (hypertension) (Acute) BMI 39.0-39.9,adult (Acute) Acute bacterial sinusitis (Acute) Medical History Medical History (Updated 07/23/24 @ 02:34 by Vasyl Covington MD) Inferolateral myocardial infarction Acute meniscal injury of right knee Stomatitis Strain of back muscle Back pain with sciatica of left side Back pain with sciatica Urinary tract infection Syncope and collapse Dehydration Moderate chronic obstructive pulmonary disease Hypokalemia Cholelithiasis Abdominal pain Biliary colic Cholecystitis Angioedema Dysphagia Narcotic withdrawal Psychiatric symptoms Bipolar I disorder, current or most recent episode depressed, in partial remission Surgical History Surgical History H/O heart artery stent RCA 2017, LAD and RCA 2021 H/O bladder repair surgery S/P carpal tunnel release S/P arthroscopy of left knee x2 Family History Family History Mother Alcoholism Anxiety Arthritis High blood pressure Cancer Father Arthritis Depressed High blood pressure Alcoholism Social History Social History (Updated 07/20/24 @ 10:49 by Donovan Pitts RN) Smoking Status: Former smoker If you are a former smoker, when did you quit? (Date/Year): Vape Tobacco How many cigarettes a day do you smoke? (20 cigarettes=1 Pk): 25 Do you dip or chew tobacco?: No Do you vape?: Yes Patient requests smoking cessation consult: No Initiate information on smoking cessation: Yes Living arrangement: At home (EMS reports unsanitary/hoarding condition in home without electricity) Living Condition: With spouse/s.o. Relationship: Physical Activity: Walking Home Mobility Equipment: Walker Do you feel safe in your home environment?: Yes Suffered physical, verbal, emotional, or financial abuse?: No History of Abuse: No ETOH Use: None Substance Use: denies use POLST Patient has POLST: No Exam Constitutional normal general appearance and abnormal body habitus (overweight) HENMT normocephalic and head/scalp atraumatic Neck/C-Spine cervical spine nontender and supple Chest right chest wall under breast tissue with demarcated deep red rash with mild excoriation and whitish discharge with some odor. No purulence per se and no redness outside of border. Appears yeast like infection. No rash nor tender wrapping to the back. Respiratory breath sounds equal bilaterally and normal respiratory effort Cardiovascular heart rate abnormal (tachycardic) and rhythm abnormal (ectopic beats) Gastrointestinal abdomen soft to palpation, tender to palpation (mild) and (epigastric), nontender to percussion and nondistended Back/Pelvis no thoracic spine tenderness, no lumbar spine tenderness, thoracic spine ROM normal and lumbar spine ROM normal Extremities bruising green/purple noted both anterior knees, with some effusion and swelling right knee. Hip with good ROM on rotation and no pain with impaction. Neurology no focal motor deficit noted and no sensory deficits noted Psychiatry mental status grossly normal, orientation abnormal (disoriented to time), thought process normal and affect normal Skin skin color normal and rash noted (under right breast as noted above. ) Results Vitals Vitals: Vital Signs - 24 hr 07/22/24 23:46 07/23/24 01:10 Temperature 36.3 C L Temperature Source Temporal Artery Scan Pulse Rate 120 H 108 H Respiratory Rate 16 20 Blood Pressure 130/59 L 105/89 O2 Saturation 100 98 O2 Source Room air Room air Pain Intensity 4 Oxygen O2 Source Room air Labs Labs: Microbiology 07/22/24 23:58 Occult Blood - Final Stool Laboratory Tests 07/23/24 00:12 WBC 11.1 H RBC 3.62 L Hgb 10.4 L Hct 32.6 L MCV 90.1 MCH 28.7 MCHC 31.9 L RDW 15.4 H Plt Count 229 MPV 10.4 Neut # (Auto) 7.7 H Lymph # (Auto) 2.3 [place] # (Auto) 0.6 Eos # (Auto) 0.3 Baso # (Auto) 0.1 Absolute Nucleated RBC 0.00 Nucleated RBC % 0.0 Sodium 141 Potassium 3.1 L Chloride 111 Carbon Dioxide 18 L Anion Gap 12.0 BUN 54 H Creatinine 1.0 Estimated GFR (MDRD) 54 L Glucose 101 Calcium 9.0 Magnesium 1.8 Total Bilirubin 0.5 AST 29 ALT 71 H Alkaline Phosphatase 67 Total Protein 5.9 L Albumin 3.4 Globulin 2.5 Albumin/Globulin Ratio 1.4 Lipase < 10 L TSH 1.52 Rads (name of study) right knee: Relevant Findings:: Final report received and EMP independent interpretation of test (tricarpartment arthritis. No fractures.) PD Medical Decision Making ED course Complexity details: considered differential (weakness, upper abd pains. Recent fall 9 days ago. Rx Naproxen for pains. Is tachycardic but adequate BP. ), d/w patient and d/w sec reporting consultant (hospitalist) ED course: She has several concurrent problems. She has pain with some swelling in the right knee with some green-yellow bruising anteriorly related to a fall on July 14. She complains of pain and they are with walking. Also pain in the right hip. She had been seen on the after the fall with negative hip x- ray. Prescribed naproxen twice daily which she is taking. Having knee pain more now and we did x-ray that tonight which showed arthritis but no fractures. Regarding the upper abdominal discomfort and nausea, her gallbladder has been removed previously. Her liver enzymes and lipase are normal. Her blood count from 3 days ago to today has dropped from 13-10 hemoglobin. She was seen on July 20 for weakness, chest discomfort and pain on the right side. She had workup including EKG and troponin chest x-ray and CT of the chest angiogram. No blood clots were seen. 4.3 cm thoracic aneurysm without any problems. Incidental mild pericardial effusion. She continues with the right chest pain. Under her right breast is a significant rash that looks yeastlike with some mild white exudate. We can treat for yeast. I did do a culture to see if there is concurrent bacterial infection. It is demarcated under the breast fold and does not wrap to the back. Does not look like shingles. We will cleanse it and apply some antibiotic correction antifungal ointment as well. She had been using some hydrocortisone. Her abdominal discomfort associated with nausea now I think is related to a gastritis with GI bleed. We do know she has dropped her blood count 3 points hemoglobin in 3 days. She is dark stool but not true melena diarrhea per se. It is markedly guaiac positive. I believe she needs sequential hemoglobins to evaluate the rate of bleeding and to start on PPIs and to stop the NSAIDs. I wi ll talk with the hospitalist regarding this. Signs of this being potentially more significant are the tachycardia and the subjective lightheadedness. Blood pressure is adequate but currently 130/59 so some mild diastolic hypotension. She is given 2 L IV fluid sequentially. Pantoprazole given IV and some Mylanta p.o. Discharge Plan Discharge Patient Disposition: ED Place in Observation Condition: Stable Clinical Impression: Acute upper gastrointestinal bleeding, Acute anemia, NSAID induced gastritis, H istory of recent fall, Light-headed feeling, Sinus tachycardia, Yeast infection of the skin Acute knee pain Qualifiers: Laterality: right Qualified Code(s): M25.561 - Pain in right knee Prescriptions: No Action losartan 50 mg tablet 50 mg PO QDAY atorvastatin 20 mg tablet 20 mg PO QPM Patient Comments: take 1 tablet by mouth once daily ondansetron 4 mg tablet,disintegrating 4 mg PO Q8H PRN (Reason: nausea and vomiting) Qty: 14 0RF naproxen 500 mg tablet 500 mg PO BID PRN (Reason: Pain) Qty: 20 0RF trazodone 100 mg tablet 300 mg PO HS duloxetine 60 mg capsule,delayed release(DR/EC) 120 mg PO QDAY metoprolol succinate 25 mg tablet extended release 24 hr 25 mg PO QDAY Qty: 90 3RF famotidine 20 mg tablet 20 mg PO DAILY Qty: 90 3RF Print Language: Lithuanian Stand Alone Forms: PCP List
[2024-07-23] MEDS: SODIUM CHLORIDE 0.9% 1,000 ML IV STA ×2 (00:09→01:32)
[2024-07-23 00:18] LABS: BASOPHILS # (AUTO) 0.1 10^3/uL (0.0-0.1); BASOPHILS % (AUTO) 0.6 %; EOSINOPHILS # (AUTO) 0.3 10^3/uL (0.0-0.7); EOSINOPHILS % (AUTO) 2.8 %; HCT - HEMATOCRIT 32.6 % (37.0-47.0); HGB - HEMOGLOBIN 10.4 g/dL (12.0-16.0); LYMPHOCYTES # (AUTO) 2.3 10^3/uL (1.5-3.5); LYMPHOCYTES % (AUTO) 20.8 %; MEAN CORPUSCULAR HEMOGLOBIN 28.7 pg (27.0-31.0); MEAN CORPUSCULAR HGB CONC 31.9 g/dL (32.0-36.0); MEAN CORPUSCULAR VOLUME 90.1 fL (81.0-99.0); MEAN PLATELET VOLUME 10.4 fL (7.9-10.8); MONOCYTES # (AUTO) 0.6 10^3/uL (0.0-1.0); MONOCYTES % (AUTO) 5.6 %; NEUTROPHILS # (AUTO) 7.7 10^3/uL (1.5-6.6); NEUTROPHILS % (AUTO) 69.6 %; PLT - PLATELET COUNT 229 10^3/uL (130-450); RED BLOOD COUNT 3.62 10^6/uL (4.20-5.40); RED CELL DISTRIBUTION WIDTH 15.4 % (12.0-15.0); WHITE BLOOD COUNT 11.1 x10^3/uL (4.8-10.8)
--- NOTE | 2024-07-23 00:36 | XRAY Report ---
PROCEDURE: XR Knee 3V RT INDICATIONS: fall, knee pain, bruised TECHNIQUE: 4 views of the knee(s) were acquired. COMPARISON: 09/11/2023. FINDINGS: Bones: No fractures or dislocations. Moderate to severe tricompartmental osteoarthritis is seen more notably medial femoral tibial compartment. No significant patellar subluxation. No suspicious bony l esions. Soft tissues: No knee joint effusion. No suspicious soft tissue calcifications or masses. IMPRESSION: No acute right knee fracture or dislocation. No significant joint effusion. Moderate to severe tricompartmental osteoarthritis more notably in medial femoral tibial compartment. Reviewed by: Parth Elliott MD on 07/23/2024 12:35 AM PST Approved by: Parth Elliott MD on 07/23/2024 12:35 AM PST Station ID: [id number]
[2024-07-23 00:45] LABS: MAGNESIUM 1.8 mg/dL (1.7-2.3)
[2024-07-23 00:51] LABS: ALBUMIN 3.4 g/dL (3.2-5.5); ALBUMIN/GLOBULIN RATIO 1.4 (1.0-2.2); ALKALINE PHOSPHATASE 67 IU/L (42-121); ALT ALANINE AMINOTRANSFERASE 71 IU/L (10-60); AST ASPARTATE AMINOTRANSFERASE 29 IU/L (10-42); BILIRUBIN,TOTAL 0.5 mg/dL (0.2-1.0); BUN - BLOOD UREA NITROGEN 54 mg/dL (6-20); CARBON DIOXIDE - CO2 18 mmol/L (21-32); CHLORIDE 111 mmol/L (101-111); GFR - MDRD 54 (>89); GLUCOSE 101 mg/dL (74-104); POTASSIUM 3.1 mmol/L (3.5-4.5); SODIUM 141 mmol/L (135-145); TOTAL PROTEIN 5.9 g/dL (6.4-8.9)
[2024-07-23 00:59] LABS: LIPASE < 10 U/L (11-82)
[2024-07-23] MEDS: PANTOPRAZOLE 40 MG VIAL IVP STA (01:26)
[2024-07-23 01:27] LABS: THYROID STIMULATING HORMONE 1.52 uIU/mL (0.34-5.60)
[2024-07-23] MEDS: MAG HYDROX/AL HYDROX/SIMETH 30 ML UDC PO STA (01:27)
[2024-07-23] MEDS: FLUCONAZOLE 100 MG TABLET PO STA (01:28)
[2024-07-23] MEDS ORDERED: SODIUM CHLORIDE FLUSH 0.9% 10 ML SYRINGE IVP PRN (03:03)
--- NOTE | 2024-07-23 03:41 | HISTORY & PHYSICAL EXAMINATION ---
Chief Complaint Chief Complaint Chief Complaint: abd pain History of Present Illness Admitted From Admitted From:: home History Obtained From Records Reviewed: prior [facility] visits History obtained from: patient Exam Limitations: telemedicine History of Present Illness HPI Comment/Other: Ms Hernandez is a 73 yo F with hx HTN, HLD, depression/anxiety. Presents to the ER with complaints of nausea, vomiting and upper abdominal discomfort. Onset of symptoms was earlier this morning (07/22), patient reports she vomited multiple times at home, she did not clearly see the color/texture of the emesis because it was dark in her home, but does not recall seeing any gillian bloody output. She reports her bowel movement today was normal, denies melena/dark tarry stool, or hematochezia. She was also having some upper abdominal discomfort, which is currently resolved if she lays still. She denies fevers, chills, chest pain, shortness of breath, palpitations. Denies prior history of GI bleed, reports recent colonoscopy, results unknown. She has been having ongoing right knee pain since her fall last week on 07/14, she has been taking the Naproxen that was prescribed for pain control. No other NSAID or ASA that she is aware of - but she does not recall the names of the medications that she takes at home. Right knee XR today shows mod-severe OA, no fractures. Hgb 13 -> 10. Review of Systems Status of ROS: 10 or more systems reviewed and unremarkable except as noted in history and below and See HPI Gastrointestinal Reports: Abdominal pain, Nausea and Vomiting Musculoskeletal Reports: Joint pain Hematologic/Lymphatic Reports: Anemia PFSH Active Problems All Active Problems (Updated 07/23/24 @ 02:34 by Vasyl Covington MD) Yeast infection of the skin (Acute) Sinus tachycardia (Acute) Light-headed feeling (Acute) History of recent fall (Acute) NSAID induced gastritis (Acute) Acute knee pain (Acute) Acute anemia (Acute) Acute upper gastrointestinal bleeding (Acute) Pericardial effusion (Acute) Aneurysm of thoracic aorta (Acute) Acute hypokalemia (Acute) Tachycardia (Acute) Atypical chest pain (Acute) Dehydration (Acute) Fall at home (Acute) Acute pain of right hip (Acute) Chest pain (Acute) GERD (gastroesophageal reflux disease) (Acute) Hematemesis (Acute) History of atrial fibrillation (Acute) Vomiting (Acute) HTN (hypertension) (Acute) BMI 39.0-39.9,adult (Acute) Acute bacterial sinusitis (Acute) Medical History Medical History (Updated 07/23/24 @ 02:34 by Vasyl Covington MD) Inferolateral myocardial infarction Acute meniscal injury of right knee Stomatitis Strain of back muscle Back pain with sciatica of left side Back pain with sciatica Urinary tract infection Syncope and collapse Dehydration Moderate chronic obstructive pulmonary disease Hypokalemia Cholelithiasis Abdominal pain Biliary colic Cholecystitis Angioedema Dysphagia Narcotic withdrawal Psychiatric symptoms Bipolar I disorder, current or most recent episode depressed, in partial remission Surgical History Surgical History H/O heart artery stent RCA 2017, LAD and RCA 2021 H/O bladder repair surgery S/P carpal tunnel release S/P arthroscopy of left knee x2 Family History Family History Mother Alcoholism Anxiety Arthritis High blood pressure Cancer Father Arthritis Depressed High blood pressure Alcoholism Social History Social History (Updated 07/20/24 @ 10:49 by Donovan Pitts, RN) Smoking Status: Former smoker If you are a former smoker, when did you quit? (Date/Year): Vape Tobacco How many cigarettes a day do you smoke? (20 cigarettes=1 Pk): 25 Do you dip or chew tobacco?: No Do you vape?: Yes Patient requests smoking cessation consult: No Initiate information on smoking cessation: Yes Living arrangement: At home (EMS reports unsanitary/hoarding condition in home without electricity) Living Condition: With spouse/s.o. Relationship: Physical Activity: Walking Home Mobility Equipment: Walker Do you feel safe in your home environment?: Yes Suffered physical, verbal, emotional, or financial abuse?: No History of Abuse: No ETOH Use: None Substance Use: denies use POLST Patient has POLST: No Meds/Allgy Home Medications Ambulatory Orders Medication Instructions Recorded Confirmed ondansetron 4 mg disintegrating 4 mg PO Q8H PRN nausea and 05/31/24 07/20/24 tablet vomiting #14 tabs atorvastatin 20 mg tablet 20 mg PO QPM 06/03/24 07/20/24 duloxetine 60 mg capsule,delayed 120 mg PO QDAY 06/03/24 07/20/24 release losartan 50 mg tablet 50 mg PO QDAY 06/03/24 07/20/24 trazodone 100 mg tablet 300 mg PO HS 06/03/24 07/20/24 famotidine 20 mg tablet 20 mg PO DAILY #90 tabs 06/09/24 07/20/24 metoprolol succinate 25 mg 25 mg PO QDAY #90 tabs 06/09/24 07/20/24 tablet,extended release 24 hr naproxen 500 mg tablet 500 mg PO BID PRN Pain #20 tabs 07/14/24 07/20/24 Allergies Allergies Allergy/AdvReac Type Severity Reaction Status Date / Time clavulanic acid Allergy Nausea Verified 07/22/24 23:45 doxycycline Allergy Hives Verified 07/22/24 23:45 Penicillins Allergy Hives Verified 07/22/24 23:45 Sulfa (Sulfonamide Allergy Hives Verified 07/22/24 23:45 Antibiotics) Exam Constitutional normal general appearance, no apparent distress and alert HENMT normocephalic, head/scalp atraumatic and hearing grossly normal bilaterally Respiratory normal respiratory effort Cardiovascular heart rate abnormal (tachycardic) (HR 107 on vitals ) Gastrointestinal abdomen normal to inspection Neurology no movement abnormality noted and no focal motor deficit noted Psychiatry mental status grossly normal, oriented x3, thought process normal and cooperative Skin skin color normal and no rash (intertrigo rash noted below R breast by ER physician) Conclusion/Plan Lab Results Lab results reviewed: Yes 07/23/24 00:12 07/23/24 00:12 Diagnostic Imaging Results Diagnostic Imaging Results: positive Final report reviewed Other Other Results/Comments: Assessment/Plan: Acute blood loss anemia Suspected upper GI bleed -Patient presents with nausea, vomiting, guaiac positive stool in ER -In setting of naproxen use -Hgb 13 -> 10 over three days, noted elevated BUN -No indication for transfusion at this time -IV PPI BID -Continue to trend H&H q6h -DC NSAIDs -NPO -GI consult in a.m. HTN -Currently BP stable, will hold PO antihypertensives for now pending Hgb/clinical course Right knee pain s/p GLF 07/14 -Mod-severe OA on XR, no significant effusion or fracture on XR -Lidocaine patch -Tylenol PRN Depression/anxiety -Patient does not recall her current meds - thinks she has been off of the Cymbalta -Med rec in a.m. and resume home medications pending verification HLD -Continue statin DVT ppx: SCDs Core Measures DVT/VTE - Prophylaxis VTE/DVT Device ordered at admit?: Yes Telemedicine Consult Details Provider Location & Consult Time Telemedicine consultation conducted via videoconferencing?: Yes List names and roles of persons who participated in consult:: Alycia RODGERS, patient, ER provider (phone) Telemedicine provider location:: [facility]
[2024-07-23] MEDS: HYDROmorphone 0.5 MG/0.5 ML SYRINGE IVP PRN (04:49)
[2024-07-23] MEDS: PANTOPRAZOLE 40 MG VIAL IVP SCH (08:09)
[2024-07-23] MEDS: SODIUM CHLORIDE FLUSH 0.9% 10 ML SYRINGE IVP SCH (08:10)
[2024-07-23] MEDS: HYDROcod/ACETAM 5/325 MG TABLET PO PRN (10:07)
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
[2024-07-23 13:22] LABS: IRON < 10 ug/dL (50-212); TOTAL IRON BINDING CAPACITY 193 ug/dL (250-450); TRANSFERRIN 138 mg/dL (203-362)
[2024-07-23] MEDS: POTASSIUM CHLORIDE 20 MEQ TABLET PO ONE (14:03)
[2024-07-23] MEDS: CLOTRIMAZOLE/BETAMETHASONE 15 GM TUBE TOP SCH (14:04)
--- NOTE | 2024-07-23 14:05 | PHARMACY PROGRESS NOTE ---
Best Possible Medication History Admit Date and Time: 07/23/24 0303 Home Medications Medication Instructions Recorded Confirmed Type atorvastatin 20 mg tablet 20 mg PO QPM 06/03/24 07/23/24 History duloxetine 60 mg capsule,delayed 120 mg PO QDAY 06/03/24 07/23/24 History release losartan 50 mg tablet 50 mg PO QDAY 06/03/24 07/23/24 History famotidine 20 mg tablet 20 mg PO DAILY #90 tabs 06/09/24 07/23/24 Rx metoprolol succinate 25 mg 25 mg PO QDAY #90 tabs 06/09/24 07/23/24 Rx tablet,extended release 24 hr albuterol sulfate 90 mcg/actuation 2 inh inhalation QID PRN shortness 07/23/24 07/23/24 History aerosol inhaler of breath or wheezing clopidogrel 75 mg tablet 75 mg PO ONCE 07/23/24 07/23/24 History lurasidone 80 mg tablet 80 mg PO QPM 07/23/24 07/23/24 History Processed by: Pharmacy Medications reviewed in ED?: No Medication History completed: Yes Patient Interview: Completed Secondary Source(s): Insurance records [facility] Statement: Pt interview with [employer] [facility] records on hand. As the person ultimately responsible for medication therapy, providers are able to order a medication from an existing home medication list in [facility] via the "Reconcile Routine" prior to Confirmation of that medication by decision support analyst. Such practice is discouraged except when the physician, in their clinical judgment, deems that a medical need exists for a medication without regard to previous use.
--- NOTE | 2024-07-23 14:36 | ANESTHESIA PROCEDURE NOTE ---
Pre-Anesthesia VS, & Labs Diagnosis Surgical Diagnosis:: falls Procedure Procedure: EGD Vitals Vital Signs: Temp Pulse Resp BP Pulse Ox 36.5 C 96 20 136/64 H 98 07/23/24 09:10 07/23/24 09:10 07/23/24 09:10 07/23/24 09:10 07/23/24 09:10 Height (in): 5 ft 6 in Weight (kg): 90 kg Body Mass Index: 32.0 BMI Classification: Obese NPO NPO: >8 hours Is Patient ?: No Lab Results Current Lab Results: Laboratory Tests 07/23/24 13:00: Hgb 8.6 L, Iron < 10 L, TIBC 193 L, % Saturation TNP, T ransferrin 138 L 07/23/24 07:00: Hgb 9.4 L 07/23/24 00:12: WBC 11.1 H, RBC 3.62 L, Hgb 10.4 L, Hct 32.6 L, MCV 90.1, MCH 28.7, MCHC 31.9 L, RDW 15.4 H, Plt Count 229, MPV 10.4, Neut # (Auto) 7.7 H, Lymph # (Auto) 2.3, [place] # (Auto) 0.6, Eos # (Auto) 0.3, Baso # (Auto) 0.1, Absolute Nucleated RBC 0.00, Nucleated RBC % 0.0, Sodium 141, Potassium 3.1 L, Chloride 111, Carbon Dioxide 18 L, Anion Gap 12.0, BUN 54 H, Creatinine 1.0, E stimated GFR (MDRD) 54 L, Glucose 101, Calcium 9.0, Magnesium 1.8, Total Bilirubin 0.5, AST 29, ALT 71 H, Alkaline Phosphatase 67, Total Protein 5.9 L, Albumin 3.4, Globulin 2.5, Albumin/Globulin Ratio 1.4, Lipase < 10 L, TSH 1.52 Lab results reviewed: Yes 07/23/24 13:00 07/23/24 00:12 Meds/Allgy Home Medications Ambulatory Orders Medication Instructions Recorded Confirmed atorvastatin 20 mg tablet 20 mg PO QPM 06/03/24 07/23/24 duloxetine 60 mg capsule,delayed 120 mg PO QDAY 06/03/24 07/23/24 release losartan 50 mg tablet 50 mg PO QDAY 06/03/24 07/23/24 famotidine 20 mg tablet 20 mg PO DAILY #90 tabs 06/09/24 07/23/24 metoprolol succinate 25 mg 25 mg PO QDAY #90 tabs 06/09/24 07/23/24 tablet,extended release 24 hr acetaminophen 325 mg tablet 650 mg PO Q6H PRN fever or pain 07/23/24 07/23/24 albuterol sulfate 90 mcg/actuation 2 inh inhalation QID PRN shortness 07/23/24 07/23/24 aerosol inhaler of breath or wheezing clopidogrel 75 mg tablet 75 mg PO ONCE 07/23/24 07/23/24 diphenhydramine HCl 25 mg capsule 50 mg PO .QHS 07/23/24 07/23/24 (Benadryl) lurasidone 80 mg tablet 80 mg PO QPM 07/23/24 07/23/24 Allergies Allergies Allergy/AdvReac Type Severity Reaction Status Date / Time clavulanic acid Allergy Nausea Verified 07/22/24 23:45 doxycycline Allergy Hives Verified 07/22/24 23:45 Penicillins Allergy Hives Verified 07/22/24 23:45 Sulfa (Sulfonamide Allergy Hives Verified 07/22/24 23:45 Antibiotics) PFSH Active Problems All Active Problems Yeast infection of the skin (Acute) Sinus tachycardia (Acute) Light-headed feeling (Acute) History of recent fall (Acute) NSAID induced gastritis (Acute) Acute knee pain (Acute) Acute anemia (Acute) Acute upper gastrointestinal bleeding (Acute) Pericardial effusion (Acute) Aneurysm of thoracic aorta (Acute) Acute hypokalemia (Acute) Tachycardia (Acute) Atypical chest pain (Acute) Dehydration (Acute) Fall at home (Acute) Acute pain of right hip (Acute) Chest pain (Acute) GERD (gastroesophageal reflux disease) (Acute) Hematemesis (Acute) History of atrial fibrillation (Acute) Vomiting (Acute) HTN (hypertension) (Acute) BMI 39.0-39.9,adult (Acute) Acute bacterial sinusitis (Acute) Medical History Medical History Inferolateral myocardial infarction Acute meniscal injury of right knee Stomatitis Strain of back muscle Back pain with sciatica of left side Back pain with sciatica Urinary tract infection Syncope and collapse Dehydration Moderate chronic obstructive pulmonary disease Hypokalemia Cholelithiasis Abdominal pain Biliary colic Cholecystitis Angioedema Dysphagia Narcotic withdrawal Psychiatric symptoms Bipolar I disorder, current or most recent episode depressed, in partial remission Surgical History Surgical History H/O heart artery stent RCA 2017, LAD and RCA 2021 H/O bladder repair surgery S/P carpal tunnel release S/P arthroscopy of left knee x2 Family History Family History Mother Alcoholism Anxiety Arthritis High blood pressure Cancer Father Arthritis Depressed High blood pressure Alcoholism Social History Social History Smoking Status: Former smoker If you are a former smoker, when did you quit? (Date/Year): Vape Tobacco How many cigarettes a day do you smoke? (20 cigarettes=1 Pk): 25 Second hand tobacco smoke exposure: No Do you dip or chew tobacco?: No Do you vape?: Yes Patient requests smoking cessation consult: No Initiate information on smoking cessation: Yes Living arrangement: At home (EMS reports unsanitary/hoarding condition in home without electricity) Living Condition: With spouse/s.o. Relationship: Physical Activity: Walking Level: Assisted Home Mobility Equipment: Cane and Walker Do you feel safe in your home environment?: Yes Suffered physical, verbal, emotional, or financial abuse?: No History of Abuse: No ETOH Use: None Substance Use: denies use POLST Patient has POLST: No POLST Status: Full Code Anesthesia Exam (Expanded) Exam General: Alert and No acute distress Dental: Other (no teeth, except one on each) Mouth Openin Fingerbreadth Neck Mobility: Normal Mallampati classification: II Thyromental Distance: 4-6 cm Plan Plan Anesthesia Type: Total IV Consent for Procedure(s) Verified and Reviewed: Yes Code Status: Attempt Resuscitation ASA Classification ASA classification: 3-Severe systemic disease Is this case an emergency?: No
--- NOTE | 2024-07-23 15:18 | CONSULTATION NOTE ---
Chief Complaint Chief Complaint Chief Complaint: abdominal pain and n/v History of Present Illness Admitted From Admitted From:: ed History Obtained From Records Reviewed: yes History obtained from: pt Exam Limitations: none History of Present Illness HPI Comment/Other: 3 days upper abdominal pain with n/v. been taking nsaids. found to have new anemia. consult for egd Meds/Allgy Home Medications Ambulatory Orders Medication Instructions Recorded Confirmed atorvastatin 20 mg tablet 20 mg PO QPM 06/03/24 07/23/24 duloxetine 60 mg capsule,delayed 120 mg PO QDAY 06/03/24 07/23/24 release losartan 50 mg tablet 50 mg PO QDAY 06/03/24 07/23/24 famotidine 20 mg tablet 20 mg PO DAILY #90 tabs 06/09/24 07/23/24 metoprolol succinate 25 mg 25 mg PO QDAY #90 tabs 06/09/24 07/23/24 tablet,extended release 24 hr acetaminophen 325 mg tablet 650 mg PO Q6H PRN fever or pain 07/23/24 07/23/24 albuterol sulfate 90 mcg/actuation 2 inh inhalation QID PRN shortness 07/23/24 07/23/24 aerosol inhaler of breath or wheezing clopidogrel 75 mg tablet 75 mg PO ONCE 07/23/24 07/23/24 diphenhydramine HCl 25 mg capsule 50 mg PO .QHS 07/23/24 07/23/24 (Benadryl) lurasidone 80 mg tablet 80 mg PO QPM 07/23/24 07/23/24 Allergies Allergies Allergy/AdvReac Type Severity Reaction Status Date / Time clavulanic acid Allergy Nausea Verified 07/22/24 23:45 doxycycline Allergy Hives Verified 07/22/24 23:45 Penicillins Allergy Hives Verified 07/22/24 23:45 Sulfa (Sulfonamide Allergy Hives Verified 07/22/24 23:45 Antibiotics) PFSH Active Problems All Active Problems (Updated 07/23/24 @ 15:10 by FRANCISCO Bolton) Depression with anxiety (Acute) Iron deficiency anemia (Acute) Yeast infection of the skin (Acute) Sinus tachycardia (Acute) Light-headed feeling (Acute) History of recent fall (Acute) NSAID induced gastritis (Acute) Acute knee pain (Acute) Acute anemia (Acute) Acute upper gastrointestinal bleeding (Acute) Pericardial effusion (Acute) Aneurysm of thoracic aorta (Acute) Acute hypokalemia (Acute) Tachycardia (Acute) Atypical chest pain (Acute) Dehydration (Acute) Fall at home (Acute) Acute pain of right hip (Acute) Chest pain (Acute) GERD (gastroesophageal reflux disease) (Acute) Hematemesis (Acute) History of atrial fibrillation (Acute) Vomiting (Acute) HTN (hypertension) (Acute) BMI 39.0-39.9,adult (Acute) Acute bacterial sinusitis (Acute) Medical History Medical History Inferolateral myocardial infarction Acute meniscal injury of right knee Stomatitis Strain of back muscle Back pain with sciatica of left side Back pain with sciatica Urinary tract infection Syncope and collapse Dehydration Moderate chronic obstructive pulmonary disease Hypokalemia Cholelithiasis Abdominal pain Biliary colic Cholecystitis Angioedema Dysphagia Narcotic withdrawal Psychiatric symptoms Bipolar I disorder, current or most recent episode depressed, in partial remission Surgical History Surgical History H/O heart artery stent RCA 2017, LAD and RCA 2021 H/O bladder repair surgery S/P carpal tunnel release S/P arthroscopy of left knee x2 Family History Family History Mother Alcoholism Anxiety Arthritis High blood pressure Cancer Father Arthritis Depressed High blood pressure Alcoholism Social History Social History Smoking Status: Former smoker If you are a former smoker, when did you quit? (Date/Year): Vape Tobacco How many cigarettes a day do you smoke? (20 cigarettes=1 Pk): 25 Second hand tobacco smoke exposure: No Do you dip or chew tobacco?: No Do you vape?: Yes Patient requests smoking cessation consult: No Initiate information on smoking cessation: Yes Living arrangement: At home (EMS reports unsanitary/hoarding condition in home without electricity) Living Condition: With spouse/s.o. Relationship: Physical Activity: Walking Level: Assisted Home Mobility Equipment: Cane and Walker Do you feel safe in your home environment?: Yes Suffered physical, verbal, emotional, or financial abuse?: No History of Abuse: No ETOH Use: None Substance Use: denies use POLST Patient has POLST: No POLST Status: Full Code Results Lab Results Lab results reviewed: Yes 07/23/24 13:00 07/23/24 00:12 Other Lab Results: Lab Results x24hrs 07/23/24 07/23/24 07/23/24 Range/Units 13:00 07:00 00:12 WBC 11.1 H (4.8-10.8) x10^3/uL RBC 3.62 L (4.20-5.40) 10^6/uL Hgb 8.6 L 9.4 L 10.4 L (12.0-16.0) g/dL Hct 32.6 L (37.0-47.0) % MCV 90.1 (81.0-99.0) fL MCH 28.7 (27.0-31.0) pg MCHC 31.9 L (32.0-36.0) g/dL RDW 15.4 H (12.0-15.0) % Plt Count 229 (130-450) 10^3/uL MPV 10.4 (7.9-10.8) fL Neut # (Auto) 7.7 H (1.5-6.6) 10^3/uL Lymph # (Auto) 2.3 (1.5-3.5) 10^3/uL [place] # (Auto) 0.6 (0.0-1.0) 10^3/uL Eos # (Auto) 0.3 (0.0-0.7) 10^3/uL Baso # (Auto) 0.1 (0.0-0.1) 10^3/uL Absolute Nucleated RBC 0.00 x10^3/uL Nucleated RBC % 0.0 /100WBC Sodium 141 (135-145) mmol/L Potassium 3.1 L (3.5-4.5) mmol/L Chloride 111 (101-111) mmol/L Carbon Dioxide 18 L (21-32) mmol/L Anion Gap 12.0 (6-13) BUN 54 H (6-20) mg/dL Creatinine 1.0 (0.6-1.3) mg/dL Estimated GFR (MDRD) 54 L (>89) Glucose 101 (74-104) mg/dL Calcium 9.0 (8.5-10.3) mg/dL Magnesium 1.8 (1.7-2.3) mg/dL Iron < 10 L (50-212) ug/dL TIBC 193 L (250-450) ug/dL % Saturation TNP Transferrin 138 L (203-362) mg/dL Total Bilirubin 0.5 (0.2-1.0) mg/dL AST 29 (10-42) IU/L ALT 71 H (10-60) IU/L Alkaline Phosphatase 67 (42-121) IU/L Total Protein 5.9 L (6.4-8.9) g/dL Albumin 3.4 (3.2-5.5) g/dL Globulin 2.5 (2.1-4.2) g/dL Albumin/Globulin Ratio 1.4 (1.0-2.2) Lipase < 10 L (11-82) U/L TSH 1.52 (0.34-5.60) uIU/mL Review of Systems Status of ROS: 10 or more systems reviewed and unremarkable except as noted in history and below Exam Constitutional normal general appearance and no apparent distress HENMT normocephalic and head/scalp atraumatic Eyes PERRL, EOMs intact bilaterally and no scleral icterus Neck/C-Spine trachea midline Respiratory normal respiratory effort Gastrointestinal nondistended Neurology speech normal and GCS 15 Psychiatry oriented x3, thought process normal, cooperative, affect normal and memory normal Conclusion/Plan Problem List (1) Acute upper gastrointestinal bleeding: Plan: egd with biopsies. parq held and consent obtained (2) Iron deficiency anemia: (3) Depression with anxiety: (4) HTN (hypertension): Qualifiers: Hypertension type: primary hypertension Qualified Code(s): I10 - Essential (primary) hypertension (5) Acute knee pain: Qualifiers: Laterality: right Qualified Code(s): M25.561 - Pain in right knee Lab Results Lab results reviewed: Yes 07/23/24 13:00 07/23/24 00:12
--- NOTE | 2024-07-23 15:24 | OT Plan of Care ---
OT Plan of Care OT Plan of Care: Diagnosis Diagnosis ? GIB Chief Complaint N/V; abdominal pain Onset of Chief Complaint 24 hrs prior to admission Surgical History (Updated 06/03/24 @ 08:15 by Gina Jose LPN) H/O heart artery stent RCA 2017, LAD and RCA 2021 H/O bladder repair surgery S/P carpal tunnel release S/P arthroscopy of left knee x2 Medical History (Updated 07/23/24 @ 15:10 by FRANCISCO Bolton) Inferolateral myocardial infarction Acute meniscal injury of right knee Stomatitis Strain of back muscle Back pain with sciatica of left side Back pain with sciatica Urinary tract infection Syncope and collapse Dehydration Moderate chronic obstructive pulmonary disease Hypokalemia Cholelithiasis Abdominal pain Biliary colic Cholecystitis Angioedema Dysphagia Narcotic withdrawal Psychiatric symptoms Bipolar I disorder, current or most recent episode depressed, in partial rem ission Assessment Assessment 73 yo F with hx HTN, HLD, depression/anxiety. Presents to the ER with complaints of nausea, vomiting and upper abdominal discomfort. C/o R knee pain in which she has been taking high doses of Naproxen. Right knee XR today shows mod -severe OA, no fractures. H&H stable. Planned EGD today 07/23. OT eval consult per MD. Pt met supine in bed, A&ox4, follows all commands appropriately. Performed supine to sit, sit to stand, and ambulation 15ft to/from bathroom using RW CGA Currently CG ADLs with increased time and cues for safety. Pt fatigued and requires rest breaks. No bucking of R knee noted with mobility and ADLs no rated pain by patient. Overall presents with decreased endurance, activity tolerance and ADL status. Will benefit from cont OT services during acute stay. Rec d/c home with 24 hr assist and HH services to support functional indp and safety. Goals - Activities of Daily Living Improve Upper Extremity Modified Independent Dressing to: Improve Lower Extremity Modified Independent Dressing to: Improve Grooming/Hygiene to: Modified Independent Improve Bathing to: Modified Independent Improve Toileting to: Modified Independent Plan Treatment Frequency 1x/day Duration Until discharge -Discharge Recommendations Discharge Location Previous Living Situation Support/Services Needed Home Health O.T. Transport Needs at Discharge Personal vehicle Comment PT/OT services
[2024-07-23] MEDS ORDERED: LIDOCAINE-PF 2% 10 ML AMP SUBQ ONE (15:40)
[2024-07-23] MEDS ORDERED: PROPOFOL 200 MG/20 ML VIAL IVP ONE (15:41)
--- NOTE | 2024-07-23 16:21 | OPERATIVE REPORT ---
Operative Report General Admit Date: 07/23/24 Procedure Data: Operation Date: 07/23/24 15:15 Proposed Procedures p Esophagogastroduodenoscopy(Not Applicable) - Leobardo Crawford MD Actual Procedures p Esophagogastroduodenoscopy W/BIOPSIES(Not Applicable) - Leobardo Crawford MD Anesthesia Type General Case Staff Anesthesia Provider: Valdemar Mullins Case Times Procedure Start: 07/23/24 15:57 Procedure End: 07/23/24 16:06 Time out: 07/23/24 15:56 Pre-Op Diagnosis: nausea, vomiting, and new anemia Post Op Diagnosis: mild gastritis and duodenitis Procedure Note Pathology: antrum stomach and esophagus Indications: as above Findings: normal appearing esophagus with exception white exudate lower 1/3. biopsied mild gastritis antrum and duodenum with significant erosions. no blood or bleeding Complications: none
--- NOTE | 2024-07-23 16:35 | ANESTHESIA POST OP EVALUATION ---
Anesthesia Post Eval Post Anesthesia Eval Vitals: Last Vital Signs Temp 36.4 C L 07/23/24 16:03 Pulse 84 07/23/24 16:03 Resp 20 07/23/24 16:03 BP 144/61 H 07/23/24 16:03 Pulse Ox 96 07/23/24 16:03 CV Function Including HR & BP: Stable Pain Control: Satisfactory Nausea & Vomiting: Negative Mental Status: Baseline Respiratory Status: Airway Patent Hydration Status: Satisfactory Anesthesia Complications: None
[2024-07-23] MEDS: ATORVASTATIN 10 MG TABLET PO SCH (20:54)
[2024-07-23] MEDS: SUCRALFATE 1 GM/10 ML UDC PO SCH (21:57)
[2024-07-23] MEDS: FERRIC GLUCONATE 125 MG in SODIUM CHLORIDE 0.9% 100ML 100 ML IV ONE (23:47)
[2024-07-24] MEDS: ONDANSETRON 4 MG/2 ML VIAL IVP PRN (01:50)
[2024-07-24] MEDS: MELATONIN 3 MG TABLET PO SCH (03:24)
[2024-07-24 05:54] LABS: BASOPHILS % (AUTO) 0.6 %; EOSINOPHILS # (AUTO) 0.3 10^3/uL (0.0-0.7); EOSINOPHILS % (AUTO) 6.4 %; HGB - HEMOGLOBIN 7.9 g/dL (12.0-16.0); LYMPHOCYTES # (AUTO) 1.7 10^3/uL (1.5-3.5); LYMPHOCYTES % (AUTO) 33.1 %; MEAN CORPUSCULAR HGB CONC 31.6 g/dL (32.0-36.0); MEAN CORPUSCULAR VOLUME 91.9 fL (81.0-99.0); MEAN PLATELET VOLUME 9.6 fL (7.9-10.8); MONOCYTES # (AUTO) 0.4 10^3/uL (0.0-1.0); MONOCYTES % (AUTO) 7.2 %; NEUTROPHILS # (AUTO) 2.7 10^3/uL (1.5-6.6); NEUTROPHILS % (AUTO) 52.3 %; PLT - PLATELET COUNT 230 10^3/uL (130-450); RED BLOOD COUNT 2.72 10^6/uL (4.20-5.40); WHITE BLOOD COUNT 5.2 x10^3/uL (4.8-10.8)
[2024-07-24 06:07] LABS: CALCIUM 8.3 mg/dL (8.5-10.3); CREATININE 0.7 mg/dL (0.6-1.3); POTASSIUM 3.5 mmol/L (3.5-4.5)
[2024-07-24 07:39] VITALS: BP 117/63; TEMP 98.2; O2SAT 96
[2024-07-24] MEDS: FERRIC GLUCONATE 125 MG in SODIUM CHLORIDE 0.9% 100ML 100 ML IV ONE (09:10)
--- NOTE | 2024-07-24 12:18 | Discharge Summary ---
Discharge Summary Admit Date: 07/23/24 Discharge Date: 07/24/24 Discharging Provider: Lisbet Carter PA-C Code Status: Attempt Resuscitation DIAGNOSES Discharge Diagnoses with Status of Each Condition: Acute upper GI bleeding, resolved, hemoglobin stable Iron deficiency anemia, given IV iron while inpatient. Follow-up with outpatient iron studies and hemoglobin. 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 DC losartan on discharge. Metoprolol was continued. Follow-up with primary care for recheck blood pressure Acute knee pain, needs outpatient follow-up with orthopedics Encounter for screening involving social determinants of health: Home health ordered. Encouraged patient to obtain Medicaid and complete applications for social assistance. HPI History of Present Illness: Ms Hernandez is a 73 yo F with hx HTN, HLD, depression/anxiety. Presents to the ER with complaints of nausea, vomiting and upper abdominal discomfort. Onset of symptoms was earlier this morning (07/22), patient reports she vomited multiple times at home, she did not clearly see the color/texture of the emesis because it was dark in her home, but does not recall seeing any gillian bloody output. She reports her bowel movement today was normal, denies melena/dark tarry stool, or hematochezia. She was also having some upper abdominal discomfort, which is currently resolved if she lays still. She denies fevers, chills, chest pain, shortness of breath, palpitations. Denies prior history of GI bleed, reports recent colonoscopy, results unknown. She has been having ongoing right knee pain since her fall last week on 07/14, she has been taking the Naproxen that was prescribed for pain control. No other NSAID or ASA that she is aware of - but she does not recall the names of the medications that she takes at home. Right knee XR today shows mod-severe OA, no fractures. Hgb 13 -> 10. CONSULTS | PROCEDURES Procedures: Right knee x-ray: No acute fracture or dislocation. No significant joint effusion. Moderate to severe tricompartmental osteoarthritis most notably in the medial femoral-tibial compartment. HOSPITAL COURSE Hospital Course: Presented to the emergency department with hematemesis. Has a history of upper GI bleed about a year ago was admitted to an outside hospital, records not available to me. Patient reports that at that admission she had 5 units of packed RBCs. She had had a hemoglobin drawn several days prior f at the time of another emergency department visit her hemoglobin on that day was 13.6. On presentation to our emergency department 3 days later she was 10.4. Hemoglobin did drop to a nidus of 7.9 and then remained stable. Upon admission General Surgery was consulted and took the patient to the operating room for upper endoscopy on hospital day 1. Findings were significant for mild gastritis and duodenitis. There was some white exudate at the lower one third of the esophagus. This was biopsied. There was no blood or bleeding seen with mild gastritis in the antrum and duodenum. As stated prior her hemoglobin remained stable without blood transfusion. Iron studies were checked and she was given 1 dose of Ferrlecit. Please see record of blood pressures below. I did discontinue her losartan on discharge. I would recommend following her blood pressure in the outpatient environment. I did continue her metoprolol. Patient's social difficulties are impacting her health significantly. She does not have transportation at the current time. She does not have Medicaid as [facility] has been unable to establish enough contact with her to complete an application. She will have difficulty getting her prescriptions. [facility] will deliver to [place] if she were to have a smart phone that she could use to process the prescriptions and ask for delivery. However, she does not have a working smart phone and therefore does not have access to these services. I have requested home health services to help mitigate some of these difficulties. ALLERGIES Allergies Allergy/AdvReac Type Severity Reaction Status Date / Time clavulanic acid Allergy Nausea Verified 07/22/24 23:45 doxycycline Allergy Hives Verified 07/22/24 23:45 Penicillins Allergy Hives Verified 07/22/24 23:45 Sulfa (Sulfonamide Allergy Hives Verified 07/22/24 23:45 Antibiotics) MEDICATIONS Ambulatory Orders Medication Instructions Recorded Confirmed atorvastatin 20 mg tablet 20 mg PO QPM 06/03/24 07/23/24 duloxetine 60 mg capsule,delayed 120 mg PO QDAY 06/03/24 07/23/24 release metoprolol succinate 25 mg 25 mg PO QDAY #90 tabs 06/09/24 07/23/24 tablet,extended release 24 hr acetaminophen 325 mg tablet 650 mg PO Q6H PRN fever or pain 07/23/24 07/23/24 albuterol sulfate 90 mcg/actuation 2 inh inhalation QID PRN shortness 07/23/24 07/23/24 aerosol inhaler of breath or wheezing diphenhydramine HCl 25 mg capsule 50 mg PO .QHS 07/23/24 07/23/24 (Benadryl) lurasidone 80 mg tablet 80 mg PO QPM 07/23/24 07/23/24 clotrimazole-betamethasone 1 1 applic topical BID #45 grams 07/24/24 %-0.05 % topical cream pantoprazole 40 mg tablet,delayed 40 mg PO DAILY #90 tabs 07/24/24 release (Protonix) sucralfate 1 gram tablet (Carafate) 1 g PO QACHS #120 tabs 07/24/24 PHYSICAL EXAM AT DISCHARGE Physical Exam Other/Comments: General Appearance: positive No acute distress and Alert ENT: positive ENT inspection nml Neck: positive Nml inspection Respiratory: positive Breath sounds nml Cardiovascular: positive Regular rate & rhythm Abdomen: positive Non-tender and No distention Back: positive Nml inspection Skin: positive Color nml Extremities: positive Other (mild edema right knee joint. old pre patellar bruise on the right knee, longitudinal healed incision left knee. ) Neurologic/Psychiatric: positive Oriented x3 LABS 07/24/24 11:22 07/24/24 05:25 FOLLOW UP Follow Up: Mana Ortiz DNP psychiatric TIME SPENT Time Spent in Discharge (Minutes): 45 Discharge Plan Discharge Patient Disposition: 01 Home, Self Care Condition: Stable Prescriptions: New pantoprazole [Protonix] 40 mg tablet,delayed release (DR/EC) 40 mg PO DAILY Qty: 90 3RF sucralfate [Carafate] 1 gram tablet 1 g PO QACHS Qty: 120 2RF Rx Instructions: mix in a small amount of warm water and drink. clotrimazole-betamethasone 1-0.05 % Cream 1 applic topical BID Qty: 45 0RF Continued atorvastatin 20 mg tablet 20 mg PO QPM Patient Comments: take 1 tablet by mouth once daily albuterol sulfate 90 mcg/actuation HFA aerosol inhaler 2 inh INHALATION QID PRN (Reason: shortness of breath or wheezing) Rx Instructions: Inhale 2 puff using inhaler every six hours as needed lurasidone 80 mg tablet 80 mg PO QPM Patient Comments: Pt reports having difficulty getting this prescription diphenhydramine HCl [Benadryl] 25 mg capsule 50 mg PO .QHS Patient Comments: 1-2 CAPS QHS NEEDED FOR SLEEP acetaminophen 325 mg tablet 650 mg PO Q6H PRN (Reason: fever or pain) duloxetine 60 mg capsule,delayed release(DR/EC) 120 mg PO QDAY metoprolol succinate 25 mg tablet extended release 24 hr 25 mg PO QDAY Qty: 90 3RF Discontinued losartan 50 mg tablet 50 mg PO QDAY clopidogrel 75 mg tablet 75 mg PO ONCE Patient Comments: take 1 tablet by mouth once daily famotidine 20 mg tablet 20 mg PO DAILY Qty: 90 3RF Activity Restrictions: No Restrictions Diet: Regular Health Concerns: You came into the hospital because you were vomiting blood. You are losing blood because your GI tract was irritated from taking medications for your knee pain. You should not take medications like Naprosyn anymore. The class of medications that you should not take is known as NSAIDs. Examples of these medications are ibuprofen, Advil, Aleve, Naprosyn, naproxen. You also should not be taking aspirin or Plavix. If the heart doctor tells you you need to take aspirin or Plavix make sure they are aware of your history of GI bleed as this can sometimes be a decision to take these medicines that is made cautiously. For your knee pain you may take Tylenol. This is also known as acetaminophen and sometimes sold [id number] as tablets called "pain reliever". While you have been here you have also been treated for iron deficiency with IV iron. I would want you to have your iron levels rechecked at the time of your primary care follow-up and decide whether or not you need to take iron tablets. I know you have been seen by orthopedics in the past regarding your knee pain but this might be a good time to follow-up about that. Your primary care provider can help you get into see orthopedics about knee pain. I am prescribing 2 medications for you upon discharge. 1 of these is called Protonix. It helps decrease the acid that your stomach is producing which can allow your stomach to heal from the injury sustained related to the medications you were taking. The Protonix is a medicine you should take when you first get up in the morning with a glass of water. Do not take it with food, take it about 30 minutes before you eat. Do not take the Carafate right before or right after you take the Protonix. Additionally I am prescribing a medication called Carafate. This is a very large pill which I want you to dissolve in a small amount of warm water and drink. The medication will coat your gastrointestinal tract and help it heal. Think of it sort of like a liquid Band-Aid for your GI tract. For the rash under your breasts, try to keep this area dry. That is the best thing you can do to help it heal. Additionally I am prescribing a cream that has antifungal and anti-inflammatory drugs in it. That should help as well. Use it until the rash is gone. We are asking home health to come into your home to help you straighten things out with your health care. I have asked for physical therapy, Occupational Therapy, nursing, home health aide, and social work. I am hopeful that you can complete a Medicaid application which would open up a lot of services for you as far as transportation and access to medications and other services. I want you to follow-up with your primary care provider, Mana Ambrose at the [facility] as soon as possible. You also need to see the psychiatric nurse practitioner to help you with your meds. They are also with the [facility]. There is a copy of your EKG on your chart and I know they had wanted that. Care Plan Goals: Follow-up with primary care and die sinker. See orthopedics about your knee Take only Tylenol for pain Take Protonix and Carafate to help your body heal from this gastrointestinal bleeding Assessment: Upper GI bleed caused by nonsteroidal anti-inflammatory drugs Print Language: Armenian Patient Instructions: Surgery Anesthesia After, Bleeding Gastrointestinal Follow-up Care: Ghada Dumont, MELOHNP [Provider Admit Priv/Credential] - Zayra Ambrose ARNP [Provider Admit Priv/Credential] - (hospital followup )
== END 2024-07-24 14:07 | disposition home or self-care (01) | DRG 378 ==
LOC: ED 23:31 → MS2 07-23 03:03
PROVIDERS: ADMIT Student in an Organized Health Care Education/Training Program; ATTEND Student in an Organized Health Care Education/Training Program
DX: D64.9 Anemia, unspecified; R22.41 Localized swelling, mass and lump, right lower limb; Y92.009 Unspecified place in unspecified non-institutional (private) residence as the place of occurrence of the external cause; R11.0 Nausea; R00.0 Tachycardia, unspecified; I10 Essential (primary) hypertension; E78.5 Hyperlipidemia, unspecified; Z87.891 Personal history of nicotine dependence; K29.81 Duodenitis with bleeding; I71.20 Thoracic aortic aneurysm, without rupture, unspecified; Z91.81 History of falling; R07.9 Chest pain, unspecified; R53.1 Weakness; D62 Acute posthemorrhagic anemia; F41.8 Other specified anxiety disorders; Z59.82 Transportation insecurity; M25.551 Pain in right hip; K29.71 Gastritis, unspecified, with bleeding; Z55.6 Problems related to health literacy; T39.395A Adverse effect of other nonsteroidal anti-inflammatory drugs [NSAID], initial encounter; M17.11 Unilateral primary osteoarthritis, right knee; B37.2 Candidiasis of skin and nail